=== PATIENT | male | born 1935 | race Caucasian/White ===

== ENCOUNTER 2016-08-31 09:52 | Observation (INO) | payer MEDICARE ==
[2016-08-31] MEDS ORDERED: NS 0.9% 1000 ML* 1,000 ML IV ONE ×3 (10:40→12:12)
[2016-08-31 11:09] LABS: Hematocrit 41 % (42-52); Hemoglobin 13.4 g/dl (14.0-18.0); Mean Corpuscular HGB Conc 33 g/dl (31-36); Mean Corpuscular Hemoglobin 30 pg (27-31); Mean Corpuscular Volume 91 fL (80-94); Mean Platelet Volume 8 um3 (7.4-10.4); Red Blood Count 4.46 10^6/ul (4.0-5.4); Red Cell Distribution Width 13 % (10.5-15); White Blood Count 19.1 10^3/ul (3.5-10.8)
--- NOTE | 2016-08-31 11:37 | RAD ---
HISTORY: Cough COMPARISONS: None VIEWS: 2: Frontal dual-energy and lateral views of the chest. FINDINGS: CARDIOMEDIASTINAL SILHOUETTE: The cardiomediastinal silhouette is normal. MEDINA: The medina are normal. PLEURA: There is a small right pleural effusion. LUNG PARENCHYMA: There is confluent alveolar opacification of the right lung base ABDOMEN: The upper abdomen is clear. There is no subphrenic gas. BONES AND SOFT TISSUES: The patient is status post median sternotomy OTHER: None. IMPRESSION: SMALL RIGHT PLEURAL EFFUSION WITH RIGHT BASILAR ATELECTASIS VERSUS CONSOLIDATION. RECOMMEND FOLLOW-UP UNTIL RESOLUTION TO EXCLUDE UNDERLYING PULMONARY PARENCHYMAL PATHOLOGY.
[2016-08-31] MEDS ORDERED: Levofloxacin 750 MG IVPREMIX(* 750 MG/150 ML BAG IVPB ONE (11:38)
[2016-08-31 11:50] LABS: ALT 20 U/L (7-52); Albumin 3.5 g/dL (3.2-5.2); Alkaline Phosphatase 67 U/L (34-104); BUN/Creatinine Ratio 11.7 (8-20); Blood Urea Nitrogen 17 mg/dL (6-24); CO2 Carbon Dioxide 20 mmol/L (22-32); Calcium 8.4 mg/dL (8.6-10.3); Chloride 105 mmol/L (101-111); EGFR African American 60.2 (>60); EGFR Non-African American 46.8 (>60); Globulin 2.6 g/dL (2-4); Glucose 133 mg/dL (70-100); Sodium 135 mmol/L (133-145); Total Protein 6.1 g/dL (6.4-8.9)
[2016-08-31] MEDS ORDERED: Albuterol HFA INHALER* 8 gm MDI INH PRN (13:04)
--- NOTE | 2016-08-31 13:24 | RAD ---
HISTORY: Right lung density COMPARISONS: August 31, 2016 VIEWS: Right lateral decubitus views of the chest FINDINGS: CARDIOMEDIASTINAL SILHOUETTE: The cardiomediastinal silhouette is stable MEDINA: The medina are normal. PLEURA: There is a partially layering right pleural effusion. LUNG PARENCHYMA: There is persistent confluent alveolar opacification of the right lung base ABDOMEN: The upper abdomen is clear. There is no subphrenic gas. BONES AND SOFT TISSUES: The patient is status post median sternotomy OTHER: None. IMPRESSION: PARTIALLY LAYERING RIGHT PLEURAL EFFUSION WITH RIGHT BASILAR ATELECTASIS VERSUS CONSOLIDATION
--- NOTE | 2016-08-31 13:35 | ADMNOTE ---
Subjective Date of Service: 08/31/16 Interval History: ADMISSION HISTORY AND PHYSICAL EXAM: Allergies Allergy/AdvReac Type Severity Reaction Status Date / Time No Known Allergies Allergy Verified 08/31/16 10:38 Home Medications Medication Instructions Recorded Confirmed Type Albuterol Sulfate [Proair 2 puff INH Q6HR PRN 08/31/16 08/31/16 History Respiclick] Aspirin EC Low Dose* [Ecotrin EC 81 mg PO DAILY 08/31/16 08/31/16 History Low Dose 81 MG*] Benzonatate [Benzonatate 200 MG 200 mg PO TID PRN 08/31/16 08/31/16 History CAP] Montelukast Sodium TAB* [Singulair 10 mg PO DAILY 08/31/16 08/31/16 History TAB*] Propylene Glycol (Ophth) 0.6 % BOTH EYES TID PRN 08/31/16 08/31/16 History [Lubricant Eye Drops] Rosuvastatin (NF) [Crestor] 20 mg PO DAILY 08/31/16 08/31/16 History HPI: The patient has had a poor appetite for about 2 weeks and some pain in his upper back. He and his have had cough for that time. About 9 AM today he went for a walk and felt dizzy. When he came home he collapsed and passed out for a few seconds. He has never done this before. Family History: Findings - unremarkable Social History: Findings - Lives with his who is his SDM. 2 children. Never smoked. Rare alcohol, never a heavy drinker. Lives in [place]. Past Medical History: Findings - CABG 5 yrs ago. Kidney stone, open removal. Review of Systems - Measurements Intake and Output: Intake and Output Last 24 Hours 08/29/16 08/30/16 08/31/16 09/01/16 06:59 06:59 06:59 06:59 Intake Total 2150 Balance 2150 Weight 175 lb Intake: IV Fluids 1999 IVPB 150 - Review of Systems Constitutional Symptoms: Negative: Weight Gain, Weight Loss, Weakness, Fatigue, Fever, Night Sweats, Unexplained Falls, Other Dermatology: Positive: Normal HEENT: Positive: Normal Eyes: Positive: Normal Thyroid: Positive: Normal Pulmonary: Positive: Cough Cardiology: Positive: Normal Gastroenterology: Positive: Anorexia Genital - Urinary: Positive: Normal Endocrinology: Positive: Normal Hematologic/Lymphatic: Negative: Anemia, Easy Brusing, Hx Leukemia, Hx Lymphoma, Use of Anticoagulant, Use of Antiplatelet Drugs, Other Psychiatry: Positive: Normal Allergic/Immunologic: Negative: Hx Anaphylaxis, Hx Angioedema, Hx Environmental, Hx Seasonal, Athsma, Hx HIV, Immunocompromise, Swollen Glands LymphNodes, Other Objective Active Medications: Aspirin (Aspirin Ec Low Dose*) 81 mg PO DAILY [facility] Enoxaparin Sodium (Lovenox(*)) 30 mg SUBCUT Q24H [facility] Levofloxacin/Dextrose (Levaquin 500 Mg Ivpremix(*)) 500 mg in 100 mls @ 100 mls /hr IVPB Q24H [facility] Montelukast Sodium (Singulair Tab*) 10 mg PO DAILY [facility] Non-Formulary Medication (Albuterol Sulfate [Proair Respiclick]) 2 puff INH Q4H PRN PRN Reason: SHORTNESS OF BREATH Non-Formulary Medication (Benzonatate [Benzonatate 200 Mg Cap]) 200 mg PO TID PRN PRN Reason: COUGH Rosuvastatin Calcium (Crestor (Nf)) 5 mg PO DAILY [facility] Vital Signs 08/31/16 08/31/16 08/31/16 10:24 10:31 10:33 Temperature 98.7 F Pulse Rate 84 80 Respiratory 21 21 Rate Blood Pressure 104/62 97/63 (mmHg) O2 Sat by Pulse 98 95 Oximetry 08/31/16 08/31/16 08/31/16 11:00 11:28 11:29 Temperature Pulse Rate 72 74 Respiratory 24 16 18 Rate Blood Pressure 110/68 103/64 (mmHg) O2 Sat by Pulse 98 Oximetry 08/31/16 08/31/16 08/31/16 11:30 11:32 11:34 Temperature Pulse Rate 66 70 95 Respiratory 16 18 20 Rate Blood Pressure 103/64 75/48 75/48 (mmHg) O2 Sat by Pulse 98 98 98 Oximetry 08/31/16 08/31/16 08/31/16 11:37 12:00 12:30 Temperature Pulse Rate 66 66 69 Respiratory 21 18 21 Rate Blood Pressure 106/61 115/67 114/56 (mmHg) O2 Sat by Pulse 98 98 98 Oximetry 08/31/16 13:14 Temperature 97.8 F Pulse Rate 85 Respiratory 16 Rate Blood Pressure 119/69 (mmHg) O2 Sat by Pulse Oximetry Oxygen Devices in Use Now: None Appearance: Alert, partly up on ED stretcher. In good spirits. Looks comfortable. Eyes: No Scleral Icterus, PERRLA Ears/Nose/Mouth/Throat: Clear Oropharnyx, Mucous Membranes Moist Neck: NL Appearance and Movements; NL JVP, No Thyroid Enlargement, Masses Respiratory: Symmetrical Chest Expansion and Respiratory Effort, Clear to Percussion, - - diminished BS R base Cardiovascular: NL Sounds; No Murmurs; No JVD, RRR, No Edema, - Abdominal: NL Sounds; No Tenderness; No Distention, No Hepatosplenomegaly, - Extremities: No Edema, No Clubbing, Cyanosis, - Skin: No Rash or Ulcers, No Nodules or Sclerosis, - Neurological: Alert and Oriented x 3, NL Sensation Result Diagrams: 08/31/16 10:55 08/31/16 10:55 Additional Lab and Data: Lab Results 08/31/16 08/31/16 08/31/16 Range/Units 10:55 10:55 10:55 WBC 19.1 H (3.5-10.8) 10^3/ul RBC 4.46 (4.0-5.4) 10^6/ul Hgb 13.4 L (14.0-18.0) g/dl Hct 41 L (42-52) % MCV 91 (80-94) fL MCH 30 (27-31) pg MCHC 33 (31-36) g/dl RDW 13 (10.5-15) % Plt Count 261 (150-450) 10^3/ul MPV 8 (7.4-10.4) um3 Neut % (Auto) 86.4 H (38-83) % Lymph % (Auto) 7.2 L (25-47) % [place] % (Auto) 6.0 (1-9) % Eos % (Auto) 0.2 (0-6) % Baso % (Auto) 0.2 (0-2) % Absolute Neuts (auto) 16.5 H (1.5-7.7) 10^3/ul Absolute Lymphs (auto) 1.4 (1.0-4.8) 10^3/ul Absolute Monos (auto) 1.1 H (0-0.8) 10^3/ul Absolute Eos (auto) 0 (0-0.6) 10^3/ul Absolute Basos (auto) 0 (0-0.2) 10^3/ul Absolute Nucleated RBC 0 10^3/ul Nucleated RBC % 0 Sodium 135 (133-145) mmol/L Potassium TNP Chloride 105 (101-111) mmol/L Carbon Dioxide 20 L (22-32) mmol/L Anion Gap TNP BUN 17 (6-24) mg/dL Creatinine 1.45 H (0.67-1.17) mg/dL Est GFR ( Amer) 60.2 (>60) Est GFR (Non-Af Amer) 46.8 (>60) BUN/Creatinine Ratio 11.7 (8-20) Glucose 133 H (70-100) mg/dL Lactic Acid 1.8 (0.5-2.0) mmol/L Calcium 8.4 L (8.6-10.3) mg/dL Total Bilirubin 0.70 (0.2-1.0) mg/dL AST TNP ALT 20 (7-52) U/L Alkaline Phosphatase 67 (34-104) U/L CK-MB (CK-2) 4.4 (0.6-6.3) ng/mL Troponin I 0.00 (<0.04) ng/mL C-Reactive Protein 85.20 H (< 5.00) mg/L B-Natriuretic Peptide ( - 100) pg/mL Total Protein 6.1 L (6.4-8.9) g/dL Albumin 3.5 (3.2-5.2) g/dL Globulin 2.6 (2-4) g/dL Albumin/Globulin Ratio 1.3 (1-3) Influenza A (Rapid) (Negative) Influenza B (Rapid) (Negative) 08/31/16 08/31/16 Range/Units 10:55 11:18 WBC (3.5-10.8) 10^3/ul RBC (4.0-5.4) 10^6/ul Hgb (14.0-18.0) g/dl Hct (42-52) % MCV (80-94) fL MCH (27-31) pg MCHC (31-36) g/dl RDW (10.5-15) % Plt Count (150-450) 10^3/ul MPV (7.4-10.4) um3 Neut % (Auto) (38-83) % Lymph % (Auto) (25-47) % [place] % (Auto) (1-9) % Eos % (Auto) (0-6) % Baso % (Auto) (0-2) % Absolute Neuts (auto) (1.5-7.7) 10^3/ul Absolute Lymphs (auto) (1.0-4.8) 10^3/ul Absolute Monos (auto) (0-0.8) 10^3/ul Absolute Eos (auto) (0-0.6) 10^3/ul Absolute Basos (auto) (0-0.2) 10^3/ul Absolute Nucleated RBC 10^3/ul Nucleated RBC % Sodium (133-145) mmol/L Potassium Chloride (101-111) mmol/L Carbon Dioxide (22-32) mmol/L Anion Gap BUN (6-24) mg/dL Creatinine (0.67-1.17) mg/dL Est GFR ( Amer) (>60) Est GFR (Non-Af Amer) (>60) BUN/Creatinine Ratio (8-20) Glucose (70-100) mg/dL Lactic Acid (0.5-2.0) mmol/L Calcium (8.6-10.3) mg/dL Total Bilirubin (0.2-1.0) mg/dL AST ALT (7-52) U/L Alkaline Phosphatase (34-104) U/L CK-MB (CK-2) (0.6-6.3) ng/mL Troponin I (<0.04) ng/mL C-Reactive Protein (< 5.00) mg/L B-Natriuretic Peptide 101 H ( - 100) pg/mL Total Protein (6.4-8.9) g/dL Albumin (3.2-5.2) g/dL Globulin (2-4) g/dL Albumin/Globulin Ratio (1-3) Influenza A (Rapid) Negative (Negative) Influenza B (Rapid) Negative (Negative) Microbiology and Other Data: Microbiology 08/31/16 10:55 Influenza Types A,B Antigen (ABDON) - Final Nasal Specimen received for Influenza A/B Molecular testing Assess/Plan/Problems-Billing Assessment: - Patient Problems (1) Pleural effusion, right Current Visit: Yes Status: Acute Code(s): J90 - PLEURAL EFFUSION, NOT ELSEWHERE CLASSIFIED SNOMED Code(s): 81213243 Comment: Echo, decubitus X-rays pending. Continue levofloxacin. (2) Syncope Current Visit: Yes Status: Acute Code(s): R55 - SYNCOPE AND COLLAPSE SNOMED Code(s): 784705156 Comment: Tele. Orthostatic VS, cortisol level, echo. (3) CAD (coronary artery disease) Current Visit: Yes Status: Acute Code(s): I25.10 - ATHSCL HEART DISEASE OF [place] CORONARY ARTERY W/O ANG PCTRS SNOMED Code(s): 02316795 Comment: Continue ASA, rosuvastatin.
--- NOTE | 2016-08-31 13:41 | RAD ---
INDICATION: Airspace disease right lower chest COMPARISON: Chest x-ray same date TECHNIQUE: Real-time scans the right lower chest were obtained FINDINGS: There is a small right-sided pleural effusion. The chest x-ray findings also demonstrate the presence of infiltrate or atelectasis IMPRESSION: SMALL RIGHT-SIDED EFFUSION
--- NOTE | 2016-08-31 13:56 | ED ---
Kevin Collazo Matthew, scribed for Terrance Mortensen MD on 08/31/16 at 1024 . Syncope/Near Syncope - HPI Summary HPI Summary: An 80 y/o male presents to the ED after syncopating this morning. Today, the patient became lightheaded while walking and had syncopal episode with LOC. Associated symptoms include SOB, lightheadedness, decreased appetite, and paleness. The patient denies fever, headache, and palpitations. Per the daughter , the patient has been general ill for 1.5 weeks with an associated constant cough. As a result of the cough, the patient has had chest pain and back pain. The patient has a Hx of CABG x3 5 years ago and HLD. - History Of Current Complaint Hx Obtained From: Patient, Family/Stogie Packer - Daughter Onset/Duration: Resolved Timing: Seconds Context: Loss Of Consciousness Activity At Onset: Exertion Associated Head Trauma: No Aggravating Factor(s): Exertion Alleviating Factor(s): Spontaneous Resolution Associated Signs And Symptoms: Decreased Oral Intake, Lightheadedness, Shortness Of Breath, Other - pale, chest pain secondary to coughing, back pain secondary to coughing - Allergies/Home Medications Allergies/Adverse Reactions: Allergies Allergy/AdvReac Type Severity Reaction Status Date / Time No Known Allergies Allergy Verified 08/31/16 10:38 Home Medications: Home Medications Albuterol Sulfate [Proair Respiclick] 2 puff INH Q6HR PRN 08/31/16 [History Confirmed 08/31/16] Aspirin EC Low Dose* [Ecotrin EC Low Dose 81 MG*] 81 mg PO DAILY 08/31/16 [ History Confirmed 08/31/16] Benzonatate [Benzonatate 200 MG CAP] 200 mg PO TID PRN 08/31/16 [History Confirmed 08/31/16] Montelukast Sodium TAB* [Singulair TAB*] 10 mg PO DAILY 08/31/16 [History Confirmed 08/31/16] Propylene Glycol (Ophth) [Lubricant Eye Drops] 0.6 % BOTH EYES TID PRN 08/31/16 [History Confirmed 08/31/16] Rosuvastatin (NF) [Crestor] 20 mg PO DAILY 08/31/16 [History Confirmed 08/31/16] PMH/Surg Hx/FS Hx/Imm Hx Cardiovascular History: Reports: Hx Hypercholesterolemia Denies: Hx Hypertension Respiratory History: Reports: Hx Chronic Bronchitis - Surgical History Surgery Procedure, Year, and Place: CABG x3 Infectious Disease History: Denies: Traveled Outside the [place] in Last 30 Days - Family History Known Family History: Negative: Cardiac Disease, Hypertension, Diabetes - Social History Lives: With Family Alcohol Use: None Hx Substance Use: No Substance Use Type: Reports: None Hx Tobacco Use: No Review of Systems Constitutional: Other - Pale Negative: Fever Eyes: Negative ENT: Negative Positive: Chest Pain - secondary to coughing. Negative: Palpitations Positive: Shortness Of Breath, Cough Gastrointestinal: Negative Genitourinary: Negative Positive: Myalgia - back pain secondary to coughing Skin: Negative Neurological: Other - lightheadedness Negative: Headache Psychological: Normal All Other Systems Reviewed And Are Negative: Yes Physical Exam - Summary Physical Exam Summary: GENERAL: Patient is a well developed and nourished male who is lying comfortable in the stretcher. Patient is not in any acute respiratory distress. HEAD AND FACE: No signs of trauma. No ecchymosis, hematomas or skull depressions. No sinus tenderness. EYES: PERRLA, EOMI x 2, No injected conjunctiva, no nystagmus. No photophobia. EARS: Hearing grossly intact. Ear canals and tympanic membranes are within normal limits. MOUTH: Oropharynx within normal limits. NECK: Supple, trachea is midline, no adenopathy, no JVD, no carotid bruit, no c- spine tenderness, neck with full ROM. No meningeal signs, no Kernig's or brudzinskis signs. CHEST: Symmetric, no tenderness at palpation. Positive well healed scar in the center of the chest secondary to an old scar. LUNGS: Positive bilateral crackles. CVS: Regular rate and rhythm, S1 and S2 present, no murmurs or gallops appreciated. ABDOMEN: Soft, non-tender. No signs of distention. No rebound no guarding, and no masses palpated. Bowel sounds are normal. EXTREMITIES: FROM in all major joints, no edema, no cyanosis or clubbing. NEURO: Alert and oriented x 3. No acute neurological deficits. Speech is normal and follows commands. SKIN: Dry and warm Triage Information Reviewed: Yes Vital Signs On Initial Exam: Initial Vitals Temp Pulse Resp BP Pulse Ox 98.7 F 82 21 104/62 98 04/12/17 10:24 08/31/16 10:24 08/31/16 10:24 08/31/16 10:24 08/31/16 10:24 Vital Signs Reviewed: Yes Diagnostics - Vital Signs Vital Signs Temp Pulse Resp BP Pulse Ox 08/31/16 11:34 95 20 75/48 98 08/31/16 11:29 74 18 103/64 08/31/16 11:28 72 16 110/68 98 08/31/16 11:00 24 08/31/16 10:33 80 21 95 08/31/16 10:31 97/63 08/31/16 10:24 98.7 F 84 21 104/62 98 - Laboratory Lab Results: Lab Results 08/31/16 08/31/16 08/31/16 Range/Units 10:55 10:55 10:55 WBC 19.1 H (3.5-10.8) 10^3/ul RBC 4.46 (4.0-5.4) 10^6/ul Hgb 13.4 L (14.0-18.0) g/dl Hct 41 L (42-52) % MCV 91 (80-94) fL MCH 30 (27-31) pg MCHC 33 (31-36) g/dl RDW 13 (10.5-15) % Plt Count 261 (150-450) 10^3/ul MPV 8 (7.4-10.4) um3 Neut % (Auto) 86.4 H (38-83) % Lymph % (Auto) 7.2 L (25-47) % [place] % (Auto) 6.0 (1-9) % Eos % (Auto) 0.2 (0-6) % Baso % (Auto) 0.2 (0-2) % Absolute Neuts (auto) 16.5 H (1.5-7.7) 10^3/ul Absolute Lymphs (auto) 1.4 (1.0-4.8) 10^3/ul Absolute Monos (auto) 1.1 H (0-0.8) 10^3/ul Absolute Eos (auto) 0 (0-0.6) 10^3/ul Absolute Basos (auto) 0 (0-0.2) 10^3/ul Absolute Nucleated RBC 0 10^3/ul Nucleated RBC % 0 Sodium 135 (133-145) mmol/L Potassium TNP Chloride 105 (101-111) mmol/L Carbon Dioxide 20 L (22-32) mmol/L Anion Gap TNP BUN 17 (6-24) mg/dL Creatinine 1.45 H (0.67-1.17) mg/dL Est GFR ( Amer) 60.2 (>60) Est GFR (Non-Af Amer) 46.8 (>60) BUN/Creatinine Ratio 11.7 (8-20) Glucose 133 H (70-100) mg/dL Lactic Acid 1.8 (0.5-2.0) mmol/L Calcium 8.4 L (8.6-10.3) mg/dL Total Bilirubin 0.70 (0.2-1.0) mg/dL AST TNP ALT 20 (7-52) U/L Alkaline Phosphatase 67 (34-104) U/L CK-MB (CK-2) 4.4 (0.6-6.3) ng/mL Troponin I 0.00 (<0.04) ng/mL C-Reactive Protein 85.20 H (< 5.00) mg/L B-Natriuretic Peptide ( - 100) pg/mL Total Protein 6.1 L (6.4-8.9) g/dL Albumin 3.5 (3.2-5.2) g/dL Globulin 2.6 (2-4) g/dL Albumin/Globulin Ratio 1.3 (1-3) Influenza A (Rapid) (Negative) Influenza B (Rapid) (Negative) 08/31/16 08/31/16 Range/Units 10:55 11:18 WBC (3.5-10.8) 10^3/ul RBC (4.0-5.4) 10^6/ul Hgb (14.0-18.0) g/dl Hct (42-52) % MCV (80-94) fL MCH (27-31) pg MCHC (31-36) g/dl RDW (10.5-15) % Plt Count (150-450) 10^3/ul MPV (7.4-10.4) um3 Neut % (Auto) (38-83) % Lymph % (Auto) (25-47) % [place] % (Auto) (1-9) % Eos % (Auto) (0-6) % Baso % (Auto) (0-2) % Absolute Neuts (auto) (1.5-7.7) 10^3/ul Absolute Lymphs (auto) (1.0-4.8) 10^3/ul Absolute Monos (auto) (0-0.8) 10^3/ul Absolute Eos (auto) (0-0.6) 10^3/ul Absolute Basos (auto) (0-0.2) 10^3/ul Absolute Nucleated RBC 10^3/ul Nucleated RBC % Sodium (133-145) mmol/L Potassium Chloride (101-111) mmol/L Carbon Dioxide (22-32) mmol/L Anion Gap BUN (6-24) mg/dL Creatinine (0.67-1.17) mg/dL Est GFR ( Amer) (>60) Est GFR (Non-Af Amer) (>60) BUN/Creatinine Ratio (8-20) Glucose (70-100) mg/dL Lactic Acid (0.5-2.0) mmol/L Calcium (8.6-10.3) mg/dL Total Bilirubin (0.2-1.0) mg/dL AST ALT (7-52) U/L Alkaline Phosphatase (34-104) U/L CK-MB (CK-2) (0.6-6.3) ng/mL Troponin I (<0.04) ng/mL C-Reactive Protein (< 5.00) mg/L B-Natriuretic Peptide 101 H ( - 100) pg/mL Total Protein (6.4-8.9) g/dL Albumin (3.2-5.2) g/dL Globulin (2-4) g/dL Albumin/Globulin Ratio (1-3) Influenza A (Rapid) Negative (Negative) Influenza B (Rapid) Negative (Negative) Result Diagrams: 08/31/16 10:55 08/31/16 10:55 Lab Statement: Any lab studies that have been ordered have been reviewed, and results considered in the medical decision making process. - Radiology CXR Xray Interpretation: Positive (See Comments) - IMPRESSION: SMALL RIGHT PLEURAL EFFUSION WITH RIGHT BASILAR ATELECTASIS VERSUS CONSOLIDATION. RECOMMEND FOLLOW- UP UNTIL RESOLUTION TO EXCLUDE UNDERLYING PULMONARY PARENCHYMAL PATHOLOGY. Radiology Interpretation Completed By: Radiologist - EKG 09:55 Cardiac Rate: NL - 80 bpm EKG Rhythm: Sinus Rhythm EKG Interpretation: No STEMI, low voltage EKG Course/Dx Assessment/Plan: An 80 y/o male presents to the ED after syncopating this morning. Today, the patient became lightheaded while walking and had a syncopal with LOC. Associated symptoms include SOB, lightheadedness, decreased appetite, and paleness. The patient denies fever, headache, and palpitations. Per the daughter, the patient has been general ill for 1.5 weeks with an associated constant cough. As a result of the cough, the patient has had chest pain and back pain. The patient has a Hx of CABG x3 5 years ago and HLD. Blood work shows WBC of 19.1 with chronic slight anemia, no bands. Creatinine 1.45 possibly secondary to dehydration. Glucose of 133, calcium of 8.4, C - reactive protein of 85.2, and BNP of 101. Influenza A&B is negative. CXR shows small right pleural effusion with right basilar atelectasis versus consolidation. In the ED course, the patient was slightly hypotensive and was given 2L IV fluids. He was placed on Levaquin for the pneumonia. The patient was positive for orthostatics possibly secondary to dehydration again. At this point, I discussed my physical exam findings with Dr. Ivan who will admit the patient. He will decide if the patient goes to telemetry or ICU. However, his BP has improved. - Diagnoses Provider Diagnoses: Pneumonia, Orthostatic hypotension, SYNCOPE - Physician Notifications Discussed Care Of Patient With: Dr. Ivan (Hospitalist) at 12:01 -- Notified of patient's history and will admit the patient. Discharge - Discharge Plan Condition: Stable Disposition: ADMITTED TO [facility] documentation as recorded by the Kevin valencia Matthew accurately reflects the service I personally performed and the decisions made by me, Terrance Mortensen MD.
[2016-08-31] MEDS: Enoxaparin(*) 40 MG/0.4 ML SYR SUBCUT SCH ×2 (14:34→14:40)
[2016-08-31] MEDS: Benzonatate CAP* 100 MG PO PRN ×2 (14:34→21:37)
[2016-08-31] MEDS ORDERED: Enoxaparin(*) 30 MG/0.3 ML SYR SUBCUT SCH (15:00)
[2016-08-31] MEDS: HYDROcodone/ACETAMIN 5-325 MG* 1 TAB PO PRN ×2 (15:12→18:33)
[2016-08-31] MEDS ORDERED: Perflutren Prot Type A Micr (NF) 3 ML SDV IV ONE ×2 (15:58→16:02)
[2016-08-31 16:12] LABS: BUN/Creatinine Ratio 13.6 (8-20); Calcium 7.5 mg/dL (8.6-10.3); EGFR African American 76.4 (>60); EGFR Non-African American 59.4 (>60)
--- NOTE | 2016-08-31 17:13 | ECHO ---
Patient: DAVID LINDO [facility] Rec#: [id number] : 1935 Date: 08/31/2016 Age: 80y Height: 170.18 cm / 67.0 in Weight: 79.38 kg / 175.0 lbs Sex: M BSA: 1.91 Room#: 453 Admit Date#: 08/31/2016 Type: Inpatient Referring: Idris Ivan MD Reading: Anna Huntley MD Story Reader: Nalini JimenezRDCS,RDMS Transthoracic Echocardiogram Indication: Syncope BP: 119/69 HR: 84 Rhythm: NSR Indications Syncope Findings History: CAD, CABG, HLD. Technical Comments: The study quality is fair. Left Ventricle: The left ventricular chamber size is normal. Mild concentric left ventricular hypertrophy is observed. Global left ventricular wall motion and contractility are within normal limits. The estimated ejection fraction is 60-65%. Abnormal left ventricular diastolic filling is observed, consistent with impaired relaxation. Left Atrium: The left atrium is slightly dilated. Right Ventricle: The right ventricular cavity size is normal. The right ventricular global systolic function is low normal. Right Atrium: The right atrium is not well visualized. Aortic Valve: The aortic valve leaflets are mildly thickened. There is no evidence of aortic regurgitation. There is no evidence of aortic stenosis. Mitral Valve: The mitral valve leaflets appear normal. There is no evidence of mitral regurgitation. There is no evidence of mitral stenosis. Tricuspid Valve: The tricuspid valve leaflets are normal. There is no evidence of tricuspid valve regurgitation. Unable to estimate the right ventricular systolic pressure. Pulmonic Valve: The pulmonic valve structure is not well visualized. Pericardium: There is no significant pericardial effusion. Aorta: There is no dilatation of the aortic arch. The aortic root is normal in size. Pulmonary Artery: The main pulmonary artery is not well visualized. Venous: The inferior vena cava is not visualized. Contrast: Optison was used to optimize study. A total of 1 ml was used. Conclusions Mild concentric left ventricular hypertrophy is observed. Global left ventricular wall motion and contractility are within normal limits, normal to hyperdynamic systolic function. Echo enhancement agent used, good deliniation of endothelial wall. The estimated ejection fraction is 65%. Abnormal left ventricular diastolic filling is observed, consistent with impaired relaxation. The right ventricular global systolic function is low normal. All valves show grossly normal function. The aortic valve leaflets are mildly thickened with good function. No prior echo to compare. Measurements Name Value Normal Range RVIDd (AP) 2D 2 cm (0.9 - 2.6) IVSd (2D) 1.3 cm (0.6 - 1) LVPWd (2D) 1.2 cm (0.6 - 1) LVIDd (2D) 3.4 cm (3.6 - 5.4) LVIDs (2D) 2.5 cm - LV FS (2D) 26 % (25 - 45) Aortic Annulus 2 cm (1.4 - 2.6) Ao root diameter (2D) 2.6 cm (2.1 - 3.5) Ascending Ao 2.6 cm (2.1 - 3.4) Aortic arch 2.5 cm (1.8 - 3.4) LA dimension (AP) 2D 3.5 cm (2.3 - 3.8) LAd ISD 4CH 4.6 cm (2.9 - 5.3) LA ISD 4CH W 4.6 cm (2.5 - 4.5) Name Value Normal Range MV E-wave Vmax 0.6 m/sec - MV deceleration time 192 msec - MV A-wave Vmax 0.8 m/sec - MV E:A ratio 0.7 ratio - LV septal e' Vmax 0.06 m/sec - LV lateral e' Vmax 0.09 m/sec - LV E:e' septal ratio 10 ratio - LV E:e' lateral ratio 7 ratio - Name Value Normal Range AV Vmax 1.1 m/sec - AV VTI 19 cm - AV peak gradient 5 mmHg - AV mean gradient 2.4 mmHg - LVOT Vmax 0.9 m/sec - LVOT VTI 17 cm - LVOT peak gradient 3.2 mmHg - LVOT mean gradient 1.8 mmHg - JUAN Vmax 0.6 m/sec - Name Value Normal Range RAP 8 mmHg - Name Value Normal Range PV Vmax 0.7 m/sec - PV peak gradient 2 mmHg -
[2016-08-31] MEDS ORDERED: NS 0.9% 1000 ML* 1,000 ML IV SCH (18:30)
[2016-08-31] MEDS ORDERED: Atorvastatin* 10 MG TAB PO SCH (21:00)
[2016-08-31] MEDS ORDERED: Aspirin EC Low Dose* 81 MG TAB.EC PO SCH (21:00)
[2016-08-31] MEDS ORDERED: Montelukast Sodium TAB* 10 MG PO SCH (21:00)
[2016-09-01] MEDS: Benzonatate CAP* 100 MG PO PRN (06:44)
[2016-09-01] MEDS: HYDROcodone/ACETAMIN 5-325 MG* 1 TAB PO PRN (06:47)
[2016-09-01] MEDS ORDERED: Levofloxacin TAB* 250 MG PO ONE (09:02)
--- NOTE | 2016-09-01 09:04 | DCNOTE ---
"Subjective Date of Service: 09/01/16 Interval History: Feels much better today. Cough with yellow sputum, mild. Not SOB. R chest pain improved, responds well to hydrocodone/APAP. Cough responded well to benzonatate. Family History: Findings - unremarkable Social History: Findings - Lives with his who is his SDM. 2 children. Never smoked. Rare alcohol, never a heavy drinker. Lives in [place]. Past Medical History: Findings - CABG 5 yrs ago. Kidney stone, open removal. Objective Active Medications: Hydrocodone Bitart/Acetaminophen ([place] [address] 5-325 Tab*) 1 tab PO Q3H PRN PRN Reason: PAIN - MODERATE Last Admin: 09/01/16 06:47 Dose: 1 tab Albuterol (Ventolin Hfa Inhaler*) 2 puff INH Q4H PRN PRN Reason: SHORTNESS OF BREATH Aspirin (Aspirin Ec Low Dose*) 81 mg PO BEDTIME [facility] Last Admin: 08/31/16 21:36 Dose: 81 mg Atorvastatin Calcium (Lipitor*) 10 mg PO BEDTIME [facility] Last Admin: 08/31/16 21:36 Dose: 10 mg Benzonatate (Tessalon Cap*) 200 mg PO TID PRN PRN Reason: COUGH Last Admin: 09/01/16 06:44 Dose: 200 mg Enoxaparin Sodium (Lovenox(*)) 30 mg SUBCUT Q24H [facility] Last Admin: 08/31/16 15:13 Dose: 30 mg Levofloxacin/Dextrose (Levaquin 250 Mg Ivpremx(*)) 250 mg in 50 mls @ 50 mls/ hr IVPB Q24H [facility] Sodium Chloride (Ns 0.9% 1000 Ml*) 1,000 mls @ 75 mls/hr IV PER RATE [facility] Last Admin: 08/31/16 18:34 Dose: 75 mls/hr Montelukast Sodium (Singulair Tab*) 10 mg PO BEDTIME [facility] Last Admin: 08/31/16 21:36 Dose: 10 mg Vital Signs 08/31/16 08/31/16 08/31/16 12:30 13:13 13:14 Temperature 97.8 F Pulse Rate 69 85 Respiratory 21 16 Rate Blood Pressure 114/56 119/69 119/69 (mmHg) O2 Sat by Pulse 98 Oximetry 08/31/16 08/31/16 08/31/16 13:15 13:30 13:59 Temperature Pulse Rate 74 72 73 Respiratory 20 19 20 Rate Blood Pressure 119/70 (mmHg) O2 Sat by Pulse 97 96 99 Oximetry 08/31/16 08/31/16 08/31/16 14:15 14:47 15:12 Temperature 97.2 F Pulse Rate 81 Respiratory 22 22 16 Rate Blood Pressure 136/70 (mmHg) O2 Sat by Pulse 100 Oximetry 08/31/16 08/31/16 08/31/16 15:17 17:12 18:33 Temperature 97.9 F Pulse Rate 88 Respiratory 16 14 16 Rate Blood Pressure 112/54 (mmHg) O2 Sat by Pulse 98 Oximetry 08/31/16 08/31/16 09/01/16 19:24 20:26 00:55 Temperature 98.0 F 97.6 F Pulse Rate 83 79 Respiratory 18 16 20 Rate Blood Pressure 111/58 133/67 (mmHg) O2 Sat by Pulse 93 96 Oximetry 09/01/16 09/01/16 03:24 06:47 Temperature 97.5 F Pulse Rate 81 Respiratory 20 16 Rate Blood Pressure 132/64 (mmHg) O2 Sat by Pulse 97 Oximetry Oxygen Devices in Use Now: None Appearance: Alert, sitting on the edge of his bed. In good spirits. Looks comfortable. Eyes: No Scleral Icterus Ears/Nose/Mouth/Throat: Clear Oropharnyx, Mucous Membranes Moist Neck: NL Appearance and Movements; NL JVP, No Thyroid Enlargement, Masses Respiratory: Symmetrical Chest Expansion and Respiratory Effort, Clear to Percussion, - - Fatty consistency enlarged area R upper axillary/back area, ? lipoma. No tenderness. Cardiovascular: NL Sounds; No Murmurs; No JVD, RRR, No Edema, - Extremities: No Edema, No Clubbing, Cyanosis, - Skin: No Nodules or Sclerosis, - - mild ecchymosis lower R axillary line and R back. Neurological: Alert and Oriented x 3, NL Sensation Result Diagrams: 08/31/16 10:55 08/31/16 15:44 Additional Lab and Data: Lab Results 08/31/16 08/31/16 08/31/16 Range/Units 10:55 10:55 10:55 WBC 19.1 H (3.5-10.8) 10^3/ul RBC 4.46 (4.0-5.4) 10^6/ul Hgb 13.4 L (14.0-18.0) g/dl Hct 41 L (42-52) % MCV 91 (80-94) fL MCH 30 (27-31) pg MCHC 33 (31-36) g/dl RDW 13 (10.5-15) % Plt Count 261 (150-450) 10^3/ul MPV 8 (7.4-10.4) um3 Neut % (Auto) 86.4 H (38-83) % Lymph % (Auto) 7.2 L (25-47) % Wake % (Auto) 6.0 (1-9) % Eos % (Auto) 0.2 (0-6) % Baso % (Auto) 0.2 (0-2) % Absolute Neuts (auto) 16.5 H (1.5-7.7) 10^3/ul Absolute Lymphs (auto) 1.4 (1.0-4.8) 10^3/ul Absolute Monos (auto) 1.1 H (0-0.8) 10^3/ul Absolute Eos (auto) 0 (0-0.6) 10^3/ul Absolute Basos (auto) 0 (0-0.2) 10^3/ul Absolute Nucleated RBC 0 10^3/ul Nucleated RBC % 0 Sodium 135 (133-145) mmol/L Potassium TNP Chloride 105 (101-111) mmol/L Carbon Dioxide 20 L (22-32) mmol/L Anion Gap TNP BUN 17 (6-24) mg/dL Creatinine 1.45 H (0.67-1.17) mg/dL Est GFR ( Amer) 60.2 (>60) Est GFR (Non-Af Amer) 46.8 (>60) BUN/Creatinine Ratio 11.7 (8-20) Glucose 133 H (70-100) mg/dL Lactic Acid 1.8 (0.5-2.0) mmol/L Calcium 8.4 L (8.6-10.3) mg/dL Total Bilirubin 0.70 (0.2-1.0) mg/dL AST TNP ALT 20 (7-52) U/L Alkaline Phosphatase 67 (34-104) U/L CK-MB (CK-2) 4.4 (0.6-6.3) ng/mL Troponin I 0.00 (<0.04) ng/mL C-Reactive Protein 85.20 H (< 5.00) mg/L B-Natriuretic Peptide ( - 100) pg/mL Total Protein 6.1 L (6.4-8.9) g/dL Albumin 3.5 (3.2-5.2) g/dL Globulin 2.6 (2-4) g/dL Albumin/Globulin Ratio 1.3 (1-3) Influenza A (Rapid) (Negative) Influenza B (Rapid) (Negative) 08/31/16 08/31/16 Range/Units 10:55 11:18 WBC (3.5-10.8) 10^3/ul RBC (4.0-5.4) 10^6/ul Hgb (14.0-18.0) g/dl Hct (42-52) % MCV (80-94) fL MCH (27-31) pg MCHC (31-36) g/dl RDW (10.5-15) % Plt Count (150-450) 10^3/ul MPV (7.4-10.4) um3 Neut % (Auto) (38-83) % Lymph % (Auto) (25-47) % Wake % (Auto) (1-9) % Eos % (Auto) (0-6) % Baso % (Auto) (0-2) % Absolute Neuts (auto) (1.5-7.7) 10^3/ul Absolute Lymphs (auto) (1.0-4.8) 10^3/ul Absolute Monos (auto) (0-0.8) 10^3/ul Absolute Eos (auto) (0-0.6) 10^3/ul Absolute Basos (auto) (0-0.2) 10^3/ul Absolute Nucleated RBC 10^3/ul Nucleated RBC % Sodium (133-145) mmol/L Potassium Chloride (101-111) mmol/L Carbon Dioxide (22-32) mmol/L Anion Gap BUN (6-24) mg/dL Creatinine (0.67-1.17) mg/dL Est GFR ( Amer) (>60) Est GFR (Non-Af Amer) (>60) BUN/Creatinine Ratio (8-20) Glucose (70-100) mg/dL Lactic Acid (0.5-2.0) mmol/L Calcium (8.6-10.3) mg/dL Total Bilirubin (0.2-1.0) mg/dL AST ALT (7-52) U/L Alkaline Phosphatase (34-104) U/L CK-MB (CK-2) (0.6-6.3) ng/mL Troponin I (<0.04) ng/mL C-Reactive Protein (< 5.00) mg/L B-Natriuretic Peptide 101 H ( - 100) pg/mL Total Protein (6.4-8.9) g/dL Albumin (3.2-5.2) g/dL Globulin (2-4) g/dL Albumin/Globulin Ratio (1-3) Influenza A (Rapid) Negative (Negative) Influenza B (Rapid) Negative (Negative) Microbiology and Other Data: Microbiology 08/31/16 10:55 Influenza Types A,B Antigen (ABDON) - Final Nasal Specimen received for Influenza A/B Molecular testing Assess/Plan/Problems-Billing Assessment: - Patient Problems (1) Pleural effusion, right Current Visit: Yes Status: Acute Code(s): J90 - PLEURAL EFFUSION, NOT ELSEWHERE CLASSIFIED SNOMED Code(s): 13013486 Comment: Small effusion on echo, suspect parapneumonic effusion. I note his has URI sx's. Continue levofloxacin 6 more days as outpt. (2) Syncope Current Visit: Yes Status: Acute Code(s): R55 - SYNCOPE AND COLLAPSE SNOMED Code(s): 822120260 Comment: Tele showed no significant arrhytmias. Cortisol level 22. Echo unremarkable. (3) CAD (coronary artery disease) Current Visit: Yes Status: Acute Code(s): I25.10 - ATHSCL HEART DISEASE OF [place] CORONARY ARTERY W/O ANG PCTRS SNOMED Code(s): 85054638 Comment: Continue ASA, rosuvastatin. Status and Disposition: Discharge now. Pt offered fup at [facility]. Search Terms: jarod stoll, 1935 Search Date: 09/01/2016 09:08:13 AM This report was requested by: Idris Ivan | Reference #: [id number] There are no results for the search terms that you entered."
[2016-09-01 09:15] LABS: Hematocrit 31 % (42-52); Hemoglobin 10.2 g/dl (14.0-18.0); Mean Corpuscular HGB Conc 33 g/dl (31-36); Mean Corpuscular Hemoglobin 30 pg (27-31); Mean Corpuscular Volume 90 fL (80-94); Mean Platelet Volume 8 um3 (7.4-10.4); Red Blood Count 3.44 10^6/ul (4.0-5.4); Red Cell Distribution Width 13 % (10.5-15); White Blood Count 14.2 10^3/ul (3.5-10.8)
[2016-09-01 09:43] VITALS: BP 125/71
[2016-09-01] MEDS ORDERED: Levofloxacin 250 MG IVPREMX(*) 250 MG/50 ML BAG IVPB SCH (13:00)
--- NOTE | 2016-09-02 01:06 | DS ---
DISCHARGE SUMMARY: DATE OF ADMISSION: 08/31/16 DATE OF DISCHARGE: 09/01/16 HISTORY: This 80-year-old man presented with URI symptoms and an episode of syncope on the morning of admission. He probably was a little bit dehydrated from his upper respiratory infection. He had been to an outpatient clinic and was given albuterol as his only treatment. He was coughing up a little yellow sputum by the time of his discharge. A chest x-ray showed a small right pleural effusion. This was confirmed on ultrasound. His white blood count was 19,000; this is going to be repeated before discharge. He was given intravenous levofloxacin and benzonatate. He was markedly better the next hospital day. He was afebrile throughout his hospital stay. He did not require oxygen. His pain in his right chest is controlled with hydrocodone/acetaminophen. Clinically, he was much improved. He did have an ecchymosis on his right chest, which I suspect is due to a rib fracture related to his coughing spells. There was some soft tissue excess on the axillary line towards the scapular area, which I think may be a lipoma. The patient was not aware of this. He was really not very tender there. FINAL DIAGNOSES: 1. Pneumonia with parapneumonic effusion. Recommend repeat chest x-ray in 6 weeks. 2. Syncope with negative echocardiogram, normal cortisol level. 3. Coronary artery disease. 4. Mild conjunctivitis, right eye. DISCHARGE MEDICATIONS: 1. Benzonatate 200 mg t.i.d. p.r.n. 2. Levofloxacin 250 mg daily for 6 more days. 3. Albuterol sulfate 2 puffs every 6 hours p.r.n. 4. Montelukast 10 mg daily. 5. Aspirin 81 mg daily. 6. [place] eye drops t.i.d. p.r.n. 7. Hydrocodone/acetaminophen 5/325 mg one every 6 hours p.r.n. 8. Rosuvastatin 5 mg daily. 9. Olopatadine 0.2% eye drops to right eye every 4 hours p.r.n. DISCHARGE DIAGNOSIS: Pneumonia with right pleural effusion. [id number]/[facility] #: [id number] [facility]
== END 2016-09-01 11:17 | disposition home or self-care (01) ==
LOC: ED 09:52 → MEDTELE 12:02
PROVIDERS: ADMIT Internal Medicine; ATTEND Internal Medicine
DX: J90 Pleural effusion, not elsewhere classified (principal); R55 Syncope and collapse; I25.10 Atherosclerotic heart disease of native coronary artery without angina pectoris; R06.02 Shortness of breath; I51.7 Cardiomegaly; Z79.899 Other long term (current) drug therapy
CPT/HCPCS: 36415; 71010; 71020; 76604; 80048; 80053; 82533; 82553; 83605; 83880; 84484; 85025; 86140; 87040; 87070; 87205; 87502; 93005; 93306; 94760; 96361; 96365; 96372; 99285; A9270-GY; C8929; G0378; J1650; J1956; Q9956

== ENCOUNTER 2016-09-06 12:40 | Inpatient (IN) | payer MEDICARE ==
[2016-09-06 13:50] LABS: Hematocrit 30 % (42-52); Hemoglobin 9.8 g/dl (14.0-18.0); Mean Corpuscular HGB Conc 33 g/dl (31-36); Mean Corpuscular Hemoglobin 30 pg (27-31); Mean Corpuscular Volume 91 fL (80-94); Mean Platelet Volume 7 um3 (7.4-10.4); Red Blood Count 3.27 10^6/ul (4.0-5.4); Red Cell Distribution Width 14 % (10.5-15); White Blood Count 16.7 10^3/ul (3.5-10.8)
[2016-09-06 14:12] LABS: Albumin 3.2 g/dL (3.2-5.2); BUN/Creatinine Ratio 16.4 (8-20); Calcium 8.5 mg/dL (8.6-10.3); EGFR African American 82.8 (>60); EGFR Non-African American 64.4 (>60); Globulin 3.2 g/dL (2-4); Potassium 4.1 mmol/L (3.5-5.0); Total Bilirubin 1.8 mg/dL (0.2-1.0); Total Protein 6.4 g/dL (6.4-8.9)
--- NOTE | 2016-09-06 14:28 | RAD ---
Indication: Right-sided chest mass. CT of the chest, abdomen and pelvis was performed without oral or IV contrast. Coronal and sagittal reconstructed images were obtained. Inferior thyroid lobes are unremarkable. Precarinal lymphadenopathy is noted measuring up to 11 mm. No hilar adenopathy is noted. Heart is of normal size without evidence of pericardial effusion. The changes image bronchi are patent. There is a moderate size right pleural effusion. There is likely compressive atelectasis of the right lower lobe. In addition deep to the latissimus muscle is a low density fluid collection measuring 13 cm in length x 9.8 cm AP x 3.4 cm in width. More anteriorly the chest surrounding the anterior cartilage of the right sixth and seventh rib is also low density fluid consistent with an evolving hematoma. No definite rib fracture is identified however. The liver is normal in size. No focal lesions or intrahepatic ductal dilatation is noted. The gallbladder demonstrates no calcified gallstones. No pericholecystic fluid or wall thickening is identified. The spleen is normal in size. Old granulomatous disease is noted. The pancreas demonstrates no mass or pancreatic ductal dilatation. Common duct is not dilated. No adrenal lesions are noted. The kidneys demonstrate no hydronephrosis. Large calculi are noted in the mid and lower pole of the right kidney. The largest of these measures up to 18 mm in the right renal pelvis, 10 mm and lower pole of the right kidney and 6 mm in the upper pole of the right kidney. Calculi in the lower pole of the left kidney measures up to 8 mm. No hydroureter or obstructive uropathy is noted. No retroperitoneal lymphadenopathy is noted. No dilated loops of bowel are noted. The prostate is enlarged. No hernias are noted. The prostate is markedly enlarged. The urinary bladder is moderately distended. IMPRESSION: THERE IS A MODERATE TO LARGE RIGHT-SIDED PLEURAL EFFUSION. DEEP TO THE LATISSIMUS DORSI MUSCLE THERE IS A FLUID COLLECTION PRESUMABLY HEMATOMA IN THE CHEST WALL DESCRIBED ABOVE MEASURING 13 X 9.8 X 3.4 CM. ADDITIONALLY INFILTRATION OF FAT IS NOTED ALONG THE RIGHT CHEST AND ABDOMINAL WALL CONSISTENT WITH HEMATOMA. NO OBVIOUS RIB FRACTURES ARE IDENTIFIED. ADDITIONAL FLUID IS NOTED AROUND THE CARTILAGE OF THE RIGHT SIXTH AND SEVENTH RIB. THIS IS CONSISTENT WITH HEMATOMA. NO HYDRONEPHROSIS IS NOTED ALTHOUGH BILATERAL RENAL CALCULI ARE PRESENT.
[2016-09-06] MEDS ORDERED: Ondansetron INJ* 2 MG/ML VIAL IV PRN (15:35)
[2016-09-06] MEDS ORDERED: Benzonatate CAP* 100 MG PO PRN (15:39)
[2016-09-06] MEDS ORDERED: NS 0.9% 1000 ML* 1,000 ML IV SCH (15:45)
[2016-09-06] MEDS: Acetaminophen TAB* 325 MG PO PRN ×2 (16:10→20:11)
[2016-09-06] MEDS: Levofloxacin 750 MG IVPREMIX(* 750 MG/150 ML BAG IVPB SCH (17:38)
[2016-09-06 18:36] LABS: Hematocrit 27 % (42-52); Hemoglobin 8.8 g/dl (14.0-18.0)
--- NOTE | 2016-09-06 21:06 | HP ---
HISTORY AND PHYSICAL: DATE OF ADMISSION: 09/06/16 PRIMARY CARE PROVIDER: Dr. Post. ATTENDING PHYSICIAN WHILE IN THE HOSPITAL: Dr. Perez Brothers* (dictated by Michele Johnson NP). CONSULTING SURGEON: Dr. Ferreira. CONSULTING WAX POURER: Dr. Cerna. CHIEF COMPLAINT: 1. Bruising. 2. Cough. HISTORY OF PRESENT ILLNESS: Mr. Demarco is an 80-year-old male patient. He has a history of coronary artery disease, hyperlipidemia, chronic bronchitis, and nephrolithiasis. He recently was admitted here on the 31 of August for a presumed pneumonia with a parapneumonic effusion. He said that prior to this, he had been having a cough for 7 to 10 days bringing up mucopurulent-type sputum and feeling short of breath. He came in on the because he had an episode where he felt very short of breath particularly after exerting himself, which was new for him. He sat down and he slumped over on the table. His noticed him and was concerned because he appeared to be tired and she asked him if he wanted to go to bed. She stood him up and while standing him up, he said he felt he was going to faint. She slowly lowered him to the ground. He landed on his right side and he passed out and she immediately called 911. He was brought into the hospital where he found to have pneumonia with parapneumonic effusion. He received 24 hours of antibiotics, IV fluids, had significant improvement, and was discharged. However, it was noticed at the time of discharge, he has had progressive worsening bruising and he has had progressive worsening pain, particularly on the right side when he takes a deep breath. The noticed a couple of days ago, about 3 days ago, she was massaging his right chest wall to help with the pain and she noticed a lump there. Over the last couple of days, he has had progressive worsening ecchymosis on the right chest wall, it was extending down across his abdomen, across his lower back, and down into his groin. He went yesterday for routine followup with Dr. Post. She was concerned. She susie out an H and H, CBC. Today, the results were reported. They noted his H and H had dropped from 13. His hemoglobin went from 13 to 9.8. In addition to this, he also had an elevation of his white count. Yesterday, the patient does state that he still spiked a fever of 102. He still has been coughing, not as much, but he has been bringing up some yellow sputum at times. He is not having anymore shortness of breath, but they were concerned, particularly with the change in the labs and so was Dr. Post. The patient was sent to the hospital to be evaluated. He is denying any chest pain now with the exception that when he takes a deep breath, that hurts. He says he does not feel lightheaded, he does not feel like he is going to faint. He says he has not been taking any blood thinners. He has been avoiding the aspirin. He has been off it for the last month. He came in. He was noted to have again the white count going up and extensive hematoma. He had a CT of the chest, abdomen, and pelvis, which showed the hematoma extending down into the pelvis, also having moderate-to- large right-sided pleural effusion which has increased from previous chest x- ray and because of this, the hospitalist service was asked to evaluate for consult. He denied having any diarrhea, any abdominal pain, or any vomiting. PAST MEDICAL HISTORY: Significant for: 1. Coronary artery disease. 2. Hyperlipidemia. 3. Chronic bronchitis. 4. Nephrolithiasis. PAST SURGICAL HISTORY: He has had: 1. CABG. 2. Kidney stone extraction. MEDICATIONS: The home meds according to the patient's list include: 1. Crestor 5 mg daily. 2. eye drops 0.6% both eyes t.i.d. as needed. 3. [place] 1 tablet p.o. every 3 hours as needed 5/325. 4. [place] 0.2% ophthalmic every 4 hours as needed. 5. Singulair 10 mg daily. 6. Levaquin 250 mg daily. 7. ProAir 2 puffs inhaled every 6 hours as needed. 8. Tessalon Perles 200 mg p.o. t.i.d. as needed. ALLERGIES TO MEDICATIONS: Include no known drug allergies. FAMILY HISTORY: His mother at age 96. She had a stroke. Father had a history of bladder cancer. SOCIAL HISTORY: He does not smoke. He does not drink. Surrogate decision maker is his and his daughter. REVIEW OF SYSTEMS: There is a documented fever of 102. He has a fever of 101 here today. He denies having any significant weight change. Denies having any double vision. No ear discharge. There is no rhinorrhea. There is no sore throat. No thyroid enlargement. He denies having any chest pain, only exception when he takes a deep breath. Denies any shortness of breath. Denies having any orthopnea. Denies any nocturnal dyspnea. Denies abdominal pain. No nausea, no vomiting. No dysuria, no frequency. There is no loss of consciousness today. Review of 14 systems completed, all others negative. PHYSICAL EXAMINATION GENERAL: At this time, Mr. Demarco is an 80-year-old male patient. He is sitting in the ER stretcher. He does not appear to be in any acute distress. VITAL SIGNS: Reveal blood pressure 131/68, pulse 90, respirations 20, O2 sat 93 % on room air, and temperature 101.1. HEENT: Head: Atraumatic and normocephalic. Eyes: EOMs are intact. Sclerae anicteric and not pale. Throat: Oral mucosa appears to be moist. No oropharyngeal erythema. NECK: Supple. LUNGS: Diminished in the right base. He had equal diaphragmatic expansion. They were clear on the left side. HEART: Sounds S1, S2. Regular rate and rhythm. No murmurs, rubs, or gallops. ABDOMEN: Soft, flat, and nontender. Bowel sounds present. EXTREMITIES: Pulses were 2+ throughout. He was able to move all 4 extremities with 5/5 strength. No peripheral edema. NEUROLOGIC: He is awake, alert, and oriented x3. Tongue midline. [employer] were equal. No gross focal deficits. SKIN: He has extensive hematoma starting from about the right fifth, sixth rib extending down the right side along his right flank, down to his abdomen, crossing the abdomen to the left side, and having more ecchymosis along his back from the right to the left and then ecchymosis extending down into his pelvis and groin area to the testicles and penis. No open areas were noted. DIAGNOSTIC STUDIES/LAB DATA: His labs today revealed WBC of 16.7 up from 14 at discharge, hemoglobin 9.8 down from 13 at admission last time he was here, hematocrit of 30, platelet count of 456. INR 1.21, PTT of 29.2. Sodium 135, potassium 4.1, chloride of 102, bicarb 27, BUN 18, creatinine 1.10, glucose 97, lactate 1.4, calcium 8.5. Total bili 1.8, AST 47, ALT 33, alk phos 70. CK 213 , CK- MB 3.1. Troponin 0. Albumin of 3.2. He had a CT of the chest, abdomen, and pelvis today which revealed, impression: There is a [id number] right-sided pleural effusion. Deep to the latissimus dorsi muscle, there is a fluid collection, presumably hematoma in the chest wall as described above measuring 13 x 9.8 x 3.4 cm distally. Infiltration of the fat is noted along the right chest and abdominal wall consistent with hematoma. No obvious rib fractures are identified. Additional fluid noted around the cartilage of the right sixth and seventh rib, this is consistent with hematoma. No hydronephrosis is noted, although bilateral renal calculi were present. He did have an EKG obtained today as well which revealed normal sinus rhythm, rate of 89. No ST elevations or T-wave inversions were noted. It was reviewed to the previous EKG, it is similar. Old medical records were reviewed. ASSESSMENT AND PLAN: Mr. Demarco is an 80-year-old male patient coming in to the ER today with complaints of worsening ecchymosis. In addition to this, falling H and H, found to have an increasing WBC count. Hospitalist service was asked to evaluate after it was noted on CT scan he had a large hematoma, in addition to this increasing pleural effusion. He will be admitted under inpatient status for: 1. Pleural effusion: Again, at this point, with his history, certainly this could be a pneumonia with parapneumonic effusion still; however, I do think that it is warranted at this point, because it has increased in size to go ahead and try to tap this for diagnostic purposes, which I have set up with IR either via ultrasound guidance or CT guidance and I would like to send this off for cell count, cultures, LDH, and protein, and pH as well. For the time being , I will put him on Levaquin, but I will put him on pulmonary dose of 750 mg IV daily for the time being and I will continue to follow. 2. Hematoma: At this point, I did touch base with Surgery. They recommended at this point to observe, follow the H and H, and this should reabsorb on its own. However, it is a fairly significant hematoma in the setting of no major trauma. So, I am going to get Oncology involved to make sure that there is not any propensity to bleeding in this patient and possibly send off factor studies and Dr. Cerna will consult for us. 3. Coronary artery disease: Continue with statin therapy. For the time being , hold his aspirin and also follow. 4. Nephrolithiasis: He can follow with his primary. 5. Chronic bronchitis: Continue Singulair. 6. Hyperlipidemia: Continue statin therapy. 7. DVT prophylaxis: He will be placed on SCDs. 8. Code status: Full code. 9. Fluids, electrolytes, and nutrition: He can have a heart healthy diet and n.p.o. after midnight. TIME SPENT: On the admission was 90 minutes; greater than half the time was spent [id number] with the patient obtaining my history and physical, other half the time spent going over the plan of care with the patient and implementing plan of care. I did discuss the plan of care with my attending, Dr. Brothers; he is in agreement. MICHELE JOHNSON NP CC: Dr. Post; Dr. Cerna; Dr. Ferreira* [id number]/[facility] #: [id number] [facility]
--- NOTE | 2016-09-06 21:09 | ED ---
Lily Collazo Anna, scribed for Ndubuisi,Pablo Patton MD on 09/06/16 at 1302 . Complex/Multi-Sys Presentation - HPI Summary HPI Summary: Patient is an 80 y/o male coming to [facility] presenting with right-sided rib pain that began six days ago. He describes the severity of the pain as 5/10. He denies SOB but does feel uncomfortable when he breathes. He had one episode of syncope in the XR room at [facility] six days ago and was admitted and d/kelly after that episode. He denies hitting his head or chest. He has bruising that has spread throughout his thoracic area. After discharge, he reports worsening of the bleeding to his abd and groin. He saw his PCP Dr. Post today who referred him to ED for further evaluation. Denies nausea or emesis. He is currently taking Levofloxacin for his PNA and is on day 6/7. He has a history of CAD, CABG , HLD, chronic bronchitis. He takes Crestor, baby Aspirin, and Singulair daily at baseline, but he stopped taking the Aspirin before his admission. Denies a history of HTN, renal disease, DM. - History Of Current Complaint Chief Complaint: EDShortnessOfBreath Time Seen by Provider: 09/06/16 12:54 Hx Obtained From: Patient, Family/Records Assistant - Accompanied by Onset/Duration: Lasting Days, Still Present Timing: Constant Severity Currently: Moderate - 5/10 Severity Initially: Moderate Location: Pain At: - right-sided rib pain - Allergies/Home Medications Allergies/Adverse Reactions: Allergies Allergy/AdvReac Type Severity Reaction Status Date / Time No Known Allergies Allergy Verified 08/31/16 10:38 PMH/Surg Hx/FS Hx/Imm Hx Cardiovascular History: Reports: Hx Coronary Artery Disease, Hx Hypercholesterolemia Denies: Hx Hypertension Respiratory History: Reports: Hx Chronic Bronchitis, Hx Pneumonia History: Reports: Hx Kidney Stones Sensory History: Denies: Hx Contacts or Glasses, Hx Hearing Aid Opthamlomology History: Denies: Hx Contacts or Glasses - Surgical History Surgery Procedure, Year, and Place: CABG x3, lithotripsy, cystoscopy Infectious Disease History: Reports: History Other Infectious Disease - viral conjunctivitis per dr. gaffney Denies: Traveled Outside the [place] in Last 30 Days - Family History Known Family History: Negative: Cardiac Disease, Hypertension, Diabetes - Social History Occupation: Retired Lives: With Family Alcohol Use: None Hx Substance Use: No Substance Use Type: Reports: None Hx Tobacco Use: No Smoking Status (MU): Never Smoked Tobacco Review of Systems Constitutional: Other - decreased of appetite Positive: Fever, Fatigue Positive: Cough. Negative: Shortness Of Breath Negative: Vomiting, Nausea Positive: Arthralgia, Edema - bilateral LE chronic Positive: Bruising Positive: Syncope Positive: Depressed All Other Systems Reviewed And Are Negative: Yes Physical Exam Triage Information Reviewed: Yes Vital Signs On Initial Exam: Initial Vitals Temp Pulse Resp BP Pulse Ox 97.5 F 107 20 149/56 95 09/06/16 12:41 09/06/16 12:41 09/06/16 12:41 09/06/16 12:41 09/06/16 12:41 Vital Signs Reviewed: Yes Appearance: Positive: Well-Appearing - Not toxic, No Pain Distress, Well- Nourished Skin: Positive: Warm, Skin Color Reflects Adequate Perfusion, Dry, Pale - Generalized pallor, Other - Extensive subcutaneous hematoma extending from right mid-chest and anteriorally over the abdomen down into the perineum, involving penis and scrotum and wrapping around back to lower back. Head/Face: Positive: Normal Head/Face Inspection Eyes: Positive: EOMI, RADHA, Other: - Some conjunctival pallor ENT: Positive: Pharynx normal, TMs normal Neck: Positive: Supple, Nontender Respiratory/Lung Sounds: Positive: Clear to Auscultation, Breath Sounds Present. Negative: Rales, Rhonchi, Wheezes Cardiovascular: Positive: RRR. Negative: Murmur, Rub Abdomen Description: Positive: Nontender, No Organomegaly, Soft. Negative: Distended, Guarding, Peritoneal Signs Bowel Sounds: Positive: Present Musculoskeletal: Positive: Other - Chest wall musculoskeletal: On chest wall, some tenderness to anterior lower ribs on right side. Neurological: Positive: Sensory/Motor Intact, Alert, Oriented to Person Place, Time, Normal Gait. Negative: Cerebellar Dysfunction Psychiatric: Positive: Affect/Mood Appropriate Diagnostics - Vital Signs Vital Signs Temp Pulse Resp BP Pulse Ox 09/06/16 12:41 97.5 F 107 20 149/56 95 - Laboratory Lab Results: Lab Results 04/18/17 04/18/17 04/18/17 Range/Units 13:35 13:35 13:35 WBC 16.7 H (3.5-10.8) 10^3/ul RBC 3.27 L (4.0-5.4) 10^6/ul Hgb 9.8 L (14.0-18.0) g/dl Hct 30 L (42-52) % MCV 91 (80-94) fL MCH 30 (27-31) pg MCHC 33 (31-36) g/dl RDW 14 (10.5-15) % Plt Count 456 H D (150-450) 10^3/ul MPV 7 L (7.4-10.4) um3 Neut % (Auto) 80.3 (38-83) % Lymph % (Auto) 8.4 L (25-47) % Coryell % (Auto) 8.9 (1-9) % Eos % (Auto) 2.1 (0-6) % Baso % (Auto) 0.3 (0-2) % Absolute Neuts (auto) 13.4 H (1.5-7.7) 10^3/ul Absolute Lymphs (auto) 1.4 (1.0-4.8) 10^3/ul Absolute Monos (auto) 1.5 H (0-0.8) 10^3/ul Absolute Eos (auto) 0.3 (0-0.6) 10^3/ul Absolute Basos (auto) 0.1 (0-0.2) 10^3/ul Absolute Nucleated RBC 0.01 10^3/ul Nucleated RBC % 0 INR (Anticoag Therapy) 1.21 H (0.89-1.11) APTT 29.2 (26.0-36.3) seconds Sodium 135 (133-145) mmol/L Potassium 4.1 (3.5-5.0) mmol/L Chloride 102 (101-111) mmol/L Carbon Dioxide 27 (22-32) mmol/L Anion Gap 6 (2-11) mmol/L BUN 18 (6-24) mg/dL Creatinine 1.10 (0.67-1.17) mg/dL Est GFR ( Amer) 82.8 (>60) Est GFR (Non-Af Amer) 64.4 (>60) BUN/Creatinine Ratio 16.4 (8-20) Glucose 97 (70-100) mg/dL Lactic Acid (0.5-2.0) mmol/L Calcium 8.5 L (8.6-10.3) mg/dL Total Bilirubin 1.80 H (0.2-1.0) mg/dL AST 47 H (13-39) U/L ALT 33 (7-52) U/L Alkaline Phosphatase 70 (34-104) U/L Total Creatine Kinase 213 (10-223) U/L CK-MB (CK-2) 3.1 (0.6-6.3) ng/mL Troponin I 0.00 (<0.04) ng/mL B-Natriuretic Peptide ( - 100) pg/mL Total Protein 6.4 (6.4-8.9) g/dL Albumin 3.2 (3.2-5.2) g/dL Globulin 3.2 (2-4) g/dL Albumin/Globulin Ratio 1.0 (1-3) 09/06/16 09/06/16 Range/Units 13:35 13:35 WBC (3.5-10.8) 10^3/ul RBC (4.0-5.4) 10^6/ul Hgb (14.0-18.0) g/dl Hct (42-52) % MCV (80-94) fL MCH (27-31) pg MCHC (31-36) g/dl RDW (10.5-15) % Plt Count (150-450) 10^3/ul MPV (7.4-10.4) um3 Neut % (Auto) (38-83) % Lymph % (Auto) (25-47) % Coryell % (Auto) (1-9) % Eos % (Auto) (0-6) % Baso % (Auto) (0-2) % Absolute Neuts (auto) (1.5-7.7) 10^3/ul Absolute Lymphs (auto) (1.0-4.8) 10^3/ul Absolute Monos (auto) (0-0.8) 10^3/ul Absolute Eos (auto) (0-0.6) 10^3/ul Absolute Basos (auto) (0-0.2) 10^3/ul Absolute Nucleated RBC 10^3/ul Nucleated RBC % INR (Anticoag Therapy) (0.89-1.11) APTT (26.0-36.3) seconds Sodium (133-145) mmol/L Potassium (3.5-5.0) mmol/L Chloride (101-111) mmol/L Carbon Dioxide (22-32) mmol/L Anion Gap (2-11) mmol/L BUN (6-24) mg/dL Creatinine (0.67-1.17) mg/dL Est GFR ( Amer) (>60) Est GFR (Non-Af Amer) (>60) BUN/Creatinine Ratio (8-20) Glucose (70-100) mg/dL Lactic Acid 1.4 (0.5-2.0) mmol/L Calcium (8.6-10.3) mg/dL Total Bilirubin (0.2-1.0) mg/dL AST (13-39) U/L ALT (7-52) U/L Alkaline Phosphatase (34-104) U/L Total Creatine Kinase (10-223) U/L CK-MB (CK-2) (0.6-6.3) ng/mL Troponin I (<0.04) ng/mL B-Natriuretic Peptide 68 ( - 100) pg/mL Total Protein (6.4-8.9) g/dL Albumin (3.2-5.2) g/dL Globulin (2-4) g/dL Albumin/Globulin Ratio (1-3) Result Diagrams: 09/06/16 18:30 09/06/16 13:35 Lab Statement: Any lab studies that have been ordered have been reviewed, and results considered in the medical decision making process. - CT CT abd/pel CT Interpretation: Positive (See Comments) CT Interpretation Completed By: Radiologist - IMPRESSION: THERE IS A MODERATE TO LARGE RIGHT-SIDED PLEURAL EFFUSION. DEEP TO THE LATISSIMUS DORSI MUSCLE THERE IS A FLUID COLLECTION PRESUMABLY HEMATOMA IN THE CHEST WALL DESCRIBED ABOVE MEASURING 13 X 9.8 X 3.4 CM. ADDITIONALLY INFILTRATION OF FAT IS NOTED ALONG THE RIGHT CHEST AND ABDOMINAL WALL CONSISTENT WITH HEMATOMA. NO OBVIOUS RIB FRACTURES ARE IDENTIFIED. ADDITIONAL FLUID IS NOTED AROUND THE CARTILAGE OF THE RIGHT SIXTH AND SEVENTH RIB. THIS IS CONSISTENT WITH HEMATOMA. NO HYDRONEPHROSIS IS NOTED ALTHOUGH BILATERAL RENAL CALCULI ARE PRESENT. - EKG 1250 Cardiac Rate: NL - 89 bpm EKG Rhythm: Sinus Rhythm EKG Interpretation: T-wave inversion V1, V2. T-wave flattening V3.No acute ischemic changes. Complex Multi-Symp Course/Dx Assessment/Plan: Patient is an 80 y/o male coming to [facility] presenting with right -sided rib pain that began six days ago. He describes the severity of the pain as 5/10. He denies SOB but does feel uncomfortable when he breathes. He had one episode of syncope in the XR room at [facility] six days ago. He denies hitting his head or chest. He has been waking up in the night and walking around to try to alleviate the pain. He has ecchymosis that has spread throughout his thoracic area and into his groin. He came to [facility] six days ago and was discharged after one day. At that time, he had little bruising and was diagnosed with PNA. He had pain and was coughing vigorously at that time. He felt a snap. After discharge, he had subcutaneous bleeding. He saw his PCP Dr. Post today. He was anemic while he was in the hospital along with a high WBC count, both of which Dr. Post reported were more severe today. He had an intermittent fevers throughout his PNA, 102 F yesterday, 97.5 F today at triage. He has lost his appetite and reports a change in his taste buds. He has bilateral LE edema. He is normally quite active but is feeling fatigued and depressed as a result of his recent pain. Denies nausea or emesis. He is currently taking Levofloxacin for his PNA and has one dose left to take. He has a history of CAD, CABG, HLD, chronic bronchitis. He takes Crestor, baby Aspirin, and Singulair daily at baseline, but he stopped taking the Aspirin before his admission. Denies a history of HTN, renal disease, DM. NKDA but when he had surgery for his nephrolithiasis he had unexplained pruritic ecchymosis in his groin area. The pruritic area peeled off at that time. His suspects an allergy to the antiseptic used for the surgery. EKG reveals NSR at 89 bpm with t-wave inversion in V1 and V2, T-wave flattening in V3, and no acute ischemic changes. CT reveals moderate to large right-sided pleural effusion, infiltration of fath along right chest and abd wall. No fractures. Labs reveal WBC of 16.7, Plt count of 456, INR of 1.21, bilirubin of 1.80, AST of 47. Dr. Brothers ( hospitalist) at 1439. Agrees to accept patient for admission. - Diagnoses Provider Diagnoses: PNA (pneumonia), Anemia, subcutaneous hematoma of chest and abd - Physician Notifications Discussed Care Of Patient With: Dr. Brothers (hospitalist) at 1439. Agrees to accept patient for admission. Discharge - Discharge Plan Condition: Stable Disposition: ADMITTED TO [facility] documentation as recorded by the Lily valencia Anna accurately reflects the service I personally performed and the decisions made by Elvia baldwin Afoma Frances, MD.
[2016-09-07 01:39] LABS: Hematocrit 31 % (42-52); Hemoglobin 9.7 g/dl (14.0-18.0)
[2016-09-07 05:06] LABS: Hematocrit 29 % (42-52); Hemoglobin 9.4 g/dl (14.0-18.0); Mean Corpuscular HGB Conc 33 g/dl (31-36); Mean Corpuscular Hemoglobin 30 pg (27-31); Mean Corpuscular Volume 90 fL (80-94); Mean Platelet Volume 7 um3 (7.4-10.4); Red Blood Count 3.17 10^6/ul (4.0-5.4); Red Cell Distribution Width 14 % (10.5-15); White Blood Count 14.6 10^3/ul (3.5-10.8)
[2016-09-07 05:10] LABS: Add Diff/Slide Review? Slide Review Added; Comments Flag Yes
[2016-09-07 05:19] LABS: BUN/Creatinine Ratio 18.5 (8-20); Calcium 8.1 mg/dL (8.6-10.3); EGFR African American 101.8 (>60); EGFR Non-African American 79.2 (>60); Potassium 3.9 mmol/L (3.5-5.0)
[2016-09-07] MEDS ORDERED: Influenza VAC *QUAD* 2016-17* 0.5 ML SYRINGE IM ONE (09:00)
[2016-09-07] MEDS ORDERED: Vancomycin per Pharmacy* NOTE FOLLOW UP PRN (11:00)
[2016-09-07] MEDS: Atorvastatin* 10 MG TAB PO SCH ×2 (11:04→12:51)
[2016-09-07] MEDS ORDERED: Vancomycin(*) 1,250 MG in NS 0.9% 250 ML* 250 ML IVPB ONE (12:00)
--- NOTE | 2016-09-07 12:36 | PN ---
Progress Note - Progress Note Note: Brief Surgical Note (full note dictated): S: 80 yo male we were asked to see re: R chest hematoma and R pleural effusion. Hx reviewed. At present, no pain unless he takes a deep breath or if chest wall is palpated. No dyspnea at rest. O: tmax 101, decreasing since Heart: reg Lungs: decreased BS a Right base (almost 1/2 way up); upper fernández and L side are clear Chest: extensive ecchymosis over R chest wall, extending to back, abd, and scrotum. There are two palpable soft masses c/w hematoma, one located laterally which is relatively nontender, the other anteriorly, which is moderately tender. Labs: H&H stable after initial drop A/P: 1. Right chest wall hematoma (x 2, though may have all originated from the anterior location, then tracked under the latissimus where it also collected). This would account for the drop in Hgb. The question is whether he had sufficient trauma to explain the extent of the hematoma. Dr. Cerna was also in to see him and felt that it was unlikely he has a bleeding disorder, pending further w/u. From our point of view, both hematomas can be treated conservatively, i.e., no surgical intervention. 2. probable parapneumonic effusion; possible empyema. Will await results of IR drainage and follow closely. He understands the potential need for chest tube and/or other surgical interventions.
[2016-09-07] MEDS: Cefepime(*) 1 GM in NS 0.9% 50 ML* 50 ML IVPB SCH ×2 (12:50→23:04)
[2016-09-07] MEDS: Montelukast Sodium TAB* 10 MG PO SCH (12:51)
[2016-09-07 14:10] LABS: Body Fluid WBC 2249 /mcL
[2016-09-07 14:26] LABS: Body Fluid Appearance Bloody; Body Fluid Total Cells Counted 100
--- NOTE | 2016-09-07 14:47 | RAD ---
INDICATION: Hemothorax, follow-up. COMPARISON: Comparison is made with a prior CT of the chest from September 06, 2016. TECHNIQUE: A CT scan of the chest was performed without intravenous contrast. Contiguous axial sections were obtained from the lung apices through the lung bases. Images were reconstructed in the coronal and sagittal planes. FINDINGS: There is a moderate size right pleural effusion and a dependent infiltrate in the right lower lobe with air bronchograms. These findings are unchanged significantly from the prior study. There is minimal atelectasis present dependently in the left lower lobe. Again note is made of a fluid collection in the right lateral chest wall deep to the serratus anterior and latissimus dorsi muscles. This measures approximately 7.5 x 3.3 cm in size and previously measured approximately 10.0 x 3.7 cm in size. There is also a soft tissue density mass present centered roughly between the anterolateral right sixth and seventh ribs. This has increased in slightly size and currently measures approximately 8.2 x 4.0 cm in size and previously measured 6.0 x 4.0 cm in size. This is minimally hyperdense relative to the adjacent muscles. The change in size would favor a hematoma. There is a mildly prominent precarinal lymph node measuring 1.0 cm in transverse dimension. No other enlarged mediastinal or hilar lymph nodes are seen. The heart is within normal limits in size. No pericardial effusion is present. The thoracic aorta is normal in caliber. There is mild calcific plaque present. Note is made of small calcifications within the spleen suggestive of old granulomatous disease. No fracture or significant focal osseous abnormality is seen. The patient is status post sternotomy. IMPRESSION: 1. MODERATE SIZE RIGHT PLEURAL EFFUSION AND DEPENDENT RIGHT LOWER LOBE INFILTRATE, UNCHANGED. 2. FLUID COLLECTION IN THE RIGHT LATERAL CHEST WALL DECREASED IN SIZE. 3. SOFT TISSUE DENSITY MASS PRESENT ADJACENT TO THE ANTEROLATERAL RIGHT SIXTH AND SEVENTH RIBS SLIGHTLY INCREASED IN SIZE FAVORING A HEMATOMA. RECOMMEND FOLLOW-UP TO RESOLUTION.
--- NOTE | 2016-09-07 15:40 | PN ---
Subjective Date of Service: 09/07/16 Interval History: HOSPITALIST PROGRESS NOTE Patient seen and examined at bedside. He feels better today. Pain and cough are less intense, he denies dyspnea. Family History: Unchanged from Admission Social History: Unchanged from Admission Past Medical History: Unchanged from Admission Objective Active Medications: Acetaminophen (Tylenol Tab*) 650 mg PO Q4H PRN PRN Reason: FEVER/PAIN Last Admin: 09/06/16 20:11 Dose: 650 mg Hydrocodone Bitart/Acetaminophen (Bethany 5-325 Tab*) 1 tab PO Q3H PRN PRN Reason: PAIN - MODERATE Atorvastatin Calcium (Lipitor*) 10 mg PO DAILY [facility] Last Admin: 09/07/16 12:51 Dose: 10 mg Benzonatate (Tessalon Cap*) 200 mg PO TID PRN PRN Reason: COUGH Levofloxacin/Dextrose (Levaquin 750 Mg Ivpremix(*)) 750 mg in 150 mls @ 100 mls /hr IVPB Q24H [facility] Last Admin: 09/06/16 17:38 Dose: 100 mls/hr Cefepime HCl 1 gm/ Sodium (Chloride) 50 mls @ 100 mls/hr IVPB Q12H [facility] Last Admin: 09/07/16 12:50 Dose: 100 mls/hr Vancomycin HCl 1,000 mg/ (Sodium Chloride) 250 mls @ 166.667 mls/hr IVPB Q12H [facility] Montelukast Sodium (Singulair Tab*) 10 mg PO DAILY [facility] Last Admin: 09/07/16 12:51 Dose: 10 mg Ondansetron HCl (Zofran Inj*) 4 mg IV Q6H PRN PRN Reason: NAUSEA Pharmacy Consult (Vancomycin Per Pharmacy*) 1 note FOLLOW UP . PRN PRN Reason: PER PROTOCOL Pharmacy Profile Note (Vancomycin Trough Check) 1 note FOLLOW UP .ENTER TIME ONE Stop: 09/09/16 12:31 Vital Signs 09/07/16 12:58 Temperature 99.3 F Pulse Rate 116 Respiratory 24 Rate Blood Pressure 137/68 (mmHg) O2 Sat by Pulse 96 Oximetry Oxygen Devices in Use Now: None Appearance: Pleasant elderly gentleman sitting up in a chair in NAD. Eyes: No Scleral Icterus Ears/Nose/Mouth/Throat: Mucous Membranes Moist Neck: Trachea Midline Respiratory: Symmetrical Chest Expansion and Respiratory Effort, - - BS+ bilaterally decreased on right base Cardiovascular: RRR - Normal S1 and S2 Abdominal: NL Sounds; No Tenderness; No Distention Skin: - - Large ecchymosis extending from right chest wall around his back to right buttock and anteriorly to his abdominal wall all the way down to his genital area Neurological: Alert and Oriented x 3, NL Muscle Strength and Tone Lines/Tubes/Other Access: Clean, Dry and Intact Peripheral IV Nutrition: Taking PO's Result Diagrams: 09/07/16 04:57 09/07/16 04:57 Assess/Plan/Problems-Billing Assessment: Mr. Demarco is an 80yo M with PMH of CAD, HLD, chronic bronchitis, who presented to ED with c/o bruising and cough, found to have a large right chest wall hematoma and worsening pleural effusion. - Patient Problems (1) Pneumonia Comment: - D/w Dr. Mcclain - will broaden antibiotic coverage with Vanco and Cefepime. - Follow cultures. (2) Pleural effusion, right Comment: - Thoracentesis drained 900ml of bloody fluid - awaiting cytology. - No significant trauma history. - Suspect he ruptured an intercostal blood vessel due to significant cough, causing his effusion and hematoma. - Will repeat CT chest after thoracentesis. - Surgery follow up for chest tube placement. (3) Hematoma Comment: - Patient stopped aspirin >1 month ago. - No significant local trauma. - Hematology input appreciated. (4) DVT prophylaxis Comment: - Pharmacological prophylaxis contraindicated in the setting of bleeding. - SCDs. (5) Full code status Status and Disposition: Inpatient.
[2016-09-07] MEDS: Levofloxacin 750 MG IVPREMIX(* 750 MG/150 ML BAG IVPB SCH (16:26)
--- NOTE | 2016-09-07 18:03 | RAD ---
CPT II Codes: 6100F INDICATION: Right-sided pleural effusion after minor traumatic injury. COMPARISON: CT of the chest September 07, 2016 PROCEDURE NOTE AND IMAGING FINDINGS: The benefits of the and risks of procedure explained to the patient. The patient consented of the exam. The patient was brought to the ultrasound suite and multiple images of the right hemithorax were obtained. There was a moderate pleural effusion present with echogenic debris and septations. The site was marked. A formal time out was performed before beginning the procedure. The patient was prepped and draped in the usual sterile fashion. The patient?s posterior chest wall was anesthetized with 1% lidocaine. A small skin anahi was made to allow placement of the thoracentesis needle and catheter. Approximately 800 mL of blood-tinged serous fluid was aspirated. The sample was sent to the laboratory according to the request. The patient tolerated the procedure without incident. IMPRESSION: Uncomplicated thoracentesis as described in the body of the report.
--- NOTE | 2016-09-07 20:34 | CONS ---
SURGICAL CONSULT NOTE: DATE OF CONSULT: 09/07/16 ATTENDING SURGEON: Dr. Manuel Ferreira (JEROME Keating dictating). CHIEF COMPLAINT: 1. Right chest wall hematoma. 2. Right pleural effusion. HISTORY OF PRESENT ILLNESS: This is an 80-year-old male who was admitted on 05/07 after experiencing fever, cough, and generalized weakness associated with a syncopal episode. He apparently did pass out at home and went down on his right side, though this sounded like a controlled easing to the floor. He was treated overnight with IV antibiotics and hydration and discharged on oral antibiotics. He continued to have low-grade fevers, but up to 102 in the last day or two as well as pain in the right anterior chest with an associated palpable mass. He also felt generally weak and had noted development of ecchymosis across the right chest wall extending to the abdomen and back as well as to the groin and scrotum. He presented to his primary care office on Monday09/05/16. Lab work was ordered and he was then referred to the ED. He was found to have drop in his hemoglobin, though nothing dramatic from his day of discharge on 09/01/16. CT of the chest also showed moderately large right pleural effusion with associated atelectasis. The patient was seen in conjunction with Dr. Cerna and he is apparently not having much discomfort at this point unless he takes a deep breath or palpates the area of the hematoma in the anterior chest wall. He has undergone previous coronary artery bypass grafting and kidney stone extraction (per his current CT, he has multiple large stones on the right side and a smaller stone on the left side. There is no evidence of obstruction. The remainder of his history is as noted in his admission history and physical. PAST MEDICAL HISTORY: His past medical history was reviewed and includes coronary artery disease, nephrolithiasis, and hyperlipidemia. He normally does take aspirin daily, but has not over the past month or so. He has not had any prior episodes of similar bleeding and has never had any surgical problems with bleeding. CURRENT MEDICATIONS: His current medications at home include: 1. Crestor. 2. Singulair. 3. Levaquin. 4. ProAir. 5. Tessalon Perles. 6. Pat[place] as well as another nonspecified eyedrop. PHYSICAL EXAM: Height 5 feet 6 inches, weight 177 pounds, T-max 101 and this morning 98.3, blood pressure 143/68, pulse 86, respirations 16, room air saturation 94%. General: Well-nourished, well-developed male, in no acute distress. Skin: Warm and dry. He has extensive ecchymosis over the right chest extending to the abdomen, the back, the right groin, and right scrotum ( see also below for chest). Heart: Regular rate and rhythm. Lungs: Clear breath sounds on the left and upper field on the right. There are decreased breath sounds at the right base possibly as far up as fdc. No wheezes. Right chest is notable for 2 areas of soft tissue mass, one in the anterior chest where there is a visible and palpable mass consistent with hematoma. This was moderately tender to palpation. There is a separate soft mass in the area deep to the latissimus on the right side, which is minimally tender. Neither of the hematomas is tense nor with threatening skin changes. The abdomen is soft and nontender. Extremities are without significant edema. There are no areas of significant bruising apart from as described above. LABORATORY DATA: White blood cell count on admission 16,700, repeat this morning 14,600. Hemoglobin on admission 9.8 down from 10.2 on 09/01/16. This morning, his hemoglobin was 9.4, platelet count 456. INR was mildly elevated at 1.21 with repeat today 1.25. His PTT was normal. His electrolytes, BUN, and creatinine were normal. Bilirubin was mildly elevated at 1.8 versus normal 1 week ago. AST mildly elevated at 47. CT scan of the chest, abdomen, and pelvis is notable for moderate right pleural effusion with compressive atelectasis of the right lower lobe. The hematoma areas as noted in the physical exam correspond to collections felt to be consistent with hematoma, one in the anterior chest wall and the other laterally deep to the latissimus measuring 13 x 9.8 x 3.4 cm. Also noted were large calculi in the right kidney and smaller calculus in the left kidney without hydronephrosis. IMPRESSION: 1. Right chest wall hematoma (x2). It is conceivable that this was all related to hard coughing and/or his syncopal episode and resultant fall. Dr. Cerna will be checking some additional lab work to rule out any other bleeding dyscrasias though he lacks suspicious history for same. 2. Pleural effusion. PLAN: The plan is for interventional radiology thoracentesis. The patient understands that if this is a significant blood and/or empyema, he may require a chest tube for adequate drainage and we will follow closely if that is indicated. The case was discussed with Dr. Ferreira. At this point, he does not appear to be actively bleeding and therefore will be treated conservatively with expectation that these will resolve and reabsorb on their own. JEROME CAMACHO CC: Dr. Post* [id number]/[facility] #: [id number] PRIYANKA
--- NOTE | 2016-09-07 20:59 | CONS ---
PULMONARY CONSULTATION REPORT: DATE OF CONSULT: 09/07/16 CONSULTATION REQUESTED BY: Dr. Calvo. REASON FOR CONSULT: Evaluation of pleural effusion. HISTORY OF PRESENT ILLNESS: The patient is an 80-year-old male, nonsmoker, with history of coronary artery disease, status post CABG. The patient was brought in to the emergency room for evaluation of shortness of breath, cough, and wheezing. The patient was recently evaluated in Urgent Care on 08/31/16 for near syncope and cough. The patient was diagnosed with bronchitis and was discharged with antibiotics. The patient did not improve, his symptoms worsened and came in to the emergency room for further evaluation. The patient was admitted for 1 night from August 31 to September 01, improved, and was discharged with a diagnosis of pneumonia. The patient continued to have worsening shortness of breath and cough and presents for repeat evaluation. The patient was also noted to have increase in bruising on the right chest and cough. The patient was also febrile. The patient was also found to have drop in hematocrit. Further evaluation in the emergency room revealed moderate-to- large sized right pleural effusion. I have personally reviewed CT scan of the chest and chest x-rays. The patient noted to have moderate- to-large sized right pleural effusion with compressive atelectasis. The patient also noted to have prominent precarinal lymph node. The patient had ultrasound- guided thoracentesis performed today by IR with removal of 900 mL of pleural fluid. Fluid was found to be bloody. The patient reports slight improvement in breathing and cough since the procedure. He has not received blood transfusion. His hemoglobin has dropped from 10.2 on September 01 to 8.8 yesterday. The patient is also on O2 supplementation. The patient spiked a fever of 102 at home. The patient denies any trauma. The patient traveled to [place] recently and was sick with URI symptoms. His also has been sick with similar symptoms. The patient has a history of coronary artery disease, has not been on Plavix or other anticoagulants. The patient has been on aspirin , has not been taking aspirin for the past month. The patient denies diarrhea, abdominal pain, or vomiting. The patient reports significant cough and near syncope; however, denies any other trauma. Denies significant weight loss or loss of appetite recently. The patient was also noted to have elevated white count. Repeat CT chest after thoracentesis was also reviewed. The patient noted to have moderate effusion still after removal of close to a liter of hemorrhagic fluid. The patient was evaluated by Surgery. PAST MEDICAL HISTORY: 1. Coronary artery disease. 2. Hyperlipidemia. 3. Chronic bronchitis. 4. Nephrolithiasis. PAST SURGICAL HISTORY: 1. CABG. 2. Kidney stone extraction. MEDICATIONS: 1. Crestor. 2. Eye drops. 3. [place]. 4. Singulair. 5. Levaquin. 6. ProAir. 7. Tessalon Perles. ALLERGIES: No known drug allergies. FAMILY HISTORY: Mother at age of 96 with stroke. Father had history of bladder cancer. SOCIAL HISTORY: Does not smoke or drink alcohol. No drug abuse. REVIEW OF SYSTEMS: Positive for fever upon admission. All 14 systems reviewed and as per HPI. PHYSICAL EXAM: The patient in bed, in no apparent distress. Alert, awake, and oriented x3. Vital Signs: Temperature 99.3, pulse 116 beats per minute, respiratory rate 24 per minute, O2 sat 96% on 2 L, blood pressure 137/68. HEENT : Pupils equal, reactive to light. Mucous membranes moist. Neck: Supple. No JVD. Lungs: Diminished air entry on the right side. No wheeze or crackles. Cardiovascular: S1, S2 present. Regular. No murmurs, rubs, or gallops. Abdomen: Soft, nontender, nondistended. Bowel sounds present. Integumentary: The patient with bruising and pigmentation of the skin on the right chest, abdomen, bilaterally on the back, and down into the groin. Extremities: Normal range of motion. No edema. Neurologic: Alert, awake, and oriented x3. No focal deficits. DIAGNOSTIC STUDIES/LAB DATA: WBC count 14.6, hemoglobin 9.4, hematocrit 29, platelet count 418. Sodium 135, potassium 3.9, chloride 106, bicarb 24, BUN 17, creatinine 0.92, CRP elevated at 231. Pleural fluid analysis shows 2249 wbc's and large amounts of red cells with neutrophilia, no evidence of acute inflammatory process or malignancy. Cytology pending at this time. Chest x-ray and CT scan of the chest as described above in HPI. IMPRESSION AND RECOMMENDATIONS: 80-year-old male, nonsmoker, with no significant trauma, with hemothorax and chest wall hematoma with acute drop in H and H. Unclear etiology of hemothorax or chest wall hematoma. The patient had cough following recent upper respiratory infection, unclear if he had rupture of internal mammary or intercostal artery resulting in bleeding which seems to be significant given simultaneous effusion and chest wall hematoma without penetrating wound or trauma to the chest, no evidence of rib fracture. Fluid cytology is pending at this time. The patient did have residual fluid after removal with thoracentesis today. Surgery on the case, the patient to undergo definitive surgical management tomorrow. Thank you for allowing me to participate in the care of your patient. Will follow up with you. [id number]/[facility] #: [id number] PRIYANKA
--- NOTE | 2016-09-07 21:57 | CONS ---
MEDICAL ONCOLOGY/HEMATOLOGY CONSULTATION REPORT: DATE OF CONSULT: 09/07/16 REASON FOR CONSULTATION: Severe ecchymoses and question of bleeding disorder. HISTORY OF PRESENT ILLNESS: Mr. Demarco is an 80-year-old male who usually lives in [place], but is here visiting his daughter. He has approximately 2 -week history of a cough which was somewhat productive and became quite short of breath with this. This continued to worsen and on August 31, he had an episode where he became extremely short of breath after some mild exertion. He was at the table and he slumped down. His became concerned and tried to get him to go to bed. When she had him try to stand up, he felt extremely faint and she had to lower him to the ground. He subsequently passed out for a short period of time at which point, 911 was called and he was brought to the emergency room. She does not believe that he hit his chest. He does not remember hitting his chest at any point either. He did notice that even before this episode, he developed significant pain in the right anterior chest wall near the right nipple which was quite severe any time that he tried to cough. The pain in this area has continued. He was brought to the emergency room and was found to have pneumonia with a parapneumonic effusion. He received 24 hours of IV antibiotics, IV fluids, and felt significantly improved. At the time of that admission, his hemoglobin was 13.4. The following day, at the time of discharge, hemoglobin was 10.2 without having received a huge amount of hydration. Even by the time of discharge, it was noted he had significant ecchymoses on the right side of the chest. The patient continued to have significant problems with breathing. It was noted that the ecchymoses was extending down to a much larger area all the way down into his groin and across his back and abdomen. He was seen for routine followup by Dr. Post. He does not have primary care in this area until this visit as he does not live in the area and lives in [place]. Laboratory studies were obtained by Dr. Post on 09/05/16 and was found to have a hemoglobin of 9.4. It was suggested that he come to the emergency room and have a CT scan performed given the extent of the ecchymoses. He also spiked a fever to 102 and continued bringing up yellow sputum with his cough. On CT scan of the chest, abdomen, and pelvis, he was found to have a very large collection measuring 13 x 10 cm which appeared to be hematoma in the right chest wall. In addition, there was a second area measuring approximately 4 to 6 cm more anteriorly around the anterior cartilage of the right sixth and seventh ribs. This was a higher density than the low density fluid collection out laterally. When the patient was questioned, this higher more anterior area is where he initially had the pain and continued to have his most pain. CT scan otherwise reveals bilateral renal calculi. There is a moderate to large right-sided pleural effusion. No obvious infiltrates are noted at this time in the lungs. There is no significant adenopathy present. The pleural effusion appears to have increased in size at the time of the prior chest x-ray from the first admission. PAST MEDICAL HISTORY: 1. Coronary artery disease, status post CABG approximately 5 years ago. 2. Status post kidney stone extraction. 3. History of coronary artery disease. 4. History of hyperlipidemia. 5. History of kidney stones. MEDICATIONS: At home included: 1. Crestor 5 mg daily. 2. Eyedrops. 3. [place] 1 every 3 hours p.r.n. pain. 4. Singulair 10 mg daily. 5. Levaquin 250 mg daily. 6. ProAir 2 puffs q.6 hours p.r.n. 7. Tessalon Perles 20 mg t.i.d. p.r.n. ALLERGIES: None. FAMILY HISTORY: Father with bladder cancer. No other family history of malignancies or bleeding issues. SOCIAL HISTORY: The patient lives with his in [place]. Never been a smoker. Does not drink. 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 REVIEW OF SYSTEMS: Fever to 102. No shaking chills or drenching sweats. Ongoing cough and occasionally productive sputum with mild shortness of breath. Significant right-sided chest pain especially with deep breath or cough. Denies any abdominal pain or any pains in other locations including the back or bony complaints. No nausea or vomiting. No changes in bowel or bladder habits. No significant neurologic complaints. Review of systems is otherwise negative except as discussed above. PHYSICAL EXAM: An 80-year-old male in no acute distress. Vital Signs: Blood pressure 137/68, pulse 89, T-max 101. HEENT: PERRL. EOMI. No erythema or exudates. No palpable cervical, supraclavicular, or axillary adenopathy. Lungs : Decreased breath sounds about half way up on the right. Left is clear. Heart : Regular rate and rhythm without murmurs, rubs, or gallops. Abdomen: Soft, nontender without masses or organomegaly. Extremities: No edema. Skin reveals extensive hematoma extending from the right lateral and anterior ribs along the right side down into the right flank across the abdomen, across to the back, and down into the scrotum. There is also significant ecchymoses in the groin. DIAGNOSTIC STUDIES/LAB STUDIES: CBC today with an H and H of 29/9.4, significant to that on admission of 30 and 9.8. White count is mildly elevated at 14,600 today with 16.7 yesterday and was 19.1 on admission last week. Platelet count is normal at 418,000. There are no significant abnormalities in terms of his differential. INR of 1.21 and a PTT of 29.2. Chemistry studies with mildly elevated bilirubin of 1.8 and an AST of 47, ALT of 33, alk phos of 70. Renal function: Electrolytes are within normal limits. IMPRESSION: 1. An 80-year-old male with marked ecchymoses occurring along the right lateral chest wall extending all the way down to the abdomen and pelvis into the scrotum and out to the penis and groin. Associated with this is a very large right-sided fluid collection, likely hematoma underneath the rib cage in the second and more anterior collection where he is most tender underneath the fifth and sixth ribs. It is likely that these marked collections are just tracking of the initial hematoma. I do not see any evidence for any fractured ribs or even major trauma to the cartilage in the area, but I suspect this has happened from severe coughing. He has never had problems with bleeding in the past including with his coronary artery bypass graft. He has never had dental extractions. He has never had any significant bleeding or bruising problems, specifically no gum bleeds, nosebleeds, blood in the urine or stool. INR is mildly elevated and so, I will repeat. I really doubt that he has a significant underlying bleeding diathesis, but given the normal platelets, normal PTT, and essentially normal PT, I will obtain several tests just to make sure he does not cause of significant bleeding diathesis. This will include a factor XIII level of von Willebrand's panel and plasminogen level. In addition, given the mildly elevated INR, a factor VII level will also be checked. 2. Large pleural effusion: I would not be surprised if there is blood in this area from a rupture of intercostal blood vessel. Thoracentesis has been arranged with Interventional Radiology. This will be sent for culture as well as for cytology. 3. Underlying pneumonia with parapneumonic effusion: The patient is currently on Levaquin and consult has been placed with Dr. Mcclain with question of broadening antibiotic coverage. [id number]/[facility] #: [id number] PRIYANKA
[2016-09-08] MEDS: Vancomycin(*) 1,000 MG in NS 0.9% 250 ML* 250 ML IVPB SCH ×2 (01:07→14:08)
[2016-09-08 08:12] LABS: BUN/Creatinine Ratio 15.1 (8-20); EGFR African American 100.5 (>60); EGFR Non-African American 78.2 (>60); Potassium 3.7 mmol/L (3.5-5.0)
[2016-09-08 08:18] LABS: Hematocrit 30 % (42-52); Hemoglobin 9.7 g/dl (14.0-18.0); Mean Corpuscular HGB Conc 33 g/dl (31-36); Mean Corpuscular Hemoglobin 30 pg (27-31); Mean Corpuscular Volume 91 fL (80-94); Mean Platelet Volume 7 um3 (7.4-10.4); Red Blood Count 3.28 10^6/ul (4.0-5.4); Red Cell Distribution Width 14 % (10.5-15); White Blood Count 13.8 10^3/ul (3.5-10.8)
[2016-09-08] MEDS: NS 0.9% 1000 ML* 1,000 ML IV SCH (10:13)
[2016-09-08] MEDS: Cefepime(*) 1 GM in NS 0.9% 50 ML* 50 ML IVPB SCH ×2 (10:13→23:14)
[2016-09-08] MEDS: Atorvastatin* 10 MG TAB PO SCH (14:08)
[2016-09-08] MEDS: Montelukast Sodium TAB* 10 MG PO SCH (14:08)
[2016-09-08 15:48] LABS: Total Protein, BF 3.8 g/dL
--- NOTE | 2016-09-08 16:01 | PN ---
Subjective Date of Service: 09/08/16 Interval History: HOSPITALIST PROGRESS NOTE Patient seen and examined at bedside. He feels better today. Dyspnea is improved after thoracentesis, pain and cough still present, but less intense. Family History: Unchanged from Admission Social History: Unchanged from Admission Past Medical History: Unchanged from Admission Objective Active Medications: Acetaminophen (Tylenol Tab*) 650 mg PO Q4H PRN PRN Reason: FEVER/PAIN Last Admin: 09/06/16 20:11 Dose: 650 mg Hydrocodone Bitart/Acetaminophen ([place] 5-325 Tab*) 1 tab PO Q3H PRN PRN Reason: PAIN - MODERATE Atorvastatin Calcium (Lipitor*) 10 mg PO DAILY [facility] Last Admin: 09/08/16 14:08 Dose: 10 mg Benzonatate (Tessalon Cap*) 200 mg PO TID PRN PRN Reason: COUGH Levofloxacin/Dextrose (Levaquin 750 Mg Ivpremix(*)) 750 mg in 150 mls @ 100 mls /hr IVPB Q24H [facility] Last Admin: 09/07/16 16:26 Dose: 100 mls/hr Cefepime HCl 1 gm/ Sodium (Chloride) 50 mls @ 100 mls/hr IVPB Q12H [facility] Last Admin: 09/08/16 10:13 Dose: 100 mls/hr Vancomycin HCl 1,000 mg/ (Sodium Chloride) 250 mls @ 166.667 mls/hr IVPB Q12H [facility] Last Admin: 09/08/16 14:08 Dose: 166.667 mls/hr Sodium Chloride (Ns 0.9% 1000 Ml*) 1,000 mls @ 100 mls/hr IV PER RATE [facility] Last Admin: 09/08/16 10:13 Dose: 100 mls/hr Montelukast Sodium (Singulair Tab*) 10 mg PO DAILY [facility] Last Admin: 09/08/16 14:08 Dose: 10 mg Ondansetron HCl (Zofran Inj*) 4 mg IV Q6H PRN PRN Reason: NAUSEA Pharmacy Consult (Vancomycin Per Pharmacy*) 1 note FOLLOW UP . PRN PRN Reason: PER PROTOCOL Pharmacy Profile Note (Vancomycin Trough Check) 1 note FOLLOW UP .ENTER TIME ONE Stop: 09/09/16 12:31 Temazepam (Restoril Cap*) 15 mg PO BEDTIME PRN PRN Reason: INSOMNIA Vital Signs 09/08/16 09/08/16 11:28 14:30 Temperature 97.9 F 97.8 F Pulse Rate 83 95 Respiratory 16 18 Rate Blood Pressure 127/69 111/59 (mmHg) O2 Sat by Pulse 94 97 Oximetry Oxygen Devices in Use Now: None Appearance: Pleasant elderly male sitting up in a chair in NAD. Eyes: No Scleral Icterus Ears/Nose/Mouth/Throat: Mucous Membranes Moist Neck: Trachea Midline Respiratory: Symmetrical Chest Expansion and Respiratory Effort, - - BS+ bilaterally with no added sounds, absent in right base Cardiovascular: RRR - Normal S1 and S2 Abdominal: NL Sounds; No Tenderness; No Distention Neurological: Alert and Oriented x 3, NL Muscle Strength and Tone Lines/Tubes/Other Access: Clean, Dry and Intact Peripheral IV Nutrition: Taking PO's Result Diagrams: 09/08/16 06:56 09/08/16 06:56 Assess/Plan/Problems-Billing Assessment: Mr. Demarco is an 80yo M with PMH of CAD, HLD, chronic bronchitis, who presented to ED with c/o bruising and cough, found to have a large right chest wall hematoma and worsening pleural effusion. - Patient Problems (1) Pneumonia Comment: - D/w Dr. Mcclain - will broaden antibiotic coverage with Vanco and Cefepime. - Follow cultures. (2) Pleural effusion, right Comment: - Thoracentesis drained 900ml of bloody fluid - awaiting cytology. - No significant trauma history. - Suspect he ruptured an intercostal blood vessel due to significant cough, causing his effusion and hematoma. - Awaiting Surgery follow up for chest tube placement. (3) Hematoma Comment: - Patient stopped aspirin >1 month ago. - No significant local trauma. - Hematology input appreciated. (4) DVT prophylaxis Comment: - Pharmacological prophylaxis contraindicated in the setting of bleeding. - SCDs. (5) Full code status Status and Disposition: Inpatient. updated at bedside.
[2016-09-08] MEDS: HYDROcodone/ACETAMIN 5-325 MG* 1 TAB PO PRN ×2 (17:02→23:14)
[2016-09-08] MEDS: Levofloxacin 750 MG IVPREMIX(* 750 MG/150 ML BAG IVPB SCH (17:04)
[2016-09-08] MEDS: Temazepam CAP* 15 MG PO PRN (21:50)
[2016-09-09] MEDS: NS 0.9% 1000 ML* 1,000 ML IV SCH ×2 (01:02→17:50)
[2016-09-09] MEDS: Vancomycin(*) 1,000 MG in NS 0.9% 250 ML* 250 ML IVPB SCH ×2 (01:02→13:07)
--- NOTE | 2016-09-09 02:03 | OP ---
CC: Manuel Ferreira MD; Megha Mcclain MD; Alireza Cerna MD OPERATIVE REPORT: DATE OF OPERATION: 09/08/16 DATE OF : 35 HISTORY AND INDICATIONS FOR PROCEDURE: Mr. Demarco is an 80-year-old who presented with a large ri ght chest and flank ecchymosis of uncertain etiology. He also had subcutaneous hematoma as well as right hemothorax and he was seen by Medicine and by Pulmonology. He had Interventional Radiology dr draper procedure, which yielded about a liter of bloody fluid. The culture so far is negative on . Repeat CT scan after this shows that it is still a substantial amount of fluid and the ultrasou nd was concerning for some septations or loculations. Therefore, was felt that chest tube drainage w ould be carried out. I discussed the procedure at some length with the patient and his . They understand the procedure, the rationale, and all the questions have been answered and they agreed to proceed. DESCRIPTION OF PROCEDURE: The patient was supine in bed with the right arm over towards the left [employer]. The right lateral chest was prepped with antiseptic and draped in a sterile fashion. Local infiltrative anesthesia 1% plain lidocaine was administered and approximately 2 to 3 cm incision wa s created down to approximately the 8th interspace just above the rib. The pleural space was entere d with a [place] clamp and digital palpation identified that there was free space for tube. The fluid was bloody, but not clotted. There was no purulence. A 28-[place] chest tube was inserted by palpa tion and was at about 15 cm at the skin and sutured into place using 0 silk suture and attached to t he Pleur-evac. Bulky gauze dressing was placed. He tolerated this well. There were no complicatio ns. The drain was 28- [place] chest tube. No specimens and there was estimated about 150 mL on the bedding that leaked out during the procedure and another 650 mL immediately in the Pleur-evac itself . [id number]/[facility] #: [id number]
[2016-09-09] MEDS: HYDROcodone/ACETAMIN 5-325 MG* 1 TAB PO PRN ×2 (04:36→23:03)
[2016-09-09] MEDS: Montelukast Sodium TAB* 10 MG PO SCH (07:24)
[2016-09-09] MEDS: Atorvastatin* 10 MG TAB PO SCH (07:24)
--- NOTE | 2016-09-09 08:06 | RAD ---
HISTORY: Chest tube COMPARISONS: August 31, 2016 VIEWS:1: Single frontal portable view of the chest at 6:23 AM FINDINGS: LINES AND TUBES: There is a right-sided chest tube. CARDIOMEDIASTINAL SILHOUETTE: The cardiomediastinal silhouette is normal for portable technique. PLEURA: There is hazy opacification of the right hemithorax suggestive of posteriorly layering right pleural effusion. LUNG PARENCHYMA: There is patchy linear opacification in the right lung base ABDOMEN: The upper abdomen is clear. There is no subphrenic gas. BONES AND SOFT TISSUES: No bone or soft tissue abnormalities are noted. IMPRESSION: LINES AND TUBES ABOVE. RIGHT PLEURAL EFFUSION WITH RIGHT BASILAR ATELECTASIS VERSUS CONSOLIDATION.
[2016-09-09] MEDS: Cefepime(*) 1 GM in NS 0.9% 50 ML* 50 ML IVPB SCH ×2 (10:40→23:00)
[2016-09-09] MEDS ORDERED: Vancomycin Trough Check NOTE FOLLOW UP ONE (12:30)
[2016-09-09] MEDS ORDERED: Vancomycin(*) 1,250 MG in NS 0.9% 250 ML* 250 ML IVPB SCH (14:55)
--- NOTE | 2016-09-09 15:28 | PN ---
Subjective Date of Service: 09/09/16 Interval History: HOSPITALIST PROGRESS NOTE Patient seen and examined at bedside. He feels well today, breathing is easier after chest tube was placed. Still has infrequent cough. Family History: Unchanged from Admission Social History: Unchanged from Admission Past Medical History: Unchanged from Admission Objective Active Medications: Acetaminophen (Tylenol Tab*) 650 mg PO Q4H PRN PRN Reason: FEVER/PAIN Last Admin: 09/06/16 20:11 Dose: 650 mg Hydrocodone Bitart/Acetaminophen ([place] 5-325 Tab*) 1 tab PO Q3H PRN PRN Reason: PAIN - MODERATE Last Admin: 09/09/16 04:36 Dose: 1 tab Atorvastatin Calcium (Lipitor*) 10 mg PO DAILY [facility] Last Admin: 09/09/16 07:24 Dose: 10 mg Benzonatate (Tessalon Cap*) 200 mg PO TID PRN PRN Reason: COUGH Last Admin: 09/09/16 11:47 Dose: 200 mg Levofloxacin/Dextrose (Levaquin 750 Mg Ivpremix(*)) 750 mg in 150 mls @ 100 mls /hr IVPB Q24H [facility] Last Admin: 09/08/16 17:04 Dose: 100 mls/hr Cefepime HCl 1 gm/ Sodium (Chloride) 50 mls @ 100 mls/hr IVPB Q12H [facility] Last Admin: 09/09/16 10:40 Dose: 100 mls/hr Sodium Chloride (Ns 0.9% 1000 Ml*) 1,000 mls @ 100 mls/hr IV PER RATE [facility] Last Admin: 09/09/16 01:02 Dose: 100 mls/hr Vancomycin HCl 1,250 mg/ (Sodium Chloride) 250 mls @ 166.667 mls/hr IVPB 0100, 1300 [facility] Montelukast Sodium (Singulair Tab*) 10 mg PO DAILY [facility] Last Admin: 09/09/16 07:24 Dose: 10 mg Ondansetron HCl (Zofran Inj*) 4 mg IV Q6H PRN PRN Reason: NAUSEA Pharmacy Consult (Vancomycin Per Pharmacy*) 1 note FOLLOW UP . PRN PRN Reason: PER PROTOCOL Pharmacy Profile Note (Vancomycin Trough Check) 1 note FOLLOW UP 1300 ONE Stop: 09/12/16 13:01 Temazepam (Restoril Cap*) 15 mg PO BEDTIME PRN PRN Reason: INSOMNIA Last Admin: 09/08/16 21:50 Dose: 15 mg Vital Signs 09/09/16 09/09/16 09/09/16 08:00 08:41 14:10 Temperature 98.1 F Pulse Rate 95 Respiratory 18 16 Rate Blood Pressure 131/63 (mmHg) O2 Sat by Pulse 96 95 Oximetry Oxygen Devices in Use Now: None Appearance: Pleasant elderly male lying in bed in NAD. Eyes: No Scleral Icterus Ears/Nose/Mouth/Throat: Mucous Membranes Moist Neck: Trachea Midline Respiratory: Symmetrical Chest Expansion and Respiratory Effort, Clear to Auscultation, - - Decreased in right base Cardiovascular: RRR - Normal S1 and S2 Abdominal: NL Sounds; No Tenderness; No Distention Extremities: No Edema Neurological: Alert and Oriented x 3, NL Muscle Strength and Tone Lines/Tubes/Other Access: Clean, Dry and Intact Peripheral IV Nutrition: Taking PO's Result Diagrams: 09/08/16 06:56 09/08/16 06:56 Assess/Plan/Problems-Billing Assessment: Mr. Demarco is an 80yo M with PMH of CAD, HLD, chronic bronchitis, who presented to ED with c/o bruising and cough, found to have a large right chest wall hematoma and worsening pleural effusion. - Patient Problems (1) Pneumonia Comment: - Continue Vanco, Cefepime, and Levofloxacin. - Cultures show no growth so far - may d/c Vanco tomorrow if no MRSA. (2) Pleural effusion, right Comment: - Thoracentesis drained 900ml of bloody fluid - awaiting cytology. - No significant trauma history. - Suspect he ruptured an intercostal blood vessel due to significant cough, causing his effusion and hematoma. - S/p chest tube placement by Dr. Ferreira 09/08/16. (3) Hematoma Comment: - Patient stopped aspirin >1 month ago. - No significant local trauma. - Hematology input appreciated. (4) DVT prophylaxis Comment: - Pharmacological prophylaxis contraindicated in the setting of bleeding. - SCDs. (5) Full code status Status and Disposition: Inpatient. updated at bedside.
[2016-09-09] MEDS: Levofloxacin 750 MG IVPREMIX(* 750 MG/150 ML BAG IVPB SCH (16:07)
--- NOTE | 2016-09-09 16:11 | PN ---
Progress Note - Progress Note Note: Pulm consult f/u note 09/09/16. Pt seen and examined at bedside. Pt reports improvement in breathing. Pt has only mild discomfort at chest tube site. Active Medications Generic Name Dose Route Start Last Admin Trade Name Freq PRN Reason Stop Dose Admin Acetaminophen 650 mg 09/06/16 15:35 09/06/16 20:11 Tylenol Tab* PO 650 mg Q4H PRN Administration FEVER/PAIN Hydrocodone Bitart/Acetaminophen 1 tab 09/06/16 15:39 09/09/16 04:36 [place] 5-325 Tab* PO 1 tab Q3H PRN Administration PAIN - MODERATE Atorvastatin Calcium 10 mg 09/07/16 09:00 09/09/16 07:24 Lipitor* PO 10 mg DAILY [facility] Administration Benzonatate 200 mg 09/06/16 15:39 09/09/16 11:47 Tessalon Cap* PO 200 mg TID PRN Administration COUGH Levofloxacin/Dextrose 750 mg in 150 mls @ 100 mls/hr 09/06/16 16:00 09/08/16 17:04 Levaquin 750 Mg Ivpremix(*) IVPB 100 mls/hr Q24H [facility] Administration Cefepime HCl 1 gm/ Sodium 50 mls @ 100 mls/hr 09/07/16 11:00 09/09/16 10:40 Chloride IVPB 100 mls/hr Q12H [facility] Administration Sodium Chloride 1,000 mls @ 100 mls/hr 09/07/16 23:59 09/09/16 01:02 Ns 0.9% 1000 Ml* IV 100 mls/hr PER RATE [facility] Administration Vancomycin HCl 1,250 mg/ 250 mls @ 166.667 mls/hr 09/10/16 01:00 Sodium Chloride IVPB 0100,1300 [facility] Montelukast Sodium 10 mg 09/07/16 09:00 09/09/16 07:24 Singulair Tab* PO 10 mg DAILY [facility] Administration Ondansetron HCl 4 mg 09/06/16 15:35 Zofran Inj* IV Q6H PRN NAUSEA Pharmacy Consult 1 note 09/07/16 11:00 Vancomycin Per Pharmacy* FOLLOW UP . PRN PER PROTOCOL Pharmacy Profile Note 1 note 09/12/16 13:00 Vancomycin Trough Check FOLLOW UP 09/12/16 13:01 1300 ONE Temazepam 15 mg 09/08/16 09:02 09/08/16 21:50 Restoril Cap* PO 15 mg BEDTIME PRN Administration INSOMNIA Vital Signs Temp Pulse Resp BP Pulse Ox 98.1 F 95 16 131/63 95 09/09/16 14:10 09/09/16 14:10 09/09/16 14:10 09/09/16 14:10 09/09/16 14:10 Gen: Pt in bed in NAD. HEENT: No Scleral Icterus, Mucous Membranes Moist Neck: Trachea Midline Respiratory: Symmetrical Chest Expansion and Respiratory Effort, Clear to Auscultation, Decreased in right base Cardiovascular: RRR, Normal S1 and S2 Abdominal: NL Sounds; No Tenderness; No Distention Extremities: No Edema Neurological: Alert and Oriented x 3, NL Muscle Strength and Tone Laboratory Results - last 24 hr 09/07/16 09/07/16 09/09/16 12:00 20:16 12:59 Factor VII Activity 81 Fluid Source TNP Fluid LDH TNP Vancomycin Trough 10.8 I/R: Pt is an 80yo M with PMH of CAD, HLD, chronic bronchitis, who presented to ED with c/o bruising and cough, found to have a large right chest wall hematoma and worsening pleural effusion. Pt had thoracentesis with removal of 900 cc of bloody fluid. Pt had chest tube placed by sx yesterday Pt drained 1200cc since chest tube placement Rpt CXR from this morning showed posteriorly located fluid on rt side Pt continues to have free flowing bloody fluid, turning more serosanguinous ON broad spectrum abx Etiology still unclear however suspect secondary to cough and ? trauma during syncope c/w chest tube drainage D/w Dr Ferreira
[2016-09-09 22:39] LABS: BF PH 7.8
[2016-09-09] MEDS: Temazepam CAP* 15 MG PO PRN (23:05)
[2016-09-10] MEDS ORDERED: Vancomycin(*) 1,250 MG in NS 0.9% 250 ML* 250 ML IVPB SCH (01:00)
[2016-09-10] MEDS: HYDROcodone/ACETAMIN 5-325 MG* 1 TAB PO PRN ×3 (05:29→22:05)
[2016-09-10 06:11] LABS: Hematocrit 28 % (42-52); Hemoglobin 9.1 g/dl (14.0-18.0); Mean Corpuscular HGB Conc 33 g/dl (31-36); Mean Corpuscular Hemoglobin 30 pg (27-31); Mean Corpuscular Volume 91 fL (80-94); Mean Platelet Volume 7 um3 (7.4-10.4); Red Blood Count 3.04 10^6/ul (4.0-5.4); Red Cell Distribution Width 14 % (10.5-15); White Blood Count 12.4 10^3/ul (3.5-10.8)
[2016-09-10 06:29] LABS: BUN/Creatinine Ratio 14.6 (8-20); C Reactive Protein 185.13 mg/L (< 5.00); Calcium 7.6 mg/dL (8.6-10.3); EGFR African American 116.3 (>60); EGFR Non-African American 90.4 (>60); Potassium 3.7 mmol/L (3.5-5.0)
[2016-09-10] MEDS: NS 0.9% 1000 ML* 1,000 ML IV SCH (07:06)
[2016-09-10] MEDS: Atorvastatin* 10 MG TAB PO SCH (09:07)
[2016-09-10] MEDS: Montelukast Sodium TAB* 10 MG PO SCH (09:07)
--- NOTE | 2016-09-10 10:43 | RAD ---
Indication: Follow-up right pleural effusion Single frontal view of the chest performed at 0800 hours was reviewed. Comparison is made with previous exam dated September 09, 2016. Right basilar atelectasis with moderate size right pleural effusion is noted. No significant change is noted since September 09, 2016. Left base atelectasis is noted. Right-sided chest tube remains in place. IMPRESSION: RIGHT PLEURAL EFFUSION WITH RIGHT BASILAR ATELECTASIS PERSISTS AND IS UNCHANGED FROM PREVIOUS EXAM.
[2016-09-10] MEDS: Cefepime(*) 1 GM in NS 0.9% 50 ML* 50 ML IVPB SCH (11:01)
--- NOTE | 2016-09-10 11:38 | PN ---
Progress Note - Progress Note SOAP: Subjective: Continues to feel better and less pain Breathing better Objective: Temp Pulse Resp BP Pulse Ox 99.1 F 73 18 118/66 92 09/10/16 07:43 09/10/16 07:43 09/10/16 08:00 09/10/16 07:43 09/10/16 07:43 CT drainage 1300 cc total ( 500 cc last 24 hours) no leak PEX: Dressing right chest in place Breath sounds present on right, decreased at base CXR reviewed today- minimal change Assessment: Right apparent hemothorax Cultures negative so far Plan: Continue CT drainage CXR 09/11
[2016-09-10] MEDS ORDERED: Cyclobenzaprine TAB* 10 MG PO PRN (14:37)
[2016-09-10] MEDS: Levofloxacin 750 MG IVPREMIX(* 750 MG/150 ML BAG IVPB SCH (16:06)
--- NOTE | 2016-09-10 17:27 | PN ---
Subjective Date of Service: 09/10/16 Interval History: HOSPITALIST PROGRESS NOTE Patient seen and examined at bedside. He feels well today. Pain is minimal, breathing is improving, trying to move more, walk around the unit multiple times. Family History: Unchanged from Admission Social History: Unchanged from Admission Past Medical History: Unchanged from Admission Objective Active Medications: Acetaminophen (Tylenol Tab*) 650 mg PO Q4H PRN PRN Reason: FEVER/PAIN Last Admin: 09/06/16 20:11 Dose: 650 mg Hydrocodone Bitart/Acetaminophen ([place] 5-325 Tab*) 1 tab PO Q3H PRN PRN Reason: PAIN - MODERATE Last Admin: 09/10/16 14:33 Dose: 1 tab Atorvastatin Calcium (Lipitor*) 10 mg PO DAILY [facility] Last Admin: 09/10/16 09:07 Dose: 10 mg Benzonatate (Tessalon Cap*) 200 mg PO TID PRN PRN Reason: COUGH Last Admin: 09/09/16 11:47 Dose: 200 mg Cyclobenzaprine HCl (Flexeril Tab*) 10 mg PO TID PRN PRN Reason: SPASMS Levofloxacin/Dextrose (Levaquin 750 Mg Ivpremix(*)) 750 mg in 150 mls @ 100 mls /hr IVPB Q24H [facility] Last Admin: 09/10/16 16:06 Dose: 100 mls/hr Cefepime HCl 1 gm/ Sodium (Chloride) 50 mls @ 100 mls/hr IVPB Q12H [facility] Last Admin: 09/10/16 11:01 Dose: 100 mls/hr Montelukast Sodium (Singulair Tab*) 10 mg PO DAILY [facility] Last Admin: 09/10/16 09:07 Dose: 10 mg Ondansetron HCl (Zofran Inj*) 4 mg IV Q6H PRN PRN Reason: NAUSEA Temazepam (Restoril Cap*) 15 mg PO BEDTIME PRN PRN Reason: INSOMNIA Last Admin: 09/09/16 23:05 Dose: 15 mg Vital Signs 09/10/16 15:56 Temperature 99.1 F Pulse Rate 85 Respiratory 16 Rate Blood Pressure 117/61 (mmHg) O2 Sat by Pulse 91 Oximetry Oxygen Devices in Use Now: None Appearance: Pleasant elderly male sitting up in bed in NAD. Eyes: No Scleral Icterus Ears/Nose/Mouth/Throat: Mucous Membranes Moist Neck: Trachea Midline Respiratory: Symmetrical Chest Expansion and Respiratory Effort, Clear to Auscultation Cardiovascular: RRR - Normal S1 and S2 Abdominal: NL Sounds; No Tenderness; No Distention Extremities: No Edema Neurological: Alert and Oriented x 3, NL Muscle Strength and Tone Lines/Tubes/Other Access: Clean, Dry and Intact Peripheral IV Nutrition: Taking PO's Result Diagrams: 09/10/16 05:46 09/10/16 05:46 Assess/Plan/Problems-Billing Assessment: Mr. Demarco is an 80yo M with PMH of CAD, HLD, chronic bronchitis, who presented to ED with c/o bruising and cough, found to have a large right chest wall hematoma and worsening pleural effusion. - Patient Problems (1) Pneumonia Comment: - Continue Cefepime and Levofloxacin. - Cultures show no growth so far - d/c [place]. (2) Pleural effusion, right Comment: - Thoracentesis drained 900ml of bloody fluid - awaiting cytology. - He now remembers roughhousing with his grandkinds and both jumped on the right side of his chest. This happened prior to his syncopal episode. - Suspect he ruptured an intercostal blood vessel due to significant cough or trauma (see above), causing his effusion and hematoma. - S/p chest tube placement by Dr. Ferreira 09/08/16. - Continue to follow CxR. (3) Hematoma Comment: - Patient stopped aspirin >1 month ago. - Hematology input appreciated. (4) DVT prophylaxis Comment: - Pharmacological prophylaxis contraindicated in the setting of bleeding. - SCDs. (5) Full code status Status and Disposition: Inpatient. Daughter updated at bedside.
[2016-09-10] MEDS: Temazepam CAP* 15 MG PO PRN (22:06)
[2016-09-11] MEDS: Cefepime(*) 1 GM in NS 0.9% 50 ML* 50 ML IVPB SCH ×3 (00:01→23:39)
[2016-09-11] MEDS: Montelukast Sodium TAB* 10 MG PO SCH (08:22)
[2016-09-11] MEDS: Atorvastatin* 10 MG TAB PO SCH (08:22)
[2016-09-11] MEDS ORDERED: HYDROcodone/ACETAMIN 5-325 MG* 1 TAB PO PRN (09:46)
--- NOTE | 2016-09-11 09:53 | RAD ---
Indication: Right pleural effusion. Single frontal view of the chest performed at 0723 hours was reviewed. Comparison is made with previous exam dated September 10, 2016. Cardiomegaly persists. Patient is status post tracer thoracotomy. Right pleural effusion is still persistent and unchanged from previous exam. Right chest tube remains in place. Left lung field is unchanged. IMPRESSION: RIGHT PLEURAL EFFUSION IS UNCHANGED.
[2016-09-11] MEDS: HYDROcodone/ACETAMIN 5-325 MG* 1 TAB PO PRN ×2 (10:29→23:38)
[2016-09-11] MEDS: Docusate CAP* 100 MG PO SCH ×2 (10:29→21:50)
[2016-09-11] MEDS: Polyethylene Glycol 3350* 17 GM PACKET PO SCH (10:29)
--- NOTE | 2016-09-11 11:24 | PN ---
Progress Note - Progress Note SOAP: Subjective: Without complaint today Objective: Temp Pulse Resp BP Pulse Ox 98.7 F 87 16 133/77 98 09/11/16 08:33 09/11/16 08:33 09/11/16 10:29 09/11/16 08:33 09/11/16 08:33 Chest tube level about 1600 cc ( 300 cc last 24 hours) No leak PEX: Comfortable Lungs are clear with decreased breath sounds on the right, dressing intact CXR reviewed--still with consolidation of the right base. Assessment: Right hemothorax s/p chest tube insertion Plan: Continue chest tube drainage CXR in AM
[2016-09-11] MEDS: Levofloxacin 750 MG IVPREMIX(* 750 MG/150 ML BAG IVPB SCH (15:34)
--- NOTE | 2016-09-11 16:49 | PN ---
Subjective Date of Service: 09/11/16 Interval History: HOSPITALIST PROGRESS NOTE Patient seen and examined at bedside. He c/o more right chest pain. Requires oxygen now to keep SO2>90% although he denies dyspnea. Family History: Unchanged from Admission Social History: Unchanged from Admission Past Medical History: Unchanged from Admission Objective Active Medications: Acetaminophen (Tylenol Tab*) 650 mg PO Q4H PRN PRN Reason: FEVER/PAIN Last Admin: 09/06/16 20:11 Dose: 650 mg Hydrocodone Bitart/Acetaminophen ([place] 5-325 Tab*) 2 tab PO Q4H PRN PRN Reason: Pain 6-10 Hydrocodone Bitart/Acetaminophen ([place] 5-325 Tab*) 1 tab PO Q4H PRN PRN Reason: Pain 1-5 Last Admin: 09/11/16 10:29 Dose: 1 tab Atorvastatin Calcium (Lipitor*) 10 mg PO DAILY [facility] Last Admin: 09/11/16 08:22 Dose: 10 mg Benzonatate (Tessalon Cap*) 200 mg PO TID PRN PRN Reason: COUGH Last Admin: 09/09/16 11:47 Dose: 200 mg Cyclobenzaprine HCl (Flexeril Tab*) 10 mg PO TID PRN PRN Reason: SPASMS Docusate Sodium (Colace Cap*) 100 mg PO BID [facility] Last Admin: 09/11/16 10:29 Dose: 100 mg Levofloxacin/Dextrose (Levaquin 750 Mg Ivpremix(*)) 750 mg in 150 mls @ 100 mls /hr IVPB Q24H [facility] Last Admin: 09/11/16 15:34 Dose: 100 mls/hr Cefepime HCl 1 gm/ Sodium (Chloride) 50 mls @ 100 mls/hr IVPB Q12H [facility] Last Admin: 09/11/16 10:30 Dose: 100 mls/hr Montelukast Sodium (Singulair Tab*) 10 mg PO DAILY [facility] Last Admin: 09/11/16 08:22 Dose: 10 mg Ondansetron HCl (Zofran Inj*) 4 mg IV Q6H PRN PRN Reason: NAUSEA Polyethylene Glycol/Electrolytes (Miralax*) 17 gm PO DAILY [facility] Last Admin: 09/11/16 10:29 Dose: 17 gm Temazepam (Restoril Cap*) 15 mg PO BEDTIME PRN PRN Reason: INSOMNIA Last Admin: 09/10/16 22:06 Dose: 15 mg Vital Signs 09/11/16 09/11/16 09/11/16 09:17 10:29 11:20 Temperature 98.6 F Pulse Rate 82 Respiratory 18 16 20 Rate Blood Pressure 112/60 (mmHg) O2 Sat by Pulse 100 Oximetry Oxygen Devices in Use Now: Nasal Cannula Appearance: Pleasant elderly male sitting up in a chair in NAD. Eyes: No Scleral Icterus Ears/Nose/Mouth/Throat: Mucous Membranes Moist Neck: Trachea Midline Respiratory: Symmetrical Chest Expansion and Respiratory Effort, - - BS+ bilaterally, pleural rub on the right Cardiovascular: RRR - Normal S1 and S2 Abdominal: NL Sounds; No Tenderness; No Distention Extremities: No Edema Neurological: Alert and Oriented x 3, NL Muscle Strength and Tone Lines/Tubes/Other Access: Clean, Dry and Intact Chest Tube, Clean, Dry and Intact Peripheral IV Nutrition: Taking PO's Result Diagrams: 09/10/16 05:46 09/10/16 05:46 Assess/Plan/Problems-Billing Assessment: Mr. Demarco is an 80yo M with PMH of CAD, HLD, chronic bronchitis, who presented to ED with c/o bruising and cough, found to have a large right chest wall hematoma and worsening pleural effusion. - Patient Problems (1) Pneumonia Comment: - Continue Cefepime and Levofloxacin. - Cultures show no growth so far - d/c [place]. (2) Pleural effusion, right Comment: - Thoracentesis drained 900ml of bloody fluid - awaiting cytology. - He now remembers roughhousing with his grandkinds and both jumped on the right side of his chest. This happened prior to his syncopal episode. - Suspect he ruptured an intercostal blood vessel due to significant cough or trauma (see above), causing his effusion and hematoma. - S/p chest tube placement by Dr. Ferreira 09/08/16. - Tube still drained 300ml over the past 24h. - Suspect pain is worse now because effusion is much smaller. Patient encouraged to take pain meds, so he can take deep breaths. - Incentive spirometer. (3) Hypoxia Comment: - Likely secondary to pain and atelectasis as his breathing is shallower today. - Continue supplemental O2. - Pain meds and IS. (4) Hematoma Comment: - Patient stopped aspirin >1 month ago. - Hematology input appreciated. (5) DVT prophylaxis Comment: - Pharmacological prophylaxis contraindicated in the setting of bleeding. - SCDs. (6) Full code status Status and Disposition: Inpatient. Daughter updated at bedside.
[2016-09-11] MEDS: Temazepam CAP* 15 MG PO PRN (23:38)
[2016-09-12 06:40] LABS: Hematocrit 27 % (42-52); Hemoglobin 8.7 g/dl (14.0-18.0); Mean Corpuscular HGB Conc 33 g/dl (31-36); Mean Corpuscular Hemoglobin 29 pg (27-31); Mean Corpuscular Volume 88 fL (80-94); Mean Platelet Volume 7 um3 (7.4-10.4); Red Blood Count 3.03 10^6/ul (4.0-5.4); Red Cell Distribution Width 13 % (10.5-15); White Blood Count 12.1 10^3/ul (3.5-10.8)
[2016-09-12 06:54] LABS: BUN/Creatinine Ratio 14.6 (8-20); Calcium 7.9 mg/dL (8.6-10.3); EGFR African American 116.3 (>60); EGFR Non-African American 90.4 (>60)
[2016-09-12] MEDS: Atorvastatin* 10 MG TAB PO SCH (07:47)
[2016-09-12] MEDS: Docusate CAP* 100 MG PO SCH ×2 (07:48→20:37)
[2016-09-12] MEDS: Polyethylene Glycol 3350* 17 GM PACKET PO SCH (07:48)
[2016-09-12] MEDS: Montelukast Sodium TAB* 10 MG PO SCH (07:48)
--- NOTE | 2016-09-12 09:43 | PN ---
Progress Note - Progress Note SOAP: Subjective: Feeling better, has no complaints. Ambulatory. Objective: Awake and alert, sitting on chair, in NAD VSS, afebrile Lungs CTA, decreased breath sounds bibasilar. CXR pending I/O noted, still >200 cc output from chest tube. Assessment: An 80 y/o male with persistent pleural effusion. Plan: Discussed with Dr. Ferreira, who advised continuing with chest tube for now.
--- NOTE | 2016-09-12 10:08 | RAD ---
INDICATION: Pneumonia. RIGHT pleural effusion; chest tube follow-up. COMPARISON: September 11, 2016 chest radiograph and September 07, 2016 CT. TECHNIQUE: Dual energy PA and routine lateral views of the chest were obtained. REPORT: No gross change in position of the RIGHT basilar large bore chest tube. Small to moderate partially loculated appearing RIGHT basilar pleural fluid collection is decreased in size. Small volume of fluid tracks into the RIGHT minor fissure. RIGHT mid to basilar alveolar consolidation may represent atelectasis or pneumonia. Negative for pneumothorax. Median sternotomy wires and mediastinal vascular clips. Negative for cardiomegaly. Unremarkable central pulmonary vasculature. IMPRESSION: Unchanged position of RIGHT basilar chest tube. Mild interval decrease in partially loculated appearing RIGHT pleural effusion and mid to lower lung zone alveolar consolidation which may represent atelectasis or pneumonia.
[2016-09-12] MEDS: Cefepime(*) 1 GM in NS 0.9% 50 ML* 50 ML IVPB SCH (11:39)
[2016-09-12] MEDS ORDERED: Vancomycin Trough Check NOTE FOLLOW UP ONE (13:00)
[2016-09-12] MEDS: Levofloxacin 750 MG IVPREMIX(* 750 MG/150 ML BAG IVPB SCH (16:05)
--- NOTE | 2016-09-12 16:28 | PN ---
Subjective Date of Service: 09/12/16 Interval History: HOSPITALIST PROGRESS NOTE Patient seen and examined at bedside. He feels well today, pain is controlled, working with his IS. Family History: Unchanged from Admission Social History: Unchanged from Admission Past Medical History: Unchanged from Admission Objective Active Medications: Acetaminophen (Tylenol Tab*) 650 mg PO Q4H PRN PRN Reason: FEVER/PAIN Last Admin: 09/06/16 20:11 Dose: 650 mg Hydrocodone Bitart/Acetaminophen ([place] 5-325 Tab*) 2 tab PO Q4H PRN PRN Reason: Pain 6-10 Hydrocodone Bitart/Acetaminophen ([place] 5-325 Tab*) 1 tab PO Q4H PRN PRN Reason: Pain 1-5 Last Admin: 09/11/16 23:38 Dose: 1 tab Atorvastatin Calcium (Lipitor*) 10 mg PO DAILY [facility] Last Admin: 09/12/16 07:47 Dose: 10 mg Benzonatate (Tessalon Cap*) 200 mg PO TID PRN PRN Reason: COUGH Last Admin: 09/09/16 11:47 Dose: 200 mg Cyclobenzaprine HCl (Flexeril Tab*) 10 mg PO TID PRN PRN Reason: SPASMS Docusate Sodium (Colace Cap*) 100 mg PO BID [facility] Last Admin: 09/12/16 07:48 Dose: 100 mg Montelukast Sodium (Singulair Tab*) 10 mg PO DAILY [facility] Last Admin: 09/12/16 07:48 Dose: 10 mg Ondansetron HCl (Zofran Inj*) 4 mg IV Q6H PRN PRN Reason: NAUSEA Polyethylene Glycol/Electrolytes (Miralax*) 17 gm PO DAILY [facility] Last Admin: 09/12/16 07:48 Dose: 17 gm Temazepam (Restoril Cap*) 15 mg PO BEDTIME PRN PRN Reason: INSOMNIA Last Admin: 09/11/16 23:38 Dose: 15 mg Vital Signs 09/11/16 09/12/16 09/12/16 23:38 04:09 07:21 Temperature 97.7 F Pulse Rate 83 76 Respiratory 20 16 16 Rate Blood Pressure 127/59 124/58 (mmHg) O2 Sat by Pulse 96 94 Oximetry Oxygen Devices in Use Now: Nasal Cannula Appearance: Pleasant elderly male lying in bed in [facility]. Eyes: No Scleral Icterus Ears/Nose/Mouth/Throat: Mucous Membranes Moist Neck: Trachea Midline Respiratory: Symmetrical Chest Expansion and Respiratory Effort, - - BS+ bilaterally with pleural rub on the right Cardiovascular: NL Sounds; No Murmurs; No JVD, RRR Abdominal: NL Sounds; No Tenderness; No Distention Extremities: No Edema Neurological: Alert and Oriented x 3, NL Muscle Strength and Tone Lines/Tubes/Other Access: Clean, Dry and Intact Peripheral IV Nutrition: Taking PO's Result Diagrams: 09/12/16 06:16 09/12/16 06:16 Assess/Plan/Problems-Billing Assessment: Mr. Demarco is an 80yo M with PMH of CAD, HLD, chronic bronchitis, who presented to ED with c/o bruising and cough, found to have a large right chest wall hematoma and worsening pleural effusion. - Patient Problems (1) Pneumonia Comment: - Will d/c abx. (2) Pleural effusion, right Comment: - Thoracentesis drained 900ml of bloody fluid - cytology negative for malignancy. - He now remembers roughhousing with his grandkinds and both jumped on the right side of his chest. This happened prior to his syncopal episode. - Suspect he ruptured an intercostal blood vessel due to significant cough or trauma (see above), causing his effusion and hematoma. - S/p chest tube placement by Dr. Ferreira 09/08/16. - Tube still drained >200ml over the past 24h. - Suspect pain is worse now because effusion is much smaller. Patient encouraged to take pain meds, so he can take deep breaths. - Incentive spirometer. (3) Hypoxia Comment: - Likely secondary to pain and atelectasis as his breathing is shallower today. - Continue supplemental O2. - Pain meds and IS. (4) DVT prophylaxis Comment: - Pharmacological prophylaxis contraindicated in the setting of bleeding. - SCDs. (5) Full code status Status and Disposition: Inpatient. and daughter updated at bedside.
--- NOTE | 2016-09-12 18:17 | PN ---
Progress Note - Progress Note Note: Pulm consult f/u note 09/12/16. Pt seen and examined at bedside. Pt reports improvement in breathing. Pt has only mild discomfort at chest tube site. Also reports feeling cold, has 2 blankets on. Active Medications Generic Name Dose Route Start Last Admin Trade Name Freq PRN Reason Stop Dose Admin Acetaminophen 650 mg 09/06/16 15:35 09/06/16 20:11 Tylenol Tab* PO 650 mg Q4H PRN Administration FEVER/PAIN Hydrocodone Bitart/Acetaminophen 2 tab 09/11/16 09:46 [place] 5-325 Tab* PO Q4H PRN Pain 6-10 Hydrocodone Bitart/Acetaminophen 1 tab 09/11/16 10:06 09/11/16 23:38 [place] 5-325 Tab* PO 1 tab Q4H PRN Administration Pain 1-5 Atorvastatin Calcium 10 mg 09/07/16 09:00 09/12/16 07:47 Lipitor* PO 10 mg DAILY CORINNE Administration Benzonatate 200 mg 09/06/16 15:39 09/09/16 11:47 Tessalon Cap* PO 200 mg TID PRN Administration COUGH Cyclobenzaprine HCl 10 mg 09/10/16 14:37 Flexeril Tab* PO TID PRN SPASMS Docusate Sodium 100 mg 09/11/16 11:00 09/12/16 07:48 Colace Cap* PO 100 mg BID CORINNE Administration Montelukast Sodium 10 mg 09/07/16 09:00 09/12/16 07:48 Singulair Tab* PO 10 mg DAILY CORINNE Administration Ondansetron HCl 4 mg 09/06/16 15:35 Zofran Inj* IV Q6H PRN NAUSEA Polyethylene Glycol/Electrolytes 17 gm 09/11/16 11:00 09/12/16 07:48 Miralax* PO 17 gm DAILY CORINNE Administration Temazepam 15 mg 09/08/16 09:02 09/11/16 23:38 Restoril Cap* PO 15 mg BEDTIME PRN Administration INSOMNIA Vital Signs Temp Pulse Resp BP Pulse Ox 98.3 F 104 16 134/66 94 09/12/16 15:16 09/12/16 15:16 09/12/16 15:16 09/12/16 15:16 09/12/16 07:21 Gen: Pt in bed in NAD. HEENT: No Scleral Icterus, Mucous Membranes Moist Neck: Trachea Midline Respiratory: Symmetrical Chest Expansion and Respiratory Effort, Clear to Auscultation, Decreased in right base Cardiovascular: RRR, Normal S1 and S2 Abdominal: NL Sounds; No Tenderness; No Distention Extremities: No Edema Neurological: Alert and Oriented x 3, NL Muscle Strength and Tone Laboratory Results - last 24 hr Laboratory Results - last 24 hr 09/07/16 09/07/16 09/12/16 04:57 20:16 06:16 WBC 12.1 H RBC 3.03 L Hgb 8.7 L Hct 27 L MCV 88 MCH 29 MCHC 33 RDW 13 Plt Count 573 H D MPV 7 L Neut % (Auto) 73.9 Lymph % (Auto) 12.0 L [place] % (Auto) 8.4 Eos % (Auto) 5.4 Baso % (Auto) 0.3 Absolute Neuts (auto) 8.9 H Absolute Lymphs (auto) 1.4 Absolute Monos (auto) 1.0 H Absolute Eos (auto) 0.7 H Absolute Basos (auto) 0 Absolute Nucleated RBC 0 Nucleated RBC % 0 Plasminogen Activity 95 Factor XIII No lysis Factor XIII, Quant Not applicable Sodium Potassium Chloride Carbon Dioxide Anion Gap BUN Creatinine Est GFR ( Amer) Est GFR (Non-Af Amer) BUN/Creatinine Ratio Glucose Calcium Vancomycin Trough 09/12/16 09/12/16 06:16 11:38 WBC RBC Hgb Hct MCV MCH MCHC RDW Plt Count MPV Neut % (Auto) Lymph % (Auto) [place] % (Auto) Eos % (Auto) Baso % (Auto) Absolute Neuts (auto) Absolute Lymphs (auto) Absolute Monos (auto) Absolute Eos (auto) Absolute Basos (auto) Absolute Nucleated RBC Nucleated RBC % Plasminogen Activity Factor XIII Factor XIII, Quant Sodium 134 Potassium 4.0 Chloride 103 Carbon Dioxide 26 Anion Gap 5 BUN 12 Creatinine 0.82 Est GFR ( Amer) 116.3 Est GFR (Non-Af Amer) 90.4 BUN/Creatinine Ratio 14.6 Glucose 109 H Calcium 7.9 L Vancomycin Trough 6.8 09/07/16 09/07/16 09/09/16 12:00 20:16 12:59 Factor VII Activity 81 Fluid Source TNP Fluid LDH TNP Vancomycin Trough 10.8 I/R: Pt is an 80yo M with PMH of CAD, HLD, chronic bronchitis, who presented to ED with c/o bruising and cough, found to have a large right chest wall hematoma and worsening pleural effusion. Pt had thoracentesis with removal of 900 cc of bloody fluid. Pt had chest tube placed by sx, good output, less sanguinous Pt with good output since chest tube placement Rpt CXR from this morning showed improvement with possible basal atlectasis Pt continues to have free flowing bloody fluid, turning more serosanguinous On broad spectrum abx, recommend tapering down and possible d/c Etiology still unclear however suspect secondary to cough and ? trauma during syncope c/w chest tube drainage Would rpt CT chest prior to d/c of chest tube once output over 24 hrs is less than 100cc D/w Dr Calvo
[2016-09-13] MEDS: HYDROcodone/ACETAMIN 5-325 MG* 1 TAB PO PRN (02:13)
[2016-09-13] MEDS: Montelukast Sodium TAB* 10 MG PO SCH (08:26)
[2016-09-13] MEDS: Atorvastatin* 10 MG TAB PO SCH (08:26)
[2016-09-13] MEDS: Docusate CAP* 100 MG PO SCH ×2 (08:26→22:25)
[2016-09-13] MEDS: Polyethylene Glycol 3350* 17 GM PACKET PO SCH (08:27)
--- NOTE | 2016-09-13 12:44 | RAD ---
INDICATION: Pleural effusion follow-up. COMPARISON: September 07, [address] and September 12, 2016 chest radiograph. TECHNIQUE: Multidetector CT images were obtained from the lung apices to the upper abdomen. Evaluation of the viscera is limited without IV contrast. REPORT: There is a fracture through the RIGHT seventh costal cartilage anterolaterally with the distal segment displaced approximate 2 cm anteriorly without change. Surrounding hematoma and soft tissue gas. Associated RIGHT anterolateral chest wall hematoma measures up to 2.6 cm AP by 8.6 cm transverse by 6.7 cm cephalocaudal with interval increase. Additionally there is a nondisplaced fracture at the posterior lateral margin of the RIGHT seventh rib . RIGHT posterior mid to basilar large bore chest tube in place. Small RIGHT pleural effusion including tracking into the major and minor fissure noted with significant interval decrease compared with the prior CT. Innumerable gas bubbles in the RIGHT pleural space. Dense consolidation of the peripheral basilar segments of the RIGHT lower lobe with air bronchograms similar to the prior exam. Multiple small calcified granulomas in the LEFT lung. Grossly clear LEFT pleural space. Median sternotomy wires and postsurgical change of coronary artery bypass. Negative for cardiomegaly or pericardial effusion. 1.1 cm short axis precarinal lymph node without change. Images through the upper abdomen are remarkable for a small hiatal hernia, multiple small calcified splenic granulomas, and a nonobstructing 6 mm mid pole RIGHT renal stone. IMPRESSION: 1. Interval enlargement of RIGHT chest wall hematoma at the interface of the skeletal muscle and subcutaneous tissue plane compared with the September 06, 2016 exam. Hematoma is secondary to fracture of the RIGHT seventh costal cartilage. 2. Interval decrease in volume of RIGHT pleural fluid post RIGHT chest tube placement. Small volume of RIGHT pleural space gas without significant pneumothorax or mediastinal shift. 3. Atelectasis versus pneumonia involving the RIGHT lower lobe basilar segments. 4. Mildly enlarged precarinal mediastinal lymph node without change.
--- NOTE | 2016-09-13 14:21 | PN ---
Subjective Date of Service: 09/13/16 Interval History: HOSPITALIST PROGRESS NOTE Patient seen and examined at bedside. He feels well today, denies pain or dyspnea. On RA now. Family History: Unchanged from Admission Social History: Unchanged from Admission Past Medical History: Unchanged from Admission Objective Active Medications: Acetaminophen (Tylenol Tab*) 650 mg PO Q4H PRN PRN Reason: FEVER/PAIN Last Admin: 09/06/16 20:11 Dose: 650 mg Hydrocodone Bitart/Acetaminophen ([place] 5-325 Tab*) 2 tab PO Q4H PRN PRN Reason: Pain 6-10 Hydrocodone Bitart/Acetaminophen ([place] 5-325 Tab*) 1 tab PO Q4H PRN PRN Reason: Pain 1-5 Last Admin: 09/13/16 02:13 Dose: 1 tab Atorvastatin Calcium (Lipitor*) 10 mg PO DAILY [facility] Last Admin: 09/13/16 08:26 Dose: 10 mg Benzonatate (Tessalon Cap*) 200 mg PO TID PRN PRN Reason: COUGH Last Admin: 09/09/16 11:47 Dose: 200 mg Cyclobenzaprine HCl (Flexeril Tab*) 10 mg PO TID PRN PRN Reason: SPASMS Docusate Sodium (Colace Cap*) 100 mg PO BID [facility] Last Admin: 09/13/16 08:26 Dose: 100 mg Montelukast Sodium (Singulair Tab*) 10 mg PO DAILY [facility] Last Admin: 09/13/16 08:26 Dose: 10 mg Ondansetron HCl (Zofran Inj*) 4 mg IV Q6H PRN PRN Reason: NAUSEA Polyethylene Glycol/Electrolytes (Miralax*) 17 gm PO DAILY [facility] Last Admin: 09/13/16 08:27 Dose: Not Given Temazepam (Restoril Cap*) 15 mg PO BEDTIME PRN PRN Reason: INSOMNIA Last Admin: 09/11/16 23:38 Dose: 15 mg Vital Signs 09/13/16 09/13/16 09/13/16 04:14 07:56 08:00 Temperature 98.6 F 98.0 F Pulse Rate 82 77 Respiratory 20 18 Rate Blood Pressure 126/60 (mmHg) O2 Sat by Pulse 94 92 Oximetry Oxygen Devices in Use Now: None Appearance: Pleasant gentleman sitting up in bed in NAD. Eyes: No Scleral Icterus Ears/Nose/Mouth/Throat: Mucous Membranes Moist Neck: Trachea Midline Respiratory: Symmetrical Chest Expansion and Respiratory Effort, Clear to Auscultation Cardiovascular: NL Sounds; No Murmurs; No JVD, RRR Abdominal: NL Sounds; No Tenderness; No Distention Neurological: Alert and Oriented x 3, NL Muscle Strength and Tone Lines/Tubes/Other Access: Clean, Dry and Intact Peripheral IV Nutrition: Taking PO's Result Diagrams: 09/12/16 06:16 09/12/16 06:16 Assess/Plan/Problems-Billing Assessment: Mr. Demarco is an 80yo M with PMH of CAD, HLD, chronic bronchitis, who presented to ED with c/o bruising and cough, found to have a large right chest wall hematoma and worsening pleural effusion. - Patient Problems (1) Pneumonia Comment: - Will d/c abx. (2) Pleural effusion, right Comment: - Thoracentesis drained 900ml of bloody fluid - cytology negative for malignancy. - He now remembers roughhousing with his grandkinds and both jumped on the right side of his chest. This happened prior to his syncopal episode. - Suspect he ruptured an intercostal blood vessel due to significant cough or trauma (see above), causing his effusion and hematoma. - S/p chest tube placement by Dr. Ferreira 09/08/16. - Tube drained <100ml over the past 24h - check CT chest. - Incentive spirometer. (3) Hypoxia Comment: - Likely secondary to pain and atelectasis as his breathing is shallower today. - Resolved. (4) DVT prophylaxis Comment: - Pharmacological prophylaxis contraindicated in the setting of bleeding. - SCDs. (5) Full code status Status and Disposition: Inpatient. Daughter updated at bedside.
--- NOTE | 2016-09-13 17:34 | PN ---
Progress Note - Progress Note Note: Surgery Progress: S: no c/o. Denies SOB or much pain. O: Vital Signs - 8 hr 09/13/16 15:33 Temperature 98.1 F Pulse Rate 95 Respiratory 16 Rate Blood Pressure 106/58 (mmHg) O2 Sat by Pulse 93 Oximetry Intake and Output Last 24 Hours 09/11/16 09/12/16 09/13/16 09/14/16 06:59 06:59 06:59 06:59 Intake Total 2572 416 1160 280 Output Total 730 275 500 360 Balance 1842 141 660 -80 Intake: IV Fluids 978 30 25 NS (0.9%) 918 25 cefepime 60 30 IVPB 274 266 215 ABX - AZITHROMYCIN 214 ABX - LEVOFLOXACIN 150 157 cefepime 60 116 58 Oral 1320 120 920 280 Output: Chest Tube #1 330 275 10 Urine 400 0 500 350 Other: Estimated Void Medium # Bowel Movements 0 0 0 # Voids 0 0 2 3 Chest: by my view of the Pleurevac, he has had about 100 cc over the past [address] reviewed: much improved (see report); he does have a fx of the R 7th rib His H&H have been stable. A/P: Right chest tube placement for hemothorax, doing well. Chest tube removed w/o incident. Occlusive dsg placed. Instructions reviewed w/ pt and daughter. Per medicine, plan for d/c home 09/14. Will need office f/u w/ us sometime next wk.
[2016-09-13 17:38] LABS: VonWillibrand Factor Activity 332 % (55 - 200)
[2016-09-13 17:39] LABS: Special Coag Interp Performed
--- NOTE | 2016-09-13 20:22 | PN ---
Progress Note - Progress Note Note: Pulm consult f/u note 09/13/16 Pt seen and examined at bedside. Pt reports feeling much better today, no new compalints. Active Medications Generic Name Dose Route Start Last Admin Trade Name Freq PRN Reason Stop Dose Admin Acetaminophen 650 mg 09/06/16 15:35 09/06/16 20:11 Tylenol Tab* PO 650 mg Q4H PRN Administration FEVER/PAIN Hydrocodone Bitart/Acetaminophen 2 tab 09/11/16 09:46 [place] 5-325 Tab* PO Q4H PRN Pain 6-10 Hydrocodone Bitart/Acetaminophen 1 tab 09/11/16 10:06 09/13/16 02:13 [place] 5-325 Tab* PO 1 tab Q4H PRN Administration Pain 1-5 Atorvastatin Calcium 10 mg 09/07/16 09:00 09/13/16 08:26 Lipitor* PO 10 mg DAILY CORINNE Administration Benzonatate 200 mg 09/06/16 15:39 09/09/16 11:47 Tessalon Cap* PO 200 mg TID PRN Administration COUGH Cyclobenzaprine HCl 10 mg 09/10/16 14:37 Flexeril Tab* PO TID PRN SPASMS Docusate Sodium 100 mg 09/11/16 11:00 09/13/16 08:26 Colace Cap* PO 100 mg BID CORINNE Administration Montelukast Sodium 10 mg 09/07/16 09:00 09/13/16 08:26 Singulair Tab* PO 10 mg DAILY CORINNE Administration Ondansetron HCl 4 mg 09/06/16 15:35 Zofran Inj* IV Q6H PRN NAUSEA Polyethylene Glycol/Electrolytes 17 gm 09/11/16 11:00 09/13/16 08:27 Miralax* PO Not Given DAILY CORINNE Temazepam 15 mg 09/08/16 09:02 09/11/16 23:38 Restoril Cap* PO 15 mg BEDTIME PRN Administration INSOMNIA Vital Signs Temp Pulse Resp BP Pulse Ox 98.1 F 95 16 106/58 93 09/13/16 15:33 09/13/16 15:33 09/13/16 15:33 09/13/16 15:33 09/13/16 15:33 Gen: Pt in bed in NAD. HEENT: No Scleral Icterus, Mucous Membranes Moist Neck: Trachea Midline Respiratory: Symmetrical Chest Expansion and Respiratory Effort, Clear to Auscultation, Decreased in right base Cardiovascular: RRR, Normal S1 and S2 Abdominal: NL Sounds; No Tenderness; No Distention Extremities: No Edema Neurological: Alert and Oriented x 3, NL Muscle Strength and Tone Laboratory Results - last 24 hr 09/07/16 20:16 Factor VIII Activity 220 H von Willebrand Activity 332 H von Willebrand Antigen 316 H vWF Panel Interp See comment vWF Panel Reviewed By Christy patel m.d. Coag Profile Interp Performed 09/07/16 09/07/16 09/09/16 12:00 20:16 12:59 Factor VII Activity 81 Fluid Source TNP Fluid LDH TNP Vancomycin Trough 10.8 I/R: Pt is an 80yo M with PMH of CAD, HLD, chronic bronchitis, who presented to ED with c/o bruising and cough, found to have a large right chest wall hematoma and worsening pleural effusion. Pt had thoracentesis with removal of 900 cc of bloody fluid. Pt had chest tube placed by sx, good output, less sanguinous Pt with chest tube output of 100 cc within past [address] chest from this morning showed improvement with possible basal atlectasis , subpleural air, paratracheal node He was also noted to have 6th rib fracture near costo chondral junction For possible d/c tomorrow Needs f/u imaging in 4-5 weeks Etiology still unclear however suspect secondary to cough and ? trauma during syncope D/w Dr Calvo
[2016-09-14 06:34] LABS: Hematocrit 29 % (42-52); Hemoglobin 9.6 g/dl (14.0-18.0); Mean Corpuscular HGB Conc 33 g/dl (31-36); Mean Corpuscular Hemoglobin 29 pg (27-31); Mean Corpuscular Volume 88 fL (80-94); Mean Platelet Volume 7 um3 (7.4-10.4); Red Blood Count 3.31 10^6/ul (4.0-5.4); Red Cell Distribution Width 14 % (10.5-15); White Blood Count 11.2 10^3/ul (3.5-10.8)
[2016-09-14 06:52] LABS: BUN/Creatinine Ratio 15.5 (8-20); Calcium 8.1 mg/dL (8.6-10.3); EGFR African American 113.1 (>60); EGFR Non-African American 87.9 (>60); Potassium 3.9 mmol/L (3.5-5.0)
[2016-09-14 07:45] VITALS: BP 111/64
[2016-09-14] MEDS: Docusate CAP* 100 MG PO SCH (08:13)
[2016-09-14] MEDS: Atorvastatin* 10 MG TAB PO SCH (08:14)
[2016-09-14] MEDS: Montelukast Sodium TAB* 10 MG PO SCH (08:14)
[2016-09-14] MEDS: Polyethylene Glycol 3350* 17 GM PACKET PO SCH (08:15)
[2016-09-14] MEDS ORDERED: Ferrous Sulfate TAB* 325 MG PO SCH (09:00)
[2016-09-14] MEDS ORDERED: Ascorbic Acid TAB* 500 MG PO SCH (09:00)
--- NOTE | 2016-09-15 06:06 | DS ---
DICTATION ENDS ABRUPTLY - CONTINUATION TO FOLLOW DISCHARGE SUMMARY: DATE OF ADMISSION: 09/06/16 DATE OF DISCHARGE: 09/14/16 PRIMARY CARE PROVIDER: Negra Post MD CONSULTING ANIMAL RESEARCHER: Megha Mcclain MD CONSULTING SURGEON: Manuel Ferreira MD DISCHARGE DIAGNOSES: 1. Right lower lobe community-acquired pneumonia, present on admission. 2. Right hemothorax, secondary to trauma. 3. Right seventh rib fracture. DICTATION ENDS ABRUPTLY AT THIS POINT CC: Dr. Post; Dr. Mcclain; Dr. Ferreira * [id number]/[facility] #: [id number] MTDD
--- NOTE | 2016-09-15 10:34 | DS ---
DISCHARGE SUMMARY: DATE OF ADMISSION: 09/07/16 DATE OF DISCHARGE: 09/14/16 ADDENDUM: DISCHARGE DIAGNOSES: The next number should be: 1. Atelectasis. 2. Acute hypoxemic respiratory failure secondary to the above. 3. Acute blood loss anemia. 4. Thrombocytosis. SECONDARY DIAGNOSES: 1. Coronary artery disease, status post CABG. 2. Hyperlipidemia. 3. Chronic bronchitis. 4. Nephrolithiasis. MEDICATION LIST: 1. Acetaminophen 650 mg p.o. q.4 hours p.r.n. mild pain. 2. Albuterol sulfate two puffs inhaled q.6 hours p.r.n. shortness of breath. 3. Vitamin C 500 mg p.o. daily. 4. Benzonatate 200 mg p.o. t.i.d. as needed for cough. 5. Ferrous sulfate 325 mg p.o. daily. 6. Hydrocodone/acetaminophen one tablet p.o. q.6 hours p.r.n. for severe pain, MDD 4. 7. Montelukast 10 mg p.o. daily. 8. Pataday 0.2% q.4 hours p.r.n. to the right eye. 9. Lubricant eyedrops, apply to eyes t.i.d. as needed for dry eyes. 10. Rosuvastatin 5 mg p.o. daily. HOSPITAL COURSE: Mr. Demarco is an 80-year-old male with a past medical history as stated above that had been admitted to [facility] on 08/31 with suspicion of pneumonia, parapneumonic effusion, and syncope. He had improvement of his symptoms and was discharged home on oral antibiotics; however , since discharge, he had noticed progressive worsening of bruising on his right side with worsening pain and dyspnea. He was seen by Dr. Post for scheduled followup, and a CBC had shown that his hemoglobin went from 13 to 9.8 , so he was referred back to the hospital for further evaluation. For more details about this presentation, I refer you to his history and physical. The patient had a CT of the chest, abdomen, and pelvis that showed a moderate-to -large right-sided pleural effusion. Deep to the latissimus dorsi muscle, there is a fluid collection, presumably a hematoma in the chest wall, measuring 13 x 9.8 x 3.4 cm. Additionally, infiltration of fat is noted along the right chest and abdominal wall consistent with hematoma. No obvious rib fractures were identified. Additional fluid is noted around the cartilage of the right sixth and seventh rib. This is consistent with hematoma. The patient was questioned multiple times if he remembered any trauma to the right side of his chest, but he denied it. He did have a syncopal episode at home, but it sounds like he just slumped on the chair. He did not fall. The patient underwent a thoracentesis with drainage of 900 mL of bloody fluid and, after that, a chest tube was placed by Dr. Ferreira. The patient was seen in consultation by Pulmonology (Dr. Mcclain) and she thought that the etiology of the hemothorax or chest wall hematoma was still unclear. We thought that maybe he had so much cough at home that he had ruptured an intercostal artery resulting in bleeding. Fluid cytology showed only red cells and it was negative for malignancy. The patient was treated empirically with vancomycin, cefepime, and levofloxacin for pneumonia with progressive improvement. His cultures were negative, so vancomycin was discontinued and he completed treatment with levofloxacin. After a week's stay in the hospital, the patient remembered that he was playing with his grandkids on the floor and they both jumped on the right side of his chest. That was the same date that he had his syncopal episode. A repeat CT was performed when his chest tube drainage had slowed down and now the CT showed a fracture of the right 7th costal cartilage. The hematoma is still present and there is even a suggestion of increase, but the pleural effusion is much improved, so his chest tube was removed and the patient was thought to be stable for discharge. The patient's hemoglobin dropped from 13 to 9.4, but he has remained stable around 9.5. He did develop some thrombocytosis and this was thought to be secondary to iron-deficiency anemia. He was started on iron and vitamin C. Initially, as we did not know any provoking factors to justify his hematoma and hemothorax, the patient was seen in consultation by Hematology (Dr. Cerna) to see if there was any other cause that could explain his bleeding. Dr. Cerna thought it was very unlikely that the patient would develop a bleeding disorder in his 80s, especially considering that he had a normal PTT and just a slightly elevated INR. Plasminogen activity was 95, factor VII activity is 81, factor VIII activity was 220, and von Willebrand activity was 332, and the impression was there was no laboratory evidence of von Willebrand disease. As described above later on, the patient remembered that he did have trauma to the right chest. The patient initially required oxygen and, as he improved, he was able to maintain an oxygen saturation greater than 98% on room air. He had significant improvement of his breathing and of his pain, and he was felt to be stable for discharge at this time. PHYSICAL EXAMINATION: Vital Signs: Temperature 98.4, heart rate 89, respiratory rate 12, oxygen saturation 93% on room air, and blood pressure 111/ 64. General: The patient is a pleasant elderly male, sitting up in bed, in no acute distress. CVS: Normal S1, S2. Regular rate and rhythm. Chest: Breath sounds decreased in the right base, but no added sounds. Abdomen: Soft. Bowel sounds are present. Skin: The patient has an impressive ecchymosis extending from the right of his chest all the way down to right buttocks and it goes around his abdomen and to his back like a belt. This is still impressive, but has improved significantly from admission. Neuro: He is alert and oriented x3, able to move all 4 extremities. DIET: Heart-healthy diet. ACTIVITIES: As tolerated. The patient was advised to avoid excessive exertion and physical playing with his grandkids. DISPOSITION: To home. STATUS WHILE IN THE HOSPITAL: Inpatient. Please keep in mind that this is a summarized version of this patient's hospital stay. If you need more information, please feel free to call me at or obtain the full medical records. The patient is from [place], but he is staying in [place] until October so he will follow up with Dr. Post and with Dr. Ferreira as outpatient. Dr. Mcclain also recommended repeat image (CT of the chest) in 4 to 6 weeks and follow up with her at that time. The patient was advised and encouraged to continue incentive spirometer. TIME SPENT: Approximately 50 minutes were spent to complete this discharge. [id number]/[facility] #: [id number] PRIYANKA
== END 2016-09-14 10:59 | disposition home or self-care (01) | DRG 199 ==
LOC: ED 12:40 → MEDTELE 14:50 → OBSVTOIN 09-07 15:49
PROVIDERS: ADMIT Hospitalist; ATTEND Internal Medicine
PROC: 0W9930Z Drainage of Right Pleural Cavity with Drainage Device, Percutaneous Approach (ICD-10-PCS; principal; 2016-09-09)
DX: S27.1XXA Traumatic hemothorax, initial encounter (principal); J18.9 Pneumonia, unspecified organism; J96.01 Acute respiratory failure with hypoxia; J90 Pleural effusion, not elsewhere classified; S20.211A Contusion of right front wall of thorax, initial encounter; S22.31XA Fracture of one rib, right side, initial encounter for closed fracture; D62 Acute posthemorrhagic anemia; J94.2 Hemothorax; Z95.1 Presence of aortocoronary bypass graft; I25.10 Atherosclerotic heart disease of native coronary artery without angina pectoris; E78.5 Hyperlipidemia, unspecified; J42 Unspecified chronic bronchitis; Z87.442 Personal history of urinary calculi; Z88.8 Allergy status to other drugs, medicaments and biological substances; Z82.3 Family history of stroke; Z80.52 Family history of malignant neoplasm of bladder; Y92.9 Unspecified place or not applicable; D47.3 Essential (hemorrhagic) thrombocythemia; D50.9 Iron deficiency anemia, unspecified; W50.0XXA Accidental hit or strike by another person, initial encounter
CPT/HCPCS: 32555; 36415; 71010; 71020; 71250; 74176; 80048; 80053; 80202; 82550; 82553; 83605; 83615; 83880; 83986; 84157; 84484; 85014; 85018; 85025; 85230; 85240; 85291; 85390; 85420; 85610; 85730; 86140; 86850; 86900; 86901; 87040; 87070; 87205; 87899; 88112; 89051; 90686; 93005; 94760; 99254; A9270-GY; G0378; J0692; J3370

== ENCOUNTER 2017-12-06 17:45 | Emergency (ER) | payer MEDICARE ==
--- OUTSIDE RECORDS SUMMARY | 2017-12-06 17:59 | XMS REPORT ---
:1935 External Reference #:[id number] Author Organization [facility] Address [address] [place] [address] Phone [phone] Care Team Providers Name Role Phone Negra Post MD Primary Care Physician Unavailable Payers Type Date Identification Numbers Payment Provider Subscriber Medicare Primary Policy Number: [id number] Medicare David Demarco PayID: [id number] [address] [place] [address] [facility] Part B Policy Number: [id number] [facility] David Demarco PayID: [id number] [address] [place] [address] Problems Date Description Provider Status Onset: 09/05/2016 Coronary atherosclerosis Negra Post M.D. Active Onset: 10/05/2016 Hemothorax Megha Mcclain MD Active Family History Date Family Member(s) Problem(s) Comments Father due to Bladder Cancer () Mother due to due to "old age". 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 Cigarette Use Never Smoked Cigarettes ETOH Use Denies alcohol use Smoking Patient has never smoked Recreational Drug Use Denies Drug Use Daily Caffeine Does Not Consume Caffeine Exercise Type/Frequency Exercises regularly General Hx Text Lives in [place] Allergies, Adverse Reactions, Alerts Date Description Reaction Status Severity Comments 09/21/2016 NKDA active Medications Medication Date Status Form Strength Qnty SIG Indications Ordering Provider Pulse Oximeter Misc 1unit use as R09.02 [facility] 2016 s instructed MD Sarahi Rosuvastatin 00/ Active Tablets 20mg 90tab take 1 Negra Calcium 0000 s tablet by Cotton, mouth every M.D. night Montelukast 00/ Active Tablets 10mg 90tab 1 by mouth Negra Sodium 0000 s every day Bella Post. Aspirin Ec / Active Tablets 81mg 1 by mouth Unknown 0000 DR every day Advil 0000/ Active Capsules 200mg as needed Unknown 0000 (pt states rarely) Aspirin /00/ Hx Tablets 81mg 1 by mouth Unknown 0000 - DR every day 2016 Benzonatate / Hx Capsules 200mg take 1 Unknown 0000 capsule by mouth three times a day if needed Levofloxacin / Hx Tablets 250mg 1 by mouth Unknown 0000 - every day 09/15/ until 09/07 2016 Lumigan / Hx Solution 0.01% tid eye Unknown 0000 drops Olopatadine HCL / Hx Solution prn Unknown Eye Drops 0000 Proair / Hx Aerosol 108(90Bas 1-2 Unknown Respiclick 0000 e) inhalations mcg/Act every 4-6 hours Ferrous Sulfate / Hx Tablets 325(65Fe) 1 by mouth Unknown 0000 - DR mg daily 2016 Vitamin C / Hx Tablets 500mg 1 by mouth Unknown 0000 - ER every day 2016 Acetaminophen / Hx Tablets 650mg 1 tab by Unknown ER 0000 - ER mouth q4 02/13/ hours as 2017 needed pain Hydrocodone-Tan / Hx Tablets 5-325mg 1 tablet by Unknown taminophen 0000 - mouth every 10/04/ 6 hours prn 2017 pain Medications Administered in Office Medication Date Status Form Strength Qnty SIG Indications Ordering Provider Influenza,Unsp Administered Injection Unknown ecified 017 Vital Signs Date Vital Result Comment 12/05/2017 Height 67 inches 5'7" per pt Weight 176.00 lb Heart Rate 74 /min BP Systolic Sitting 155 mmHg BP Diastolic Sitting 90 mmHg Body Temperature 98.1 F O2 % BldC Oximetry 94 % BMI (Body Mass Index) 27.6 kg/m2 03/06/2017 Height 67 inches 5'7" per pt Weight 179.25 lb Heart Rate 80 /min BP Systolic 140 mmHg BP Diastolic 90 mmHg Body Temperature 98.0 F O2 % BldC Oximetry 96 % BMI (Body Mass Index) 28.1 kg/m2 02/13/2017 Height 67 inches 5'7" per pt Weight 172.00 lb Heart Rate 72 /min BP Systolic Sitting 138 mmHg Rue reg cuff BP Diastolic Sitting 88 mmHg Rue reg cuff Respiratory Rate 18 /min O2 % BldC Oximetry 96 % On Ra BMI (Body Mass Index) 26.9 kg/m2 10/13/2016 Weight 168.00 lb Heart Rate 66 /min BP Systolic 136 mmHg BP Diastolic 76 mmHg Respiratory Rate 15 /min O2 % BldC Oximetry 99 % 10/05/2016 Height 66 inches 5'6" Weight 167.00 lb Heart Rate 85 /min BP Systolic Sitting 150 mmHg BP Diastolic Sitting 82 mmHg Respiratory Rate 16 /min O2 % BldC Oximetry 98 % BMI (Body Mass Index) 27.0 kg/m2 09/22/2016 Weight 170.75 lb Heart Rate 77 /min BP Systolic Sitting 130 mmHg BP Diastolic Sitting 70 mmHg Respiratory Rate 16 /min Body Temperature 97.3 F O2 % BldC Oximetry 92 % 09/21/2016 Heart Rate 84 /min BP Systolic 132 mmHg BP Diastolic 70 mmHg Respiratory Rate 18 /min Body Temperature 97.5 F 09/05/2016 Weight 183.00 lb Heart Rate 104 /min BP Systolic Sitting 136 mmHg BP Diastolic Sitting 80 mmHg Respiratory Rate 14 /min Body Temperature 102.3 F O2 % BldC Oximetry 96 % Results Test Date Test Result H/L Range Note CBC Auto Diff 10/12/2016 White Blood Count 5.8 10^3/uL 3.5-10.8 Red Blood Count 4.50 10^6/uL 4.0-5.4 Hemoglobin 13.0 g/dL Low 14.0-18.0 Hematocrit 40 % Low 42-52 Mean Corpuscular Volume 89 fL 80-94 Mean Corpuscular Hemoglobin 29 pg 27-31 Mean Corpuscular HGB Conc 33 g/dL 31-36 Red Cell Distribution Width 17 % High 10.5-15 Platelet Count 323 10^3/uL 150-450 Mean Platelet Volume 8 um3 7.4-10.4 Abs Neutrophils 3.4 10^3/uL 1.5-7.7 Abs Lymphocytes 1.6 10^3/uL 1.0-4.8 Abs Monocytes 0.6 10^3/uL 0-0.8 Abs Eosinophils 0.1 10^3/uL 0-0.6 Abs Basophils 0 10^3/uL 0-0.2 Abs Nucleated RBC 0 10^3/uL Granulocyte % 58.6 % 38-83 Lymphocyte % 28.3 % 25-47 Monocyte % 10.3 % High 1-9 Eosinophil % 2.6 % 0-6 Basophil % 0.2 % 0-2 Nucleated Red Blood Cells % 0 Laboratory test 10/12/2016 Erythrocyte Sed Rate 34 mm/Hr 0-40 finding Order 10/05/2016 6 Minute Walk 91 Laboratory test 09/21/2016 Cytology Non-Physical Therapy Supervisor SEE RESULT BELOW 1 finding Body Fluid C&S 09/21/2016 Body Fluid Cult Gram SEE RESULT BELOW 2 Stain Comp Metabolic Panel 09/21/2016 Sodium 139 mmol/L 133-145 Potassium 4.7 mmol/L 3.5-5.0 Chloride 106 mmol/L 101-111 Co2 Carbon Dioxide 26 mmol/L 22-32 Anion Gap 7 mmol/L 2-11 Glucose 92 mg/dL 70-100 Blood Urea Nitrogen 15 mg/dL 6-24 Creatinine 0.96 mg/dL 0.67-1.17 BUN/Creatinine Ratio 15.6 8-20 Calcium 8.8 mg/dL 8.6-10.3 Total Protein 6.6 g/dL 6.4-8.9 Albumin 3.3 g/dL 3.2-5.2 Globulin 3.3 g/dL 2-4 Albumin/Globulin Ratio 1.0 1-3 Total Bilirubin 0.50 mg/dL 0.2-1.0 Alkaline Phosphatase 92 U/L 34-104 Alt 39 U/L 7-52 Ast 25 U/L 13-39 Egfr Non- 75.4 >60 Egfr 96.9 >60 3 Iron & Iron Binding Capacity 09/21/2016 Iron 39 g/dL Low 50-212 Unsaturated Iron Binding 212 g/dL Total Iron Binding Capacity 251 g/dL 250-450 % Iron Saturation 16 % 15-55 Laboratory test finding 09/21/2016 Ferritin 557.3 ng/mL High 24-336 Vitamin B12 536 pg/mL 180-914 4 CBC Auto Diff 09/21/2016 White Blood Count 9.0 10^3/uL 3.5-10.8 Red Blood Count 3.76 10^6/uL Low 4.0-5.4 Hemoglobin 11.0 g/dL Low 14.0-18.0 Hematocrit 33 % Low 42-52 Mean Corpuscular Volume 89 fL 80-94 Mean Corpuscular Hemoglobin 29 pg 27-31 Mean Corpuscular HGB Conc 33 g/dL 31-36 Red Cell Distribution Width 14 % 10.5-15 Platelet Count 674 10^3/uL High 150-450 Mean Platelet Volume 7 um3 Low 7.4-10.4 Abs Neutrophils 6.4 10^3/uL 1.5-7.7 Abs Lymphocytes 1.4 10^3/uL 1.0-4.8 Abs Monocytes 0.9 10^3/uL High 0-0.8 Abs Eosinophils 0.3 10^3/uL 0-0.6 Abs Basophils 0.1 10^3/uL 0-0.2 Abs Nucleated RBC 0 10^3/uL Granulocyte % 71.0 % 38-83 Lymphocyte % 15.6 % Low 25-47 Monocyte % 9.5 % High 1-9 Eosinophil % 3.3 % 0-6 Basophil % 0.6 % 0-2 Nucleated Red Blood Cells % 0 Laboratory test finding 09/21/2016 Erythrocyte Sed Rate 111 mm/Hr High 0- 40 CBC Auto Diff 09/06/2016 White Blood Count 16.7 10^3/uL High 3.5-10.8 Red Blood Count 3.27 10^6/uL Low 4.0-5.4 Hemoglobin 9.8 g/dL Low 14.0-18.0 Hematocrit 30 % Low 42-52 Mean Corpuscular Volume 91 fL 80-94 Mean Corpuscular Hemoglobin 30 pg 27-31 Mean Corpuscular HGB Conc 33 g/dL 31-36 Red Cell Distribution Width 14 % 10.5-15 Platelet Count 456 10^3/uL High 150-450 Mean Platelet Volume 7 um3 Low 7.4-10.4 Abs Neutrophils 13.4 10^3/uL High 1.5-7.7 Abs Lymphocytes 1.4 10^3/uL 1.0-4.8 Abs Monocytes 1.5 10^3/uL High 0-0.8 Abs Eosinophils 0.3 10^3/uL 0-0.6 Abs Basophils 0.1 10^3/uL 0-0.2 Abs Nucleated RBC 0.01 10^3/uL Granulocyte % 80.3 % 38-83 Lymphocyte % 8.4 % Low 25-47 Monocyte % 8.9 % 1-9 Eosinophil % 2.1 % 0-6 Basophil % 0.3 % 0-2 Nucleated Red Blood Cells % 0 Laboratory test finding 09/06/2016 B-Type Natriuretic Peptide 68 pg/mL 5 BNP Comp Metabolic Panel 09/06/2016 Sodium 135 mmol/L 133-145 Potassium 4.1 mmol/L 3.5-5.0 Chloride 102 mmol/L 101-111 Co2 Carbon Dioxide 27 mmol/L 22-32 Anion Gap 6 mmol/L 2-11 Glucose 97 mg/dL 70-100 Blood Urea Nitrogen 18 mg/dL 6-24 Creatinine 1.10 mg/dL 0.67-1.17 BUN/Creatinine Ratio 16.4 8-20 Calcium 8.5 mg/dL Low 8.6-10.3 Total Protein 6.4 g/dL 6.4-8.9 Albumin 3.2 g/dL 3.2-5.2 Globulin 3.2 g/dL 2-4 Albumin/Globulin Ratio 1.0 1-3 Total Bilirubin 1.80 mg/dL High 0.2-1.0 Alkaline Phosphatase 70 U/L 34-104 Alt 33 U/L 7-52 Ast 47 U/L High 13-39 Egfr Non- 64.4 >60 Egfr 82.8 >60 6 Laboratory test finding 09/06/2016 Partial Thrombo Time 29.2 seconds 26.0 -36.3 PTT Lactic Acid 1.4 mmol/L 0.5-2.0 7 Blood Culture SEE RESULT BELOW 8 Inr/Protime 09/06/2016 Inr 1.21 High 0.89-1.11 CKMB 09/06/2016 CKMB ng/mL 3.1 ng/mL 0.6-6.3 Laboratory test finding 09/06/2016 Creatine Kinase(CK) 213 U/L 10-223 Troponin-I (TnI) 0.00 ng/mL <0.04 9 Laboratory test finding 09/05/2016 C Reactive Protein 231.33 mg/L High < 5.00 10 Basic Metabolic Panel 09/05/2016 Sodium 134 mmol/L 133-145 Potassium 4.1 mmol/L 3.5-5.0 Chloride 102 mmol/L 101-111 Co2 Carbon Dioxide 26 mmol/L 22-32 Anion Gap 6 mmol/L 2-11 Glucose 108 mg/dL High 70-100 Blood Urea Nitrogen 16 mg/dL 6-24 Creatinine 1.13 mg/dL 0.67-1.17 BUN/Creatinine Ratio 14.2 8-20 Calcium 8.2 mg/dL Low 8.6-10.3 Egfr Non- 62.4 >60 Egfr 80.3 >60 11 CBC Auto Diff 09/05/2016 White Blood Count 16.4 10^3/uL High 3.5-10.8 Red Blood Count 3.13 10^6/uL Low 4.0-5.4 Hemoglobin 9.4 g/dL Low 14.0-18.0 Hematocrit 28 % Low 42-52 Mean Corpuscular Volume 91 fL 80-94 Mean Corpuscular Hemoglobin 30 pg 27-31 Mean Corpuscular HGB Conc 33 g/dL 31-36 Red Cell Distribution Width 14 % 10.5-15 Platelet Count 403 10^3/uL 150-450 Mean Platelet Volume 8 um3 7.4-10.4 Abs Neutrophils 13.4 10^3/uL High 1.5-7.7 Abs Lymphocytes 1.4 10^3/uL 1.0-4.8 Abs Monocytes 1.2 10^3/uL High 0-0.8 12 Abs Eosinophils 0.3 10^3/uL 0-0.6 Abs Basophils 0.1 10^3/uL 0-0.2 Abs Nucleated RBC 0.13 10^3/uL Granulocyte % 81.6 % 38-83 Lymphocyte % 8.6 % Low 25-47 Monocyte % 7.1 % 1-9 Eosinophil % 1.8 % 0-6 Basophil % 0.9 % 0-2 Nucleated Red Blood Cells % 0.8 1 SEE RESULT BELOW Name: DAVID DEMARCO : [address]: Manuel Ferreira MD Acct: [id number] Unit: [id number] AGE: 80 Location[place] [facility] [place] Re09/21/16 SEX: M Status: REG REF SPEC: [id number] HARIKA: 09/21/16-1629 [facility] DR: Manuel Ferreira MD REQ: [id number] RECD: 09/21/16172 STATUS: PENNY SILVERMAN DR: Zaida Valencia MD _ ORDERED: NG THIN LAYER FINAL DIAGNOSIS Pleural effusion, thoracentesis: --Negative for malignant cells. --Inflammation. 1. PLEURAL - PLEURAL FLUID GROSS DESCRIPTION 175 mls of cloudy red orange fluid. Signed (signature on file) Raul Guillermo MD 1342 END OF REPORT * ML=Testing performed at Main Lab DEPARTMENT OF PATHOLOGY, [address] [place] [address] Raul Guillermo M.D. Director [facility] # [id number] 2 SEE RESULT BELOW Name: DAVID DEMARCO : [address]: Manuel Ferreira MD Acct: [id number] Unit: [id number] AGE: 80 Location: [facility] Re09/21/16 SEX: M Status: REG REF SPEC: [id number] HARIKA: 09/21/[address]: Manuel Ferreira MD REQ: [id number] RECD: 09/21/16 STATUS: COMP [facility] DR: Negra Post MD _ SOURCE: PLEURAL FL SPDESC: ORDERED: BF Steve/GS Procedure Result Reported Site Body Fluid Gram Stain Final 09/22/16- 953 ML 1+ Neutrophils 2+ Nucleated Cells No Organisms Seen Preparation By Cytospin Smear Body Fluid Culture Final 09/25/16- 833 ML No Growth Day 4 * ML - MAIN LAB ([facility]) . END OF REPORT * ML=Testing performed at Main Lab DEPARTMENT OF PATHOLOGY, [address] [place] [address] Raul Guillermo M.D. Director [facility] # [id number] 3 Because ethnic data is not always readily available, this report includes an eGFR for both -Americans and non- Americans. The National Kidney Disease Education Program (NKDEP) does not endorse the use of the MDRD equation for patients that are not between the ages of 18 and 70, are , have extremes of body size, muscle mass, or nutritional status, or are non- or non-. According to the National Kidney Foundation, irrespective of diagnosis, the stage of the disease is based on the level of kidney function: Stage Description GFR(mL/min/1.73 m(2)) 1 Kidney damage with normal or decreased GFR 90 2 Kidney damage with mild decrease in GFR 60-89 3 Moderate decrease in GFR 30-59 4 Severe decrease in GFR 15-29 5 Kidney failure <15 (or dialysis) 4 Normal Range 180 to 914 Indeterminate Range 145 to 180 Deficient Range <145 5 >100 to <200 pg/mL: likely compensated congestive heart failure (CHF) 200 to 400 pg/mL: likely moderate CHF >400 pg/mL: likely moderate to severe CHF 6 Because ethnic data is not always readily available, this report includes an eGFR for both -Americans and non- Americans. The National Kidney Disease Education Program (NKDEP) does not endorse the use of the MDRD equation for patients that are not between the ages of 18 and 70, are , have extremes of body size, muscle mass, or nutritional status, or are non- or non-. According to the National Kidney Foundation, irrespective of diagnosis, the stage of the disease is based on the level of kidney function: Stage Description GFR(mL/min/1.73 m(2)) 1 Kidney damage with normal or decreased GFR 90 2 Kidney damage with mild decrease in GFR 60-89 3 Moderate decrease in GFR 30-59 4 Severe decrease in GFR 15-29 5 Kidney failure <15 (or dialysis) 7 [facility] Severe Sepsis and Septic Shock Management Bundle Measure requires all lactic acids initially measuring >2.0 mmol/L be repeated. 8 SEE RESULT BELOW Name: GUICHODAVID Perri : [address]: Ronda Wood MD Acct: [id number] Unit: [id number] AGE: 80 Location: [place] [address] Re09/07/16 SEX: M Status: ADM IN SPEC: [id number] HARIKA: 09/06/16-1445 [facility] DR: Pablo Gan MD REQ: [id number] RECD: 09/06/16150 STATUS: RICKI SILVERMAN DR: Negra Post MD _ SOURCE: BLOOD,VENO SPDESC: ORDERED: Blood Cult Procedure Result Reported Site Aerobic Culture Bottle Final 09/11/16- 1506 ML No Growth Day 5 Anaerobic Culture Bottle Final 09/11/16- 1506 ML No Growth Day 5 * ML - MAIN LAB ([facility]) . END OF REPORT * ML=Testing performed at Main Lab DEPARTMENT OF PATHOLOGY, [address] [place] [address] Raul Guillermo M.D. Director [facility] # [id number] 9 99th percentile=0.04 ng/mL Troponin results at [facility] and [facility] are not interchangeable. 10 Acute inflammation: >10.00 11 Because ethnic data is not always readily available, this report includes an eGFR for both -Americans and non- Americans. The National Kidney Disease Education Program (NKDEP) does not endorse the use of the MDRD equation for patients that are not between the ages of 18 and 70, are , have extremes of body size, muscle mass, or nutritional status, or are non- or non-. According to the National Kidney Foundation, irrespective of diagnosis, the stage of the disease is based on the level of kidney function: Stage Description GFR(mL/min/1.73 m(2)) 1 Kidney damage with normal or decreased GFR 90 2 Kidney damage with mild decrease in GFR 60-89 3 Moderate decrease in GFR 30-59 4 Severe decrease in GFR 15-29 5 Kidney failure <15 (or dialysis) 12 Consistent with previous results on 09/01/16. Procedures Date CPT Code Description Status 10/05/2016 35544 Pulmonary Stress Test Simple Completed 09/08/2016 16512 Tube,Thoracostomy,Incl Water S Completed 08/31/2016 37715 ECHO Transthorasic Realtime 2D W Doppler & Color Flow Completed Hosp Encounters Type Date Location Provider CPT E/M Dx Office Visit 03/06/2017 [facility] Negra Post 11540 J94.2 9:00a - Storm Trevizo E78.5 D64.9 Office Visit 02/13/2017 3:15p [facility] [place] [address] J94.2 [facility] Office Visit 10/13/2016 7:40a [facility] Negra Post 06089 J94.2 - Storm Trevizo D64.9 Office Visit 10/05/2016 7:30a [facility] [place] [address] J94.2 [facility] S22.31xA R09.02 Office Visit 09/22/2016 2:00p [facility] Negra Post 98598 J18.1 - Storm Trevizo J94.2 Office Visit 09/21/2016 10:30a [facility] Fer[facility], [address] J18.1 Edis Trevizo J94.2 Z48.02 Office Visit 09/13/2016 11:21a [facility] [place] [address] J94.2 [facility] S22.31xA J90 J98.11 Office Visit 09/13/2016 7:00a [facility] [place] Nolan, 03864 J94.2 [facility] Office Visit 09/12/2016 11:21a [facility] [place] [address] J90 [facility] J94.2 J98.11 R05 Office Visit 09/11/2016 7:00a [facility] Rudi Kevin, 26404 J94.2 [facility] Office Visit 09/10/2016 7:00a [facility] Kevin, 88545 J94.2 [facility] Office Visit 09/09/2016 11:21a [facility] [place] [address] J90 [facility] J94.2 R05 R55 Office Visit 09/07/2016 11:20a [facility] [place] [address] J90 [facility] J98.11 R05 R55 D72.829 R71.0 Office Visit 09/07/2016 10:11a [facility] Ronda Sarah, 08377 J18.1 Hospitalists MAshly I25.10 T14.8 Office Visit 09/07/2016 7:00a [facility] C[place] Nolan, [address]45[address] J90 [facility] Office Visit 09/07/2016 7:00a [facility] [place] [place], 51046 J90 [facility] R55 R23.3 Office Visit 09/06/2016 10:10a [facility], Rejijaguar Johnson, 56596 J18.1 Hospitalists N.P. T14.8 I25.10 E78.5 Office Visit 09/05/2016 1:20p [facility] Negra Post M.D. 98783 J90 - Storm J18.9 D64.9 R23.3 Office Visit 08/31/2016 1:23p [facility], Idris Ivan, 317[address] J90 Hospitalists Santhosh R55 I25.10 Plan of Care Future Appointment(s):02/14/2018 10:45 am - Megha Mcclain MD at [facility]12/05/2017 - Negra Post M.D.R10.11 Right upper quadrant painNew Xrays:US Abdomen EtntlygH72.9 Disorder of the skin and subcutaneous tissue, unspecifiedReferral:Simón Méndez MD, Dermatology
[2017-12-06 19:37] LABS: ABS Basophils 0 10^3/ul (0-0.2); ABS Eosinophils 0 10^3/ul (0-0.6); ABS Lymphocytes 1.6 10^3/ul (1.0-4.8); ABS Monocytes 1.3 10^3/ul (0-0.8); ABS Neutrophils 8.6 10^3/ul (1.5-7.7); ABS Nucleated RBC 0 10^3/ul; Eosinophil % 0.4 % (0-6); Hematocrit 47 % (42-52); Hemoglobin 16.1 g/dl (14.0-18.0); Mean Corpuscular HGB Conc 34 g/dl (31-36); Mean Corpuscular Hemoglobin 31 pg (27-31); Mean Corpuscular Volume 90 fL (80-94); Mean Platelet Volume 7.9 um3 (7.4-10.4); Nucleated Red Blood Cells % 0; Platelet Count 253 10^3/ul (150-450); Red Blood Count 5.21 10^6/ul (4.00-5.40); Red Cell Distribution Width 13 % (10.5-15); White Blood Count 11.7 10^3/ul (3.5-10.8)
[2017-12-06 20:07] LABS: EGFR Non-African American 27.8 (>60)
--- NOTE | 2017-12-06 21:15 | ED ---
Abdominal Pain/Male - HPI Summary HPI Summary: This is annie Hodge documenting for attending Dr. Cher Paniagua MD. A 82 y/o male presents to ED c/o RLQ pain for the past couple days. Currently, the patient has mild pain/tenderness coupled with bloating, reaching 3/10 in severity, however he stated "today has been a good day". According to the patient, the pain started on 12/04/2017, and it is localized, however, sometimes it radiates to his side making it difficult to sleep. He noted that the repercussions of the pain are everywhere over his abdomen as he has nausea and bloating. He stated his last bowel movement was yesterday, but he was constipated which was unusual. Pt denies any radiation of pain to groin area, however has had appetite changes due to pain. His last meal was soup and crackers. He noted that most of the time his appetite consists of lots of fruits such as bananas. It was noted that the patient had a US done in [place] as per request by PCP, Dr. Post. He has an appointment with Dr. Post next week. The results are below. SHx of no ETOH. In the ED room, the patient has a pulse of 85 BPM, O2 saturation of 94% and blood pressure is 150/86. US taken in [place], [place] on 12/06/2017 Impression: Suspect Hepatic steatosis. Bilateral renal cysts as described. Bilateral renal calculi. There is mild fullness of the right renal collecting system but no syeda hydronephrosis. This is annie Hodge documenting for attending Dr. Izzy Hameed MD. Pt and are from [place] who are visiting their daughter in [place]. Pt noted that he had multiple kidney stones including whether they had to go up and receive the stone on the right and nephrolithiasis. Pt had a Urologist in 2013, but since then he has had none. Pt denies any fever and burning/pain with urination. His pain is controlled. PCP is Dr. Post. No DM. - History of Current Complaint Chief Complaint: EDFlankJerman Stated Complaint: FLANK PAIN Time Seen by Provider: 12/06/17 21:04 Hx Obtained From: Patient Onset/Duration: Sudden Onset - 3 days ago, Still Present - Mild pain currently Severity Currently: Mild Pain Intensity: 3 Pain Scale Used: 0-10 Numeric Location: Discrete At: RLQ - Does sometimes radiate to side. Radiates: Yes Radiates to: Flank - right Aggravating Factor(s): Nothing Alleviating Factor(s): Nothing Associated Signs And Symptoms: Positive: Constipation, Decreased Appetite, Nausea. Negative: Urinary Symptoms - Allergies/Home Medications Allergies/Adverse Reactions: Allergies Allergy/AdvReac Type Severity Reaction Status Date / Time No Known Allergies Allergy Verified 09/21/16 16:08 Home Medications: Home Medications Aspirin [Adult Aspirin] 81 mg PO BEDTIME 12/06/17 [History Confirmed 12/06/17] Rosuvastatin (NF) [Crestor (NF)] 10 mg PO DAILY 12/06/17 [History Confirmed ] PMH/Surg Hx/FS Hx/Imm Hx Cardiovascular History: Reports: Hx Coronary Artery Disease, Hx Hypercholesterolemia, Other Cardiovascular Problems/Disorders - CAD/ HYPERCHOLESTEROLEMIA Denies: Hx Hypertension Respiratory History: Reports: Hx Chronic Bronchitis, Hx Pneumonia, Other Respiratory Problems/Disorders - PNA. PLEURAL EFFUSION AND RT CHEST TUBE 08/2016. History: Reports: Hx Kidney Stones Sensory History: Denies: Hx Contacts or Glasses, Hx Hearing Aid Opthamlomology History: Denies: Hx Contacts or Glasses - Surgical History Surgery Procedure, Year, and Place: CABG x3, lithotripsy, cystoscopy Infectious Disease History: No Infectious Disease History: Reports: History Other Infectious Disease - viral conjunctivitis per dr. gaffney Denies: Traveled Outside the [place] in Last 30 Days - Family History Known Family History: Negative: Cardiac Disease, Hypertension, Diabetes - Social History Alcohol Use: None Hx Substance Use: No Substance Use Type: Reports: None Hx Tobacco Use: No Smoking Status (MU): Never Smoked Tobacco Review of Systems Negative: Fever Positive: Abdominal Pain - RLQ, Other - POSITIVE: Constipation, bloatin, appetite changes All Other Systems Reviewed And Are Negative: Yes Physical Exam - Summary Physical Exam Summary: Appearance: Well-appearing, Well-nourished Skin: Warm Eyes: Normal ENT: Normal Neck: Supple, nontender Respiratory: Clear to auscultation Cardiovascular: Regular rate, regular rhythm. Normal S1, S2. Abdomen: Diffuse abdominal distension. Dense palpation and auscultation. Mild RUQ/flank tenderness. No rebound or guarding. Musculoskeletal: Normal, Strength/ROM Intact Neurological: Normal, A&Ox3 Psychiatric: Normal General: No acute distress Triage Information Reviewed: Yes Vital Signs On Initial Exam: Initial Vitals Temp Pulse Resp BP Pulse Ox 99 F 90 18 137/88 99 12/06/17 17:48 12/06/17 17:48 12/06/17 17:48 12/06/17 17:48 12/06/17 17:48 Vital Signs Reviewed: Yes Diagnostics - Vital Signs Vital Signs Temp Pulse Resp BP Pulse Ox 12/06/17 19:54 99.6 F 92 16 146/83 94 12/06/17 17:48 99 F 90 18 137/88 99 - Laboratory Lab Results: Lab Results 12/06/17 12/06/17 Range/Units 19:32 19:32 WBC 11.7 H (3.5-10.8) 10^3/ul RBC 5.21 (4.00-5.40) 10^6/ul Hgb 16.1 (14.0-18.0) g/dl Hct 47 (42-52) % MCV 90 (80-94) fL MCH 31 (27-31) pg MCHC 34 (31-36) g/dl RDW 13 (10.5-15) % Plt Count 253 (150-450) 10^3/ul MPV 7.9 (7.4-10.4) um3 Neut % (Auto) 73.9 (38-83) % Lymph % (Auto) 14.0 L (25-47) % Mckean % (Auto) 11.3 H (0-7) % Eos % (Auto) 0.4 (0-6) % Baso % (Auto) 0.4 (0-2) % Absolute Neuts (auto) 8.6 H (1.5-7.7) 10^3/ul Absolute Lymphs (auto) 1.6 (1.0-4.8) 10^3/ul Absolute Monos (auto) 1.3 H (0-0.8) 10^3/ul Absolute Eos (auto) 0 (0-0.6) 10^3/ul Absolute Basos (auto) 0 (0-0.2) 10^3/ul Absolute Nucleated RBC 0 10^3/ul Nucleated RBC % 0 Sodium 139 (135-145) mmol/L Potassium 4.3 (3.5-5.0) mmol/L Chloride 104 (101-111) mmol/L Carbon Dioxide 24 (22-32) mmol/L Anion Gap 11 (2-11) mmol/L BUN 26 H (6-24) mg/dL Creatinine 2.27 H (0.67-1.17) mg/dL Est GFR ( Amer) 33.6 (>60) Est GFR (Non-Af Amer) 27.8 (>60) BUN/Creatinine Ratio 11.5 (8-20) Glucose 92 (70-100) mg/dL Calcium 9.2 (8.6-10.3) mg/dL Total Bilirubin 0.90 (0.2-1.0) mg/dL AST 19 (13-39) U/L ALT 19 (7-52) U/L Alkaline Phosphatase 71 (34-104) U/L Total Protein 7.9 (6.4-8.9) g/dL Albumin 4.5 (3.2-5.2) g/dL Globulin 3.4 (2-4) g/dL Albumin/Globulin Ratio 1.3 (1-3) Result Diagrams: 12/06/17 19:32 12/06/17 19:32 Lab Statement: Any lab studies that have been ordered have been reviewed, and results considered in the medical decision making process. - Radiology Abdomen XR Radiology Interpretation Completed By: ED Physician - Kidney stones on the right , no obstruction. - CT CT A/P CT Interpretation Completed By: Radiologist - 1. 6 cm calculus in the right distal ureter just proximal to the right ureterovesical junction, a 9 mm calculus in the right proximal ureter distal to the right ureteropelvic junction , a 20 mm calculus in the right ureteropelvic junction, and moderate right hydronephrosis. 2. Bilateral nephrolithiasis. 3. Severely enlarged prostate gland. 4. Colonic diverticulosis without evidence for diverticulitis. 5. Normal appendix. ED physician reviewed this radiology report. Re-Evaluation - Re-Evaluation First Eval Re-Evaluation Time: 12:58 Comment: Pt wants Tylenol for pain. Waiting for CAT scan results. Abdominal Pain Fem Course/Dx - Course Course Of Treatment: A 82 y/o male presents to ED c/o RLQ pain for the past couple days. Currently, the patient has mild pain/tenderness coupled with bloating, reaching 3/[address] A/P revealed 1. 6 cm calculus in the right distal ureter just proximal to the right ureterovesical junction, a 9 mm calculus in the right proximal ureter distal to the right ureteropelvic junction , a 20 mm calculus in the right ureteropelvic junction, and moderate right hydronephrosis. 2. Bilateral nephrolithiasis. 3. Severely enlarged prostate gland. 4. Colonic diverticulosis without evidence for diverticulitis. 5. Normal appendix. A Abdominal XR revealed kidney stones on the right, no obstruction. In the ED course, the patient recieved Tylenol. Patient care was discussed with Dr. Reyes who recommends patient be discharged and follow up in the morning. Pt will be discharged with a diagnosis of renal calculi. Pt is to follow up with Urology in the morning. Pt is agreeable with this plan. - Diagnoses Provider Diagnoses: Kidney stones - Provider Notifications Discussed Care Of Patient With: Fazal Reyes Time Discussed With Above Provider: 00:51 Instructed by Provider To: Other - Definite follow up in the AM. Patient can be discharged. Discharge - Sign-Out/Discharge Documenting (check all that apply): Patient Departure - DISCHARGE Signing out patient TO: Izzy Hameed - 8000 Receiving patient FROM: Cher Paniagua - Discharge Plan Condition: Stable Disposition: TRANSFERRED TO [facility] Patient Education Materials: Kidney Stones (ED) Referrals: Negra Post MD [Primary Care Provider] - Fazal Reyes MD [Medical Doctor] - 1 Day (FOLLOW UP WITH UROLOGY IN THE MORNING) Additional Instructions: RETURN TO ED FOR ANY NEW OR WORSENING SYMPTOMS.
[2017-12-06 23:03] LABS: Urine Red Blood Cell 3+(>10/hpf) (Absent); Urine White Blood Cell Trace(0-5/hpf) (Absent)
[2017-12-06 23:12] LABS: Urine Appearance Clear; Urine Blood 3+ (Negative); Urine Color Yellow; Urine Ketones Negative (Negative); Urine Protein 1+(30 mg/dL) (Negative); Urine Urobilinogen Negative (Negative)
[2017-12-06] MEDS ORDERED: Acetaminophen TAB* 325 MG PO ONE (23:57)
[2017-12-07 01:31] VITALS: BP 130/85
--- NOTE | 2017-12-07 08:24 | RAD ---
INDICATION: Right lower quadrant pain COMPARISON: CT chest/abdomen/pelvis 2016 TECHNIQUE: Noncontrast axial source images were acquired from the level hemidiaphragms to the symphysis pubis as part of CT imaging for renal stone. Lung bases: The lung bases are clear. There is a partially imaged and enlarged epicardial lymph node or perhaps a pericardial cyst measuring 1.9 cm, unchanged. This stable for [address] imaging follow-up in 6 months. Liver: The liver is normal in size. Noncontrast imaging shows no evidence of a hepatic mass or ductal dilatation. There is a tiny calcified granuloma Gallbladder: There are no calcified gallstones. There is no evidence of wall thickening or pericholecystic fluid.. Spleen: The spleen is normal in size. The noncontrast CT appearance is remarkable for multiple splenic granulomas. Pancreas: Noncontrast imaging shows no pancreatic mass or ductal dilitation. Adrenal glands: No masses are identified. Kidneys/Bladder: There are multiple bilateral renal calculi. There is a 6 mm calculus near the right UVJ and a 9 mm calculus in the proximal right ureter. There is a 19 mm calculus in the renal pelvis. There are 3 closely opposed calculi in the upper pole which collectively measure 2 cm. There are moderate right-sided obstructive findings. On the left there are numerous renal calculi the largest of which measures 10 mm. There is no obstruction. There are renal cysts bilaterally. The dominant cyst is in the upper pole and the right and measures 5 cm. Adenopathy: There is no evidence of intraperitoneal or retroperitoneal adenopathy. Evaluation is limited without oral contrast. Fluid collections: There are no free or localized fluid collections. Vessels: The aorta and iliac vessels are normal in caliber. There are no significant atherosclerotic changes. The IVC appears normal Pelvic organs: The prostate is markedly enlarged measuring 7.0 x 6.9 cm in transverse dimensions, unchanged GI tract: Evaluation of the bowel is limited without oral contrast. There is a small hiatal hernia. The upper GI tract is otherwise unremarkable. There are scattered diverticula of the colon. There are no CT findings of acute diverticulitis There are no obstructive findings. The appendix is visualized and appears normal. Soft tissues: No soft tissue abnormalities of the extraperitoneal abdomen or pelvis are identified. Osseous structures: There are no acute osseous findings. IMPRESSION: 1. Stable epicardial lymph node or pericardial cyst. Suggest further follow-up. 2. Bilateral nephrolithiasis with obstruction as described. 3. Markedly enlarged prostate. 4. Scattered diverticula
--- NOTE | 2017-12-07 08:46 | RAD ---
HISTORY: bloating COMPARISONS: September 06, 2016 VIEWS: Frontal supine and upright views of the abdomen. FINDINGS: BOWEL: There is a nonobstructive bowel gas pattern. There is a moderate amount of stool within the colon. CALCULI: There are multiple calculi of the renal parenchymal shadow as bilaterally measuring up to 1.7 cm. BONES AND SOFT TISSUES: Degenerative changes are noted. The patient is status post median sternotomy. OTHER FINDINGS: The lung bases are clear. There is no subphrenic gas. IMPRESSION: NONOBSTRUCTIVE BOWEL GAS PATTERN. BILATERAL NEPHROLITHIASIS. R2
== END 2017-12-07 01:31 | disposition short-term general hospital (02) ==
LOC: ED 17:45
DX: N13.2 Hydronephrosis with renal and ureteral calculous obstruction (principal); N40.0 Benign prostatic hyperplasia without lower urinary tract symptoms; K57.30 Diverticulosis of large intestine without perforation or abscess without bleeding; I25.10 Atherosclerotic heart disease of native coronary artery without angina pectoris; Z95.1 Presence of aortocoronary bypass graft; Z87.442 Personal history of urinary calculi; Z79.82 Long term (current) use of aspirin; R10.11 Right upper quadrant pain; N28.1 Cyst of kidney, acquired; N20.0 Calculus of kidney
CPT/HCPCS: 36415; 74019; 74176; 80053; 81003; 85025; 99283; A9270-GY

== ENCOUNTER 2017-12-08 07:52 | Day surgery (SDC) | payer MEDICARE ==
--- NOTE | 2017-12-07 15:55 | HP ---
CC: Dr. Post * ADMITTING HISTORY AND PHYSICAL: DATE OF ADMISSION: 12/08/17 ADMITTING DIAGNOSES: 1. Right hydronephrosis. 2. Multiple right ureteral calculi. 3. Multiple right renal calculi. PLANNED PROCEDURE: Right stent insertion, possible ureteroscopy and laser ( possibly to be followed by lithotripsy). SURGEON: Dr. Fazal Reyes. ADMITTING HISTORY AND PHYSICAL: Grupo Demarco is an 82-year-old gentleman with a history of recurrent bilateral renal calculi. He had previously been treated in [place] and at one point had required percutaneous nephrolithotripsy because of large left-sided calculi. He had presented to the emergency room on 12/06/17 with complaints of right plank pain and was noted on CT scan to have a 6-mm calculus in the distal right ureter and a 9 to 10 mm calculus in the proximal right ureter with an additional almost 2- cm calculus in the renal pelvis. In addition, he has multiple bilateral renal calculi. I discussed the situation in detail with him and have explained to him that because of the very large size of the calculus in the renal pelvis, it may not be feasible to place a stent and he may require placement of a nephrostomy tube. PAST MEDICAL HISTORY: Significant for coronary artery disease, high cholesterol. MEDICATIONS: Include: 1. Crestor 10 mg daily. 2. Aspirin 81 mg daily. 3. Singulair 10 mg daily. ALLERGIES: No known drug allergies. PAST SURGICAL HISTORY: Significant for, 1. Coronary artery bypass graft. 2. Left ureteroscopy. 3. Percutaneous nephrolithotripsy for left renal calculi in 2013. SMOKING HISTORY: He is a nonsmoker. FAMILY HISTORY: Negative for stones. REVIEW OF SYSTEMS: He is otherwise in excellent health. He denies any chest pain or shortness of breath. There is no history of diabetes mellitus or any other major systemic illness. PHYSICAL EXAMINATION GENERAL: Reveals a pleasant healthy-appearing elderly gentleman. VITAL SIGNS: Blood pressure 120/70, pulse 76 per minute, regular. Temperature 96.5, oxygen saturation 97% on room air. LUNGS: Clear bilaterally. CARDIOVASCULAR: Regular rate and rhythm. S1, S2. ABDOMEN: Soft with right flank tenderness. IMAGING STUDIES: I reviewed the imaging studies and the labs and had a detailed discussion with Mr. Demarco. I also noted that his creatinine is elevated to 2.27, which is probably related to longstanding obstruction related to the calculi. I again explained to him that it may not be feasible to place a stent because of the very large size of the calculus in the renal pelvis. If I cannot place a stent, then he certainly will need followup procedures in the form of ureteroscopy and laser and possible shockwave lithotripsy. He may still end up requiring percutaneous nephrolithotripsy because of the multiple renal calculi also and he may require placement of a percutaneous nephrostomy tube if I am not able to place a stent. All of his questions were answered in detail. PLAN: Plan is for the right stent insertion, possible ureteroscopy and laser. [id number]/[facility] #: [id number] PRIYANKA
[~2017-12-08 07:52] MED LIST: Buffered Lidocaine 0.9% SYRIN* 5 ML/SYR SYRINGE INTRADERM ONE; Iohexol 180 (CONTRAST) 10 ML SDV IV ONE
[2017-12-08] MEDS ORDERED: cefTRIAXone(*) 2 GM ADDV.VIAL IVPB ONE (08:44)
[2017-12-08] MEDS ORDERED: fentaNYL* 50 MCG/ML 2 ML VIAL (100 MCG VIAL) ONE (09:03)
[2017-12-08] MEDS ORDERED: Midazolam* 1 MG/ML 2 ML VIAL (2 MG) ONE (09:04)
[2017-12-08] MEDS ORDERED: DiMENhydriNATE IV* 50 MG/ML VIAL IV PUSH PRN (09:41)
[2017-12-08] MEDS ORDERED: fentaNYL* 50 MCG/ML 2 ML VIAL (100 MCG VIAL) IV PRN (09:41)
[2017-12-08] MEDS ORDERED: Ondansetron INJ* 2 MG/ML VIAL IV PRN (09:41)
[2017-12-08] MEDS ORDERED: PROCHLORPERAZINE INJ 5 MG/ML 2 ML VIAL IV PRN (09:41)
[2017-12-08] MEDS ORDERED: Naloxone* 0.4 MG/ML 1 ML VIAL IV PRN (09:41)
[2017-12-08] MEDS ORDERED: HYDROcodone/ACETAMIN 5-325 MG* 1 TAB PO PRN (09:41)
[2017-12-08] MEDS ORDERED: Acetaminophen TAB* 325 MG PO PRN (09:41)
[2017-12-08] MEDS ORDERED: Lidocaine 2% PF * 5 ML VIAL ONE (10:07)
[2017-12-08] MEDS ORDERED: Dexamethasone IV* 4 MG/ML 1 ML (4 MG) ONE (10:08)
[2017-12-08] MEDS ORDERED: Famotidine IV* 10 MG/ML 2 ML (20 mg) ONE (10:08)
[2017-12-08] MEDS ORDERED: Propofol* 10 MG/ML 20 ML BTL IV PUSH ONE (10:08)
[2017-12-08] MEDS ORDERED: Iohexol 180 (CONTRAST) 10 ML SDV IV ONE (11:27)
[2017-12-08] MEDS ORDERED: Tamsulosin CAP* 0.4 MG ONE (11:47)
--- NOTE | 2017-12-08 12:01 | RAD ---
INDICATION: Right stent placement COMPARISONS: CT dated December 06, 2017 TECHNIQUE: Fluoroscopy was provided for a retrograde pyelogram and stent placement. Total fluoroscopy time is: 12 seconds FINDINGS: Multiple calculi are noted of the right hemiabdomen consistent with nephrolithiasis as noted on the previous CT examination. Contrast is noted within the renal collecting system. A right ureteral stent is noted. IMPRESSION: FLUOROSCOPY WAS PROVIDED FOR A RETROGRADE PYELOGRAM AND STENT PLACEMENT CPT II Codes: G9500
[2017-12-08 12:39] VITALS: BP 140/73
--- NOTE | 2017-12-08 13:07 | RAD ---
HISTORY: s/p stent insertion COMPARISONS: CT dated December 06, 2017 VIEWS: Frontal views of the abdomen. FINDINGS: BOWEL: There is a nonspecific bowel gas pattern, with nondilated small bowel gas noted. CALCULI: Again noted are multiple calculi overlying the right renal parenchymal shadow. Again noted are left sided calculi. A right ureteral stent is noted. BONES AND SOFT TISSUES: Degenerative changes are noted of the spine. OTHER FINDINGS: None . IMPRESSION: BILATERAL NEPHROLITHIASIS WITH A RIGHT URETERAL STENT
--- NOTE | 2017-12-08 14:22 | OP ---
CC: Dr. Negra Post * DATE OF OPERATION: 12/08/17 - [facility] DATE OF : 35 SURGEON: Fazal Reyes MD ANESTHESIOLOGIST: Dr. Shine. ANESTHESIA: General. PRE-OP DIAGNOSES: 1. Right hydronephrosis. 2. Right renal calculi. 3. Multiple right ureteral calculi. POST-OP DIAGNOSES: 1. Right hydronephrosis. 2. Right renal calculi. 3. Multiple right ureteral calculi. OPERATIVE PROCEDURE: Cystoscopy, right retrograde pyelogram, right ureteral calculus manipulation, and right stent insertion. COMPLICATIONS: None. STENT USED: An 8-[place] stent, right ureter. POSTOPERATIVE CONDITION: Stable. OPERATIVE FINDINGS: 1. Markedly large prostate, predominantly median lobe. 2. Small bladder calculi. 3. Right hydronephrosis. INDICATIONS: Grupo Demarco is an 82-year-old gentleman with a history of recurrent bilateral renal calculi. He was evaluated for right hydronephrosis secondary to multiple calculi in the right ureter and also noted to have an increased creatinine. He is now being brought in for urgent right stent insertion and will probably require ureteroscopy and shock-wave lithotripsy because of the presence of multiple large calculi in the kidney and ureter. DESCRIPTION OF PROCEDURE: After induction of general anesthesia, the patient was placed in dorsal lithotomy position. Sequential compression devices were in place and functioning. Initial cystoscopy revealed a normal-appearing urethra , markedly large prostate predominantly median lobe enlargement. The bladder was examined. There were few tiny bladder calculi, which were flushed out. The trigone was difficult to visualize because of the very large median lobe. The right orifice was identified and cannulated. Retrograde pyelogram revealed fullness of the right collecting system. The open ended catheter was carefully advanced in an effort to try to manipulate the calculi proximally and especially the calculus at the ureteropelvic junction and this successful accomplished. Once this was done, an 8-Northern Irish stent was introduced and positioned under fluoroscopy with good proximal and distal positioning obtained. The patient tolerated the procedure satisfactorily and was transferred back to recovery area in stable condition. The plan is to obtain a post-operative x-ray and decide on the next step which would be either laser lithotripsy or shock-wave lithotripsy depending on the eventual calculi placement. The patient tolerated the procedure satisfactorily. [id number]/[facility] #: [id number] [facility]
== END 2017-12-08 12:49 | disposition home or self-care (01) ==
LOC: OR 07:52
PROVIDERS: ATTEND Urology
DX: N13.2 Hydronephrosis with renal and ureteral calculous obstruction (principal); Z87.442 Personal history of urinary calculi; I25.10 Atherosclerotic heart disease of native coronary artery without angina pectoris; E78.00 Pure hypercholesterolemia, unspecified; J42 Unspecified chronic bronchitis
CPT/HCPCS: 74018; 74420; 93005; C1876; J0696; J1100; J2250; J2704; J3010

== ENCOUNTER 2017-12-20 06:58 | Day surgery (SDC) | payer MEDICARE ==
[~2017-12-20 06:58] MED LIST changes: +Dexamethasone IV* 4 MG/ML 1 ML (4 MG) IV SLOW PU ONE; +Famotidine IV* 10 MG/ML 2 ML (20 mg) IV ONE; -Iohexol 180 (CONTRAST) 10 ML SDV IV ONE
[2017-12-20] MEDS ORDERED: Dexamethasone IV* 4 MG/ML 1 ML (4 MG) ONE (07:32)
[2017-12-20] MEDS ORDERED: cefTRIAXone(*) 2 GM ADDV.VIAL IVPB ONE (07:32)
[2017-12-20] MEDS ORDERED: Famotidine IV* 10 MG/ML 2 ML (20 mg) ONE (07:32)
[2017-12-20] MEDS ORDERED: fentaNYL* 50 MCG/ML 2 ML VIAL (100 MCG VIAL) ONE (08:33)
[2017-12-20] MEDS ORDERED: Iohexol 180 (CONTRAST) 10 ML SDV IV ONE (08:49)
[2017-12-20] MEDS ORDERED: Ondansetron INJ* 2 MG/ML VIAL ONE (09:14)
[2017-12-20] MEDS ORDERED: Propofol* 10 MG/ML 20 ML BTL IV PUSH ONE (09:14)
[2017-12-20] MEDS ORDERED: Naloxone* 0.4 MG/ML 1 ML VIAL IV PRN (09:52)
[2017-12-20] MEDS ORDERED: fentaNYL* 50 MCG/ML 2 ML VIAL (100 MCG VIAL) IV PRN (09:52)
--- NOTE | 2017-12-20 10:25 | RAD ---
INDICATION: Stent COMPARISONS: December 08, 2017 TECHNIQUE: Fluoroscopy was provided for a retrograde pyelogram and stent placement. Total fluoroscopy time is: 14 seconds FINDINGS: Spot images demonstrate calculi overlying the lower pole of the renal parenchymal shadow. Contrast is noted within the renal collecting system which is mildly dilated. A ureteral stent is noted. IMPRESSION: FLUOROSCOPY WAS PROVIDED FOR A RETROGRADE PYELOGRAM AND STENT PLACEMENT CPT II Codes: G9500
[2017-12-20 10:49] VITALS: BP 149/85
--- NOTE | 2017-12-20 11:46 | RAD ---
HISTORY: s/p right ureteroscopy and stent COMPARISONS: December 08, 2017 VIEWS: Frontal views of the abdomen. FINDINGS: BOWEL: There is a nonspecific bowel gas pattern, with nondilated small bowel gas noted. There is a large amount of stool within the colon. CALCULI: Again noted are calculi overlying the right renal parenchymal shadow. A right ureteral stent is noted. BONES AND SOFT TISSUES: The patient is status post median sternotomy. Degenerative changes are noted. OTHER FINDINGS: The lung bases are clear. There is no subphrenic gas. IMPRESSION: RIGHT NEPHROLITHIASIS WITH A RIGHT URETERAL STENT.
--- NOTE | 2017-12-21 01:54 | OP ---
CC: Dr. Negra Post * DATE OF OPERATION: 12/20/17 - [facility] DATE OF : 35 SURGEON: Dr. Reyes. ANESTHESIOLOGIST: Dr. Kc. ANESTHESIA: General. PRE-OP DIAGNOSES: 1. Right hydronephrosis. 2. Right renal calculi. 3. Right ureteral calculi. POST-OP DIAGNOSES: 1. Right hydronephrosis. 2. Right renal calculi. 3. Right ureteral calculi. OPERATIVE PROCEDURE: Cystoscopy, right stent removal, right retrograde pyelogram, right ureteroscopy and stone extraction, right pyeloscopy, and right stent insertion. COMPLICATIONS: None. STENT USED: 8-[place]rainian [place] stent right ureter. INDICATIONS: Grupo Demarco is an 82-year-old gentleman who had undergone urgent right stent insertion because of multiple obstructing calculi in the right ureter. In addition, he has multiple large right renal calculi and also has a very large prostate especially the median lobe. FINDINGS: 1. Markedly enlarged prostate predominantly median lobe enlargement. 2. Multiple calculi, right ureter (including 1 large 1.5 cm calculus). 3. Right hydronephrosis. POSTOPERATIVE CONDITION: Stable. DESCRIPTION OF PROCEDURE: After induction of general anesthesia, the patient was placed in dorsal lithotomy position. Sequential compression devices were in place and functioning. Initial cystoscopy revealed a normal-appearing urethra, a markedly enlarged prostate with predominant medium lobe enlargement, which made visualization of the trigone very difficult. The previously placed stent was noted and removed. A guidewire was introduced into the right ureter and advanced into the proximal collecting system. Retrograde pyelogram revealed right hydronephrosis. A 6-Ukrainian semi-rigid ureteroscope was introduced and advanced into the ureter. In the distal to mid ureter, two smaller calculi were noted which were very friable and fragmented with engagement of the three-pronged grasper. These were flushed out. The ureteroscope was then advanced under direct visualization and at the level of the ureteropelvic junction a much larger approximately 1.5 cm calculus was visualized. With the irrigation, the stone moved into the right kidney and the ureteroscope was advanced into the renal pelvis and pyeloscopy was performed. The calculus could be seen in the dependent portion of the renal pelvis and was engaged using a 3-pronged grasper. The stone was carefully retrieved and brought out of the ureter and then sent for analysis. The ureteroscope was again advanced and the entire distal mid and proximal ureter were visualized to make sure there were no remaining calculi in the ureter and none were noted. An 8-Ukrainian stent was introduced and positioned under fluoroscopy with good proximal and distal positioning obtained. The patient has multiple renal calculi which will require shockwave lithotripsy at a later date. He also as noted has a very large prostate and may require a transurethral resection of the prostate to remove the median lobe and facilitate passage of stone fragments down the road. The patient tolerated the procedure satisfactorily and was transferred back to the recovery area in stable condition. [id number]/[facility] #: [id number] PRIYANKA
== END 2017-12-20 11:10 | disposition home or self-care (01) ==
LOC: OR 06:58
PROVIDERS: ATTEND Urology
DX: N13.2 Hydronephrosis with renal and ureteral calculous obstruction (principal); I25.10 Atherosclerotic heart disease of native coronary artery without angina pectoris; Z95.1 Presence of aortocoronary bypass graft; J44.9 Chronic obstructive pulmonary disease, unspecified
CPT/HCPCS: 74018; 74420; 82365; 88300; C2625; J0696; J1100; J2405; J2704; J3010

== ENCOUNTER 2018-01-03 09:47 | Day surgery (SDC) | payer MEDICARE ==
[2018-01-03] MEDS ORDERED: Famotidine IV* 10 MG/ML 2 ML (20 mg) ONE (10:15)
[2018-01-03] MEDS ORDERED: cefTRIAXone(*) 2 GM ADDV.VIAL IVPB ONE (10:15)
[2018-01-03] MEDS ORDERED: Dexamethasone IV* 4 MG/ML 1 ML (4 MG) ONE (10:15)
--- NOTE | 2018-01-03 13:24 | RAD ---
INDICATION: Nephrolithiasis COMPARISON: December 20, 2017 TECHNIQUE: A single view of the abdomen is submitted. FINDINGS: Bones: There are no acute bony findings. Soft tissues: The soft tissues appear normal. The psoas margins are sharp. Bowel gas pattern: Normal Calcifications: There is bilateral nephrolithiasis, unchanged. Multiple right-sided calcific densities are present which are closely opposed and collectively measure 2.8 cm. There is a dominant 1.2 cm calcification in the left. Other: There is a right ureteral stent in expected position IMPRESSION: BILATERAL NEPHROLITHIASIS.
[2018-01-03] MEDS ORDERED: Lidocaine 2% PF * 5 ML VIAL ONE (14:34)
[2018-01-03] MEDS ORDERED: Propofol* 10 MG/ML 20 ML BTL IV PUSH ONE (14:34)
[2018-01-03] MEDS ORDERED: Ondansetron INJ* 2 MG/ML VIAL IV PRN (14:37)
[2018-01-03] MEDS ORDERED: Naloxone* 0.4 MG/ML 1 ML VIAL IV PRN (14:37)
[2018-01-03] MEDS ORDERED: fentaNYL* 50 MCG/ML 2 ML VIAL (100 MCG VIAL) IV PRN (14:37)
[2018-01-03 16:18] VITALS: BP 140/90
--- NOTE | 2018-01-03 16:39 | RAD ---
INDICATION: Lithotripsy COMPARISON: January 03, 2018 TECHNIQUE: A single view of the abdomen is submitted. FINDINGS: Bones: There are no acute bony findings. Soft tissues: The soft tissues appear normal. The psoas margins are sharp. Bowel gas pattern: Normal Calcifications: There is fragmentation of the dominant right renal calculi.. Calculi are otherwise unchanged. Other: There is right ureteral stent in expected position IMPRESSION: INTERVAL FRAGMENTATION RIGHT RENAL CALCULI.
--- NOTE | 2018-01-04 03:28 | OP ---
CC: Dr. Negra Post; Fazal Reyes MD* OPERATIVE REPORT: DATE OF OPERATION: 01/03/18 - [facility] DATE OF : 35 SURGEON: Fazal Reyes MD ANESTHESIOLOGIST: Dr. Kc. ANESTHESIA: General. PRE-OP DIAGNOSIS: Large right renal calculi. POST-OP DIAGNOSIS: Large right renal calculi. OPERATIVE PROCEDURE: Shock-wave lithotripsy of right renal calculi. INDICATIONS: Grupo Demarco is an 82-year-old gentleman who had undergone previous stent insertion and successful treatment of obstructing right ureteral calculi. At that time, he had been noted to have multiple large right renal calculi and has been brought in for treatment of the same. Because of the large stone burden, I have explained to him that he may require multiple procedures including laser lithotripsy and possible repeat shock-wave lithotripsy in an effort to achieve complete fragmentation. COMPLICATIONS: None. POSTOPERATIVE CONDITION: Stable. DESCRIPTION OF PROCEDURE: After induction of general anesthesia, the patient was placed on the lithotripsy table in supine position. The dominant calculus adjacent to the proximal coil of the right stent was localized using fluoroscopy and shock- wave lithotripsy was commenced at a rate of 60 shocks per minute. After the initial 300 shocks, there was a brief pause in lithotripsy to minimize any potential trauma to the kidney. Lithotripsy was then resumed and a total of 2400 shocks were administered. The patient tolerated the procedure satisfactorily and was transferred back to the recovery area in stable condition. [id number]/[facility] #: [id number] MTDD
== END 2018-01-03 16:19 | disposition home or self-care (01) ==
LOC: OR 09:47
PROVIDERS: ATTEND Urology
DX: N20.0 Calculus of kidney (principal); J44.9 Chronic obstructive pulmonary disease, unspecified; I25.10 Atherosclerotic heart disease of native coronary artery without angina pectoris; Z95.1 Presence of aortocoronary bypass graft
CPT/HCPCS: 74018; J0696; J1100; J2704

== ENCOUNTER 2018-02-20 10:42 | Day surgery (SDC) | payer MEDICARE ==
[~2018-02-20 10:42] MED LIST changes: +Acetaminophen TAB* 325 MG PO PRN; -Dexamethasone IV* 4 MG/ML 1 ML (4 MG) IV SLOW PU ONE; -Famotidine IV* 10 MG/ML 2 ML (20 mg) IV ONE
[2018-02-20] MEDS ORDERED: Phenylephr/Ketorolac 1%/0.3% OPH DROP BTL ONE (12:20)
[2018-02-20] MEDS ORDERED: Phenylephrine 2.5% OPTH.SOL* 2 ML BTL ONE (12:20)
[2018-02-20] MEDS ORDERED: Neomycin/Polymy/Dex OPHTH.OIN* 3.5 GM ONE (12:20)
[2018-02-20] MEDS ORDERED: Ketorolac 0.5% OPHTH (NF) 0.5 % 5 ML BTL ONE (12:20)
[2018-02-20] MEDS ORDERED: Tetracaine 0.5% OPTH.SOL 4 ML* 1 DROP BTL ONE (12:20)
[2018-02-20] MEDS ORDERED: Cyclopentolate 1% OPTH.SOL* 2 ML BTL ONE (12:20)
[2018-02-20] MEDS ORDERED: Tropicamide 1% OPTH.SOL* BTL ONE (12:20)
[2018-02-20] MEDS ORDERED: Lidocaine 1%* 5 ML VIAL ONE (12:20)
[2018-02-20] MEDS ORDERED: Midazolam* 1 MG/ML 2 ML VIAL (2 MG) ONE (13:02)
[2018-02-20 13:59] VITALS: BP 149/85
--- NOTE | 2018-02-21 09:53 | OP ---
DATE OF OPERATION: 02/20/18 - [facility] DATE OF : 35 SURGEON: Clyde Garcia MD HEALTHCARE ADMINISTRATION INTERN: None. ANESTHESIA: Topical with intravenous sedation. PRE-OP DIAGNOSIS: Cataract, and small pupil, left eye. POST-OP DIAGNOSIS: Cataract, and small pupil, left eye. OPERATIVE PROCEDURE: Phacoemulsification and cataract extraction with posterior chamber intraocular lens implant, left eye. COMPLICATIONS: None. BLOOD LOSS: None. DESCRIPTION OF PROCEDURE: The patient was brought to the operating room and received a small amount of intravenous sedation, and a drop of tetracaine to his left eye. The patient was prepped and draped in the usual sterile fashion for ophthalmic surgery and attention was directed to the left eye where a speculum was placed. It was noted that his pupil measured approximately 4 mm. A paracentesis was created at the 5 o'clock position and 0.1 cc of 1% preservative-free lidocaine was injected into the anterior chamber followed by DisCoVisc. The eye was digitally stabilized while a 2.75 mm keratome was used to create a triplanar clear corneal incision at the 3 o'clock position. A Malyugin ring was introduced into the anterior chamber and used to capture the pupillary margin. A continuous curvilinear capsulorrhexis was created with cystotome and Utrata forceps. BSS on a cannula was used to hydrodissect the lens from the capsule. Phacoemulsification was performed using a divide-and- conquer technique to create 4 fragments, which were removed. Residual cortical material was removed with irrigation and aspiration. DisCoVisc was used to inflate the capsular bag. An AU00T0 16.0 diopter lens was inserted into the capsular bag. DisCoVisc was removed from behind the lens. Supplemental DisCoVisc was used anterior to the lens. The Malyugin ring was removed. At this point, all the DisCoVisc was removed from the anterior chamber and the capsular bag using irrigation and aspiration. BSS on a cannula was used to hydrate the corneal stroma and seal the wound. At the end of the case, the pupil was round, the lens was centered, the eye pressure appeared normal, and the wound was water tight. The speculum was removed and topical Maxitrol ointment was placed on the surface of the eye. The eye was closed, patched and shielded, and the patient was sent to the recovery room in stable condition with postoperative instructions and followup appointment given. [id number]/[facility] #: [id number] PRIYANKA
== END 2018-02-20 14:17 | disposition home or self-care (01) ==
LOC: OREAST 10:42
PROVIDERS: ATTEND Ophthalmology
DX: H25.12 Age-related nuclear cataract, left eye (principal); I25.10 Atherosclerotic heart disease of native coronary artery without angina pectoris; Z95.1 Presence of aortocoronary bypass graft; E78.5 Hyperlipidemia, unspecified
CPT/HCPCS: A9270-GY; C9447; J2250; V2632

== ENCOUNTER 2018-02-27 06:48 | Day surgery (SDC) | payer MEDICARE ==
[2018-02-27] MEDS ORDERED: fentaNYL* 50 MCG/ML 2 ML VIAL (100 MCG VIAL) ONE (08:21)
[2018-02-27] MEDS ORDERED: Phenylephr/Ketorolac 1%/0.3% OPH DROP BTL ONE (08:22)
[2018-02-27] MEDS ORDERED: Lidocaine 2% PF * 5 ML VIAL ONE (08:36)
[2018-02-27] MEDS ORDERED: Propofol* 10 MG/ML 20 ML BTL IV PUSH ONE (08:36)
[2018-02-27 09:08] VITALS: BP 133/87
--- NOTE | 2018-02-27 11:57 | OP ---
DATE OF OPERATION/DATE OF DICTATION: 02/27/2018 - [facility] DATE OF : 1935. SURGEON: Dr. Clyde Garcia. MAIL CARRIER TECHNICIAN: None. ANESTHESIA: Topical with intravenous sedation. PRE-OP DIAGNOSIS: Cataract, right eye. POST-OP DIAGNOSIS: Cataract, right eye. OPERATIVE PROCEDURE: Phacoemulsification and cataract extraction with posterior chamber intraocular lens implant, right eye. COMPLICATIONS: None. BLOOD LOSS: None. DESCRIPTION OF PROCEDURE: The patient was brought to the operating room and received a small amount of intravenous sedation. A drop of Tetracaine was placed in his right eye. He was prepped and draped in the usual sterile fashion for ophthalmic surgery and attention was directed to the right eye where a speculum was placed. A paracentesis was created at the 11 o'clock position and 0.1 cc of 1 percent preservative-free Lidocaine was injected into the anterior chamber followed by DisCoVisc. The eye was digitally stabilized while a 2.75 mm keratome was used to create a triplanar clear corneal incision at the 9 o'clock position. A continuous curvilinear capsulorrhexis was created with a cystotome and Utrata forceps. BSS on a cannula was used to hydrodissect the lens from the capsule. Phacoemulsification was performed in a divide-and- conquer technique to create four fragments which were removed. Residual cortical material was removed with irrigation and aspiration. DisCoVisc was used to inflate the capsular bag and an AUOOTO 16.5 diopter lens was folded and inserted into the capsular bag. DisCoVisc was removed using irrigation and aspiration. BSS on a cannula was used to hydrate the corneal stroma and seal the wound. At the end of the case the pupil was round and the lens was centered. The eye was of normal pressure and the wound was water tight. The speculum was removed and topical Maxitrol ointment was placed on the surface of the eye. The eye was closed, patched and shielded and the patient was sent to the recovery room in stable condition with post operative instructions and follow-up appointment given. [id number]/[facility] #: [id number] MTDD
[2018-02-27] MEDS ORDERED: Lidocaine 1%* 5 ML VIAL ONE (16:08)
[2018-02-27] MEDS ORDERED: Ketorolac 0.5% OPHTH (NF) 0.5 % 5 ML BTL ONE (16:08)
[2018-02-27] MEDS ORDERED: Phenylephrine 2.5% OPTH.SOL* 2 ML BTL ONE (16:08)
[2018-02-27] MEDS ORDERED: Cyclopentolate 1% OPTH.SOL* 2 ML BTL ONE (16:08)
[2018-02-27] MEDS ORDERED: Tropicamide 1% OPTH.SOL* BTL ONE (16:08)
[2018-02-27] MEDS ORDERED: Neomycin/Polymy/Dex OPHTH.OIN* 3.5 GM ONE (16:08)
[2018-02-27] MEDS ORDERED: Tetracaine 0.5% OPTH.SOL 4 ML* 1 DROP BTL ONE (16:08)
== END 2018-02-27 09:08 | disposition home or self-care (01) ==
LOC: OREAST 06:48
PROVIDERS: ATTEND Ophthalmology
DX: H25.11 Age-related nuclear cataract, right eye (principal); I25.10 Atherosclerotic heart disease of native coronary artery without angina pectoris; E78.5 Hyperlipidemia, unspecified; Z95.1 Presence of aortocoronary bypass graft
CPT/HCPCS: A9270-GY; C9447; J2704; J3010; V2632

== ENCOUNTER 2018-10-17 05:38 | Day surgery (SDC) | payer MEDICARE ==
--- NOTE | 2018-10-16 14:49 | HP ---
CC: Dr. Post; Dr. Fazal Reyes* ADMITTING HISTORY AND PHYSICAL: DATE OF ADMISSION: 10/17/18 ADMITTING DIAGNOSIS: Left renal calculus. PLANNED PROCEDURE: Shockwave lithotripsy left renal calculus. SURGEON: Dr. Reyes. HISTORY OF PRESENT ILLNESS: Grupo Demarco is an 82-year-old gentleman with a history of bilateral renal calculi. He had previously undergone successful treatment of right renal and right ureteral calculi and is now being brought in for shockwave lithotripsy of left renal calculus. PAST MEDICAL HISTORY: Significant for: 1. Renal calculi. 2. History of coronary artery disease. 3. History of high cholesterol. 4. History of concussion this past winter while in [place]. MEDICATIONS ON ADMISSION: 1. Rosuvastatin 20 mg daily. 2. Montelukast 10 mg daily. 3. Flomax 0.4 mg daily. 4. Finasteride 5 mg daily. ALLERGIES: No known drug allergies. FAMILY HISTORY: Negative for stones. SOCIAL HISTORY: He is a nonsmoker. REVIEW OF SYSTEMS: He is otherwise in excellent health. He denies any chest pain or shortness of breath. PHYSICAL EXAMINATION GENERAL: Reveals a pleasant elderly gentleman. VITAL SIGNS: Blood pressure is 138/90, pulse 88 per minute and regular, temperature 97, oxygen saturation 96% on room air. LUNGS: Clear bilaterally. CARDIOVASCULAR: Regular rate and rhythm. S1, S2. ABDOMEN: Soft without masses. IMPRESSION: An 82-year-old gentleman with a history of bilateral renal calculi , who is now being brought in for treatment of an approximately 1 cm left lower pole calculus. I have discussed the procedure in detail including possible risk of bleeding; infection; incomplete fragmentation, subsequently requiring stent insertion; and he appears to understand and wishes to proceed as planned. [id number]/[facility] #: [id number] MTDD
[~2018-10-17 05:38] MED LIST changes: -Acetaminophen TAB* 325 MG PO PRN; -Buffered Lidocaine 0.9% SYRIN* 5 ML/SYR SYRINGE INTRADERM ONE; +Buffered Lidocaine 1% SYRIN* 1 ML/SYRINGE INTRADERM ONE
[2018-10-17] MEDS ORDERED: Lactated Ringers 1000 ML Bag* 1,000 ML IV SCH (06:00)
[2018-10-17] MEDS ORDERED: Buffered Lidocaine 1% SYRIN* 1 ML/SYRINGE INTRADERM ONE (06:09)
[2018-10-17] MEDS ORDERED: cefTRIAXone(*) 1 GM ADVAN/BAG ONE (06:10)
[2018-10-17] MEDS ORDERED: fentaNYL* 50 MCG/ML 2 ML VIAL (100 MCG VIAL) ONE (07:28)
[2018-10-17] MEDS ORDERED: Midazolam* 1 MG/ML 5 ML VIAL (5 MG) ONE (07:28)
[2018-10-17] MEDS ORDERED: Furosemide IV* 10 MG/ML 2 ML VIAL (20 MG) ONE (07:54)
[2018-10-17] MEDS ORDERED: Naloxone* 0.4 MG/ML 1 ML VIAL IV PRN (08:01)
[2018-10-17] MEDS ORDERED: Ondansetron INJ* 2 MG/ML VIAL IV PRN (08:01)
[2018-10-17] MEDS ORDERED: oxyCODONE TAB* 5 MG TAB PO PRN (08:01)
[2018-10-17] MEDS ORDERED: fentaNYL* 50 MCG/ML 2 ML VIAL (100 MCG VIAL) IV PRN (08:01)
[2018-10-17] MEDS ORDERED: Ondansetron INJ* 2 MG/ML VIAL ONE (08:08)
[2018-10-17 09:23] VITALS: BP 153/98
[2018-10-17] MEDS ORDERED: Lidocaine 2% PF * 5 ML VIAL ONE ×2 (09:23)
--- NOTE | 2018-10-17 17:47 | OP ---
CC: Negra Post MD; Fazal Reyes MD* OPERATIVE NOTE: DATE OF OPERATION: 10/17/18 - [facility] DATE OF : 35 SURGEON: Fazal Reyes MD. ANESTHESIOLOGIST: Dr. Ordoñez. ANESTHESIA: General. PRE-OP DIAGNOSIS: Left renal calculus. POST-OP DIAGNOSIS: Left renal calculus. OPERATIVE PROCEDURE: Shock-wave lithotripsy of left renal calculus. COMPLICATIONS: None. POSTOPERATIVE CONDITION: Stable. INDICATIONS: Grupo Demarco is an 82-year-old gentleman with a history of bilateral renal calculi. Last year, he had undergone successful treatment of right renal and ureteral calculi and was noted at that time to have an approximately 1 cm calculus in the left kidney. He is now being brought in for treatment of the same. DESCRIPTION OF PROCEDURE: After induction of general anesthesia, the patient was placed on the lithotripsy table in supine position. The calculus in the mid to lower pole area of the left kidney was localized under fluoroscopy. Shock-wave lithotripsy was commenced at a rate of 60 shocks per minute. After the initial 300 shocks, there was a pause in lithotripsy for several minutes and effort to minimize any potential trauma to the kidney. Lithotripsy was then resumed and a total of 2400 shocks were administered. The patient tolerated the procedure satisfactorily and was transferred back to the recovery area in stable condition. [id number]/[facility] #: [id number] MTDD
== END 2018-10-17 09:45 | disposition home or self-care (01) ==
LOC: OR 05:38
PROVIDERS: ATTEND Urology
DX: N20.0 Calculus of kidney (principal); I25.10 Atherosclerotic heart disease of native coronary artery without angina pectoris; Z95.1 Presence of aortocoronary bypass graft; J44.9 Chronic obstructive pulmonary disease, unspecified
CPT/HCPCS: 74018; J0696; J1940; J2250; J2405; J3010

== ENCOUNTER → 2019-02-01 05:54 | Day surgery (SDC) | payer MEDICARE ==
--- NOTE | 2019-01-30 19:27 | HP ---
CC: Dr. Negra Post * ADMITTING HISTORY AND PHYSICAL: DATE OF ADMISSION: 02/01/19 - [facility] ADMITTING DIAGNOSIS: Bilateral ureteral calculi. PLANNED PROCEDURE: Right ureteroscopy, possible laser lithotripsy and stent insertion and possible left ureteroscopy and stent insertion (possibly to be followed in the near future by shockwave lithotripsy of right renal calculi). SURGEON: Dr. Reyes. HISTORY OF PRESENT ILLNESS: Grupo Demarco is an 83-year-old gentleman with a history of recurrent multiple bilateral renal calculi. He had previously undergone shockwave lithotripsy and his stone analysis had revealed both calcium as well as uric acid calculi. He was recently seen in followup and was noted to have what appeared to be 3 to 4 calculi in the area of the right distal ureter with mild right caliectasis. In addition, he has what appeared to be 2 small calculi in the area of the left distal ureter and also has some calculi in the right kidney. The complicating factor is that he has an extremely large prostate, which causes distortion of his distal ureter and makes it difficult for him to pass any calculi. He is now being brought in for a possible bilateral ureteroscopy (unless he passed any of the calculi) and may require right renal calculi shockwave lithotripsy in the near future also. PAST MEDICAL HISTORY: Significant for remote history of coronary artery disease , history of bilateral renal calculi, history of high cholesterol. MEDICATIONS ON ADMISSION: 1. Flomax 0.4 mg daily. 2. Finasteride 5 mg daily. 3. Montelukast 10 mg daily. 4. Rosuvastatin 20 mg daily. ALLERGIES: No known drug allergies. FAMILY HISTORY: Negative for stones. SOCIAL HISTORY: Smoking history: He is a nonsmoker. REVIEW OF SYSTEMS: He is otherwise in very good health and looks younger than his stated age. There is no history of diabetes mellitus or any other major systemic illness. He denies any chest pain or shortness of breath. PHYSICAL EXAMINATION GENERAL: Reveals a pleasant elderly gentleman. VITAL SIGNS: Blood pressure is 136/84, pulse 60 per minute and regular, oxygen saturation 98% on room air, temperature 96.9. LUNGS: Clear bilaterally. CARDIOVASCULAR: Regular rate and rhythm. S1, S2. ABDOMEN: Soft, without masses. IMPRESSION: An 83-year-old gentleman with what appeared to be bilateral distal ureteral calculi in addition to right renal calculi and a markedly enlarged prostate causing distortion of his distal ureter and making it difficult for him to pass any of the calculi. PLAN: Plan is for right ureteroscopy, possible laser and stent insertion, ureteroscopy, possible stone removal and stent insertion (possibly to be followed in the near future by right renal calculi shockwave lithotripsy). [id number]/[facility] #: [id number] MTDD
[~2019-02-01 05:54] MED LIST changes: +Chloroprocaine 2%* 20 ML VIAL ONE; +Dexamethasone IV* 4 MG/ML 1 ML (4 MG) IV SLOW PU ONE; +Dexamethasone IV* 4 MG/ML 1 ML (4 MG) ONE; +DiMENhydriNATE IV* 50 MG/ML VIAL IV PUSH PRN; +Famotidine IV* 10 MG/ML 2 ML (20 mg) IV ONE; +Famotidine IV* 10 MG/ML 2 ML (20 mg) ONE; +Furosemide IV* 10 MG/ML 2 ML VIAL (20 MG) ONE; +Iohexol 180 (CONTRAST) 10 ML SDV IV ONE; +Lactated Ringers 1000 ML Bag* 1,000 ML IV SCH; +Lidocaine 2% PF * 5 ML VIAL ONE; +Midazolam* 1 MG/ML 5 ML VIAL (5 MG) ONE; +Naloxone* 0.4 MG/ML 1 ML VIAL IV PRN; +Ondansetron INJ* 2 MG/ML VIAL IV PRN; +Ondansetron INJ* 2 MG/ML VIAL ONE; +Phenylephrine 40 MCG/ML SYRINGE ONE; +Propofol* 10 MG/ML 20 ML BTL ONE; +cefTRIAXone(*) 2 GM ADDV.VIAL IVPB ONE; +fentaNYL* 50 MCG/ML 2 ML VIAL (100 MCG VIAL) ONE; +oxyCODONE/Acetamin 5/325 MG* TAB ONE; +oxyCODONE/Acetamin 5/325 MG* TAB PO PRN
[2019-02-01] MEDS: fentaNYL* 50 MCG/ML 2 ML VIAL (100 MCG VIAL) IV PRN ×3 (09:40→10:17)
[2019-02-01 11:09] VITALS: BP 169/104
--- NOTE | 2019-02-01 14:00 | OP ---
CC: Dr. Negra Post * DATE OF OPERATION: 02/01/19 - [facility] DATE OF : 35 SURGEON: Fazal Reyes MD ANESTHESIOLOGIST: Dr. Robin. ANESTHESIA: General. PRE-OP DIAGNOSIS: Bilateral ureteral calculi. POST-OP DIAGNOSES: 1. Bilateral ureteral calculi. 2. Right hydronephrosis. 3. Enlarged prostate. OPERATIVE PROCEDURES: 1. Cystoscopy, right retrograde pyelogram, right ureteroscopy, laser lithotripsy of multiple right ureteral calculi and removal of calculi fragments and right stent insertion. 2. Left retrograde and left stent insertion. COMPLICATIONS: None. STENT USED: 8-Belgian stent, right ureter and 7-Belgian stent, left ureter. INDICATIONS: Grupo Demarco is an 83-year-old gentleman with a history of bilateral renal and ureteral calculi and an enlarged prostate. OPERATIVE FINDINGS: 1. Markedly enlarged obstructing prostate. 2. Multiple right ureteral calculi (5 to 6) causing right hydronephrosis and proximal hydroureter. 3. Left ureteral calculi without hydronephrosis on the left side. POSTOPERATIVE CONDITION: Stable. DESCRIPTION OF PROCEDURE: After induction of general anesthesia, the patient was placed in dorsal lithotomy position. Sequential compression devices were in place and functioning. Initial cystoscopy revealed a normal-appearing urethra, a markedly enlarged prostate with especially large median lobe. The bladder was examined. It was difficult to visualize the trigone because of the distortion caused by the median lobe. The right orifice was identified and cannulated. Retrograde pyelogram revealed right hydronephrosis with proximal hydroureter. A 6- Belgian semirigid ureteroscope was introduced and advanced into the distal right ureter. There were multiple calculi noted in the distal right ureter, several of them measuring over 5 to 6 mm. Using a 550 micron holmium laser, these were successfully fragmented into multiple small fragments and a fair number of fragments were removed from the ureter and sent for analysis. I did not attempt to remove all of the fragments as I think the patient may end up requiring another procedure to completely clear out the ureter. In addition, he also has right renal calculi that may need an additional procedure at a future date. An 8-Belgian stent was introduced and positioned under fluoroscopy with good proximal and distal positioning obtained. Attention was directed to the left side. Again, the left orifice was difficult to visualize because of the distortion of the trigone caused by the significant median lobe enlargement. Retrograde pyelogram did not reveal any left hydronephrosis. There were some resistance to initial advancement of the guidewire suggesting that there may still be a residual calculus or calculi in the left distal ureter. A 7- Belgian stent was positioned under fluoroscopic monitoring. My plan is to leave the left stent in for a week or so to allow passive dilatation of the ureter. Following the stent removal, I think any small calculi that are there should be able to pass. A Barboza catheter was placed for temporary bladder drainage. The patient tolerated the procedure satisfactorily and was transferred back to the recovery area in stable condition. [id number]/[facility] #: [id number] MTDD
== END | disposition home or self-care (01) ==
LOC: OR 05:54
PROVIDERS: ATTEND Urology
DX: N13.2 Hydronephrosis with renal and ureteral calculous obstruction (principal); N40.0 Benign prostatic hyperplasia without lower urinary tract symptoms; Z87.442 Personal history of urinary calculi; Z95.1 Presence of aortocoronary bypass graft; I25.10 Atherosclerotic heart disease of native coronary artery without angina pectoris; J44.9 Chronic obstructive pulmonary disease, unspecified
CPT/HCPCS: 74018; 74420; 82365; 88300; A9270-GY; C1876; J0696; J1100; J1940; J2250; J2400; J2405; J2704; J3010

== ENCOUNTER 2019-02-11 10:12 | Day surgery (SDC) | payer MEDICARE ==
[~2019-02-11 10:12] MED LIST changes: -Chloroprocaine 2%* 20 ML VIAL ONE; -Dexamethasone IV* 4 MG/ML 1 ML (4 MG) ONE; -DiMENhydriNATE IV* 50 MG/ML VIAL IV PUSH PRN; -Famotidine IV* 10 MG/ML 2 ML (20 mg) ONE; -Furosemide IV* 10 MG/ML 2 ML VIAL (20 MG) ONE; -Iohexol 180 (CONTRAST) 10 ML SDV IV ONE; -Lidocaine 2% PF * 5 ML VIAL ONE; -Midazolam* 1 MG/ML 5 ML VIAL (5 MG) ONE; -Naloxone* 0.4 MG/ML 1 ML VIAL IV PRN; -Ondansetron INJ* 2 MG/ML VIAL IV PRN; -Ondansetron INJ* 2 MG/ML VIAL ONE; -Phenylephrine 40 MCG/ML SYRINGE ONE; -Propofol* 10 MG/ML 20 ML BTL ONE; -cefTRIAXone(*) 2 GM ADDV.VIAL IVPB ONE; -fentaNYL* 50 MCG/ML 2 ML VIAL (100 MCG VIAL) ONE; -oxyCODONE/Acetamin 5/325 MG* TAB ONE; -oxyCODONE/Acetamin 5/325 MG* TAB PO PRN
[2019-02-11] MEDS ORDERED: Dexamethasone IV* 4 MG/ML 1 ML (4 MG) ONE (11:42)
[2019-02-11] MEDS ORDERED: Famotidine IV* 10 MG/ML 2 ML (20 mg) ONE (11:42)
[2019-02-11] MEDS ORDERED: cefTRIAXone(*) 2 GM ADDV.VIAL IVPB ONE (11:42)
[2019-02-11] MEDS ORDERED: Lidocaine 2% PF * 5 ML VIAL ONE (11:50)
[2019-02-11] MEDS ORDERED: Propofol* 10 MG/ML 20 ML BTL ONE (11:50)
[2019-02-11] MEDS ORDERED: fentaNYL* 50 MCG/ML 2 ML VIAL (100 MCG VIAL) ONE (11:50)
[2019-02-11] MEDS ORDERED: Naloxone* 0.4 MG/ML 1 ML VIAL IV PRN (13:22)
[2019-02-11] MEDS ORDERED: DiMENhydriNATE IV* 50 MG/ML VIAL IV PUSH PRN (13:22)
[2019-02-11] MEDS ORDERED: fentaNYL* 50 MCG/ML 2 ML VIAL (100 MCG VIAL) IV PRN (13:22)
[2019-02-11 15:27] VITALS: BP 169/94
--- NOTE | 2019-02-11 23:09 | OP ---
CC: Dr. Negra Post * DATE OF OPERATION: 02/11/19 - [facility] DATE OF : 35 SURGEON: Fazal Reyes MD ANESTHESIOLOGIST: Dr. Kc. ANESTHESIA: General. PRE-OP DIAGNOSES: 1. Right renal calculi. 2. Bilateral ureteral calculi. 3. Markedly enlarged prostate. POST-OP DIAGNOSES: 1. Right renal calculi. 2. Bilateral ureteral calculi. 3. Markedly enlarged prostate. OPERATIVE PROCEDURES: 1. Shockwave lithotripsy of right renal calculi. 2. Cystoscopy and left stent removal. COMPLICATIONS: None. POSTOPERATIVE CONDITION: Stable. INDICATIONS: Grupo Demarco is an 83-year-old gentleman who had undergone bilateral stent insertion and is now being brought in for shockwave lithotripsy of the right renal calculi and left stent removal. OPERATIVE FINDINGS: 1. Markedly enlarged prostate. 2. Bilateral ureteral stents. 3. Right renal calculi. DESCRIPTION OF PROCEDURE: After induction of general anesthesia, the patient was placed in supine fashion on the lithotripsy table. The cluster of calculi in the lower pole of the right kidney was localized using fluoroscopy. Shockwave lithotripsy was commenced at a rate of 60 shocks per minute. After the initial 300 shocks, there was a pause in lithotripsy for several minutes in an effort to minimize any potential trauma to the kidney. Lithotripsy was then resumed and a total of 1400 shocks were administered. Next, the patient was placed in dorsal lithotomy position and cystoscopy was performed. The urethra appeared normal, the prostate was significantly large and obstructing. The bladder was examined, the left stent was noted and was removed intact without difficulty. Bladder was emptied. The patient tolerated the procedure satisfactorily and was transferred back to the recovery area in stable condition. [id number]/[facility] #: [id number] MTDD
== END 2019-02-11 15:27 | disposition home or self-care (01) ==
LOC: OR 10:12
PROVIDERS: ATTEND Urology
DX: N20.0 Calculus of kidney (principal); N40.0 Benign prostatic hyperplasia without lower urinary tract symptoms; I25.10 Atherosclerotic heart disease of native coronary artery without angina pectoris; Z95.1 Presence of aortocoronary bypass graft
CPT/HCPCS: 74018; J0696; J1100; J2704; J3010

== ENCOUNTER 2019-07-03 11:28 | Emergency (ER) | payer MEDICARE ==
[2019-07-03 11:50] VITALS: BP 159/96
--- NOTE | 2019-07-03 12:22 | UC ---
Respiratory Complaint HPI - HPI Summary HPI Summary: 83-year-old male with mild flulike symptoms for 2 days. He denies any fever or chills but he does have body aches and a cough and occasional sore throat. He has a history of pneumonia in the past he did get a flu shot in the fall. He is a nonsmoker. - History of Current Complaint Chief Complaint: UCGeneralIllness Stated Complaint: COUGH,SORE THROAT Time Seen by Provider: 07/03/19 12:12 Hx Obtained From: Patient, Family/Customer Energy Specialist Onset/Duration: Gradual Onset, Lasting Days Timing: Intermittent Episodes Severity Initially: Mild Severity Currently: Mild Pain Intensity: 5 Character: Cough: Nonproductive Aggravating Factors: Nothing Alleviating Factors: Nothing Associated Signs And Symptoms: Positive: Chills, URI, Nasal Congestion - Allergies/Home Medications Allergies/Adverse Reactions: Allergies Allergy/AdvReac Type Severity Reaction Status Date / Time No Known Allergies Allergy Verified 07/03/19 11:51 PMH/Surg Hx/FS Hx/Imm Hx Previously Healthy: Yes Cardiovascular History: Other - CABG GI/ History: Kidney Stones - Surgical History Surgical History: Yes Surgery Procedure, Year, and Place: CABG x3;2011, [place]. 2013 & 2018 lithotripsy. TEENAGER TONSILECTOMY. 1981 CATARACTS BILATERAL [facility] - Family History Known Family History: Negative: Cardiac Disease, Hypertension, Diabetes - Social History Occupation: Retired Lives: With Family Alcohol Use: None Substance Use Type: None Smoking Status (MU): Never Smoked Tobacco Have You Smoked in the Last Year: No - Immunization History Most Recent Influenza Vaccination: 2016 Most Recent Pneumonia Vaccination: 2016 Review of Systems All Other Systems Reviewed And Are Negative: Yes Constitutional: Positive: Chills ENT: Positive: Sore Throat, Nasal Discharge Respiratory: Positive: Cough - Nonproductive cough. Is Patient Immunocompromised?: No Physical Exam Triage Information Reviewed: Yes Appearance: Well-Appearing, No Pain Distress, Well-Nourished Vital Signs: Initial Vital Signs Temp 98.8 F 07/03/19 11:47 Pulse 88 07/03/19 11:47 Resp 16 07/03/19 11:47 BP 159/96 07/03/19 11:47 Pulse Ox 97 07/03/19 11:47 Vital Signs Reviewed: Yes Eyes: Positive: Conjunctiva Clear ENT: Positive: Pharynx normal, TMs normal, Uvula midline Neck: Positive: Supple, Nontender, No Lymphadenopathy Respiratory: Positive: Lungs clear, Normal breath sounds, No respiratory distress, No accessory muscle use Cardiovascular: Positive: RRR, No Murmur, Pulses Normal, Brisk Capillary Refill Musculoskeletal Exam: Normal Neurological Exam: Normal Psychological Exam: Normal Skin Exam: Normal Respiratory Course/Dx - Course Course Of Treatment: Rapid flu test:negative Chest X-ray:FINDINGS: The patient appears to be status post coronary artery bypass surgery. The heart is within normal limits in size. There is blunting of the right costophrenic angle which is unchanged most consistent with chronic pleural thickening. The lungs are grossly clear. There are old healed fractures of the right lateral sixth and seventh ribs. IMPRESSION: POSTSURGICAL CHANGES AND CHRONIC PLEURAL THICKENING, NO EVIDENCE FOR ACUTE FINDING. - Differential Dx/Diagnosis Provider Diagnosis: URI (upper respiratory infection) Discharge ED - Sign-Out/Discharge Documenting (check all that apply): Patient Departure All imaging exams completed and their final reports reviewed: Yes - Discharge Plan Condition: Good Disposition: HOME Referrals: Negra Post MD [Primary Care Provider] - - Billing Disposition and Condition Condition: GOOD Disposition: Home
[2019-07-03 12:46] LABS: Influenza A Molecular Negative (Negative); Influenza B Molecular Negative (Negative)
== END 2019-07-03 13:33 | disposition home or self-care (01) ==
LOC: UCEAST 11:28
DX: J06.9 Acute upper respiratory infection, unspecified (principal); Z87.01 Personal history of pneumonia (recurrent); Z95.1 Presence of aortocoronary bypass graft
CPT/HCPCS: 71046; 99212; G0463